=== PATIENT | female | born 1960 | race Caucasian/White ===

== ENCOUNTER 2016-10-15 08:08 | Emergency (ER) | payer MEDICARE, MEDICAID ==
[2016-10-15] MEDS ORDERED: Pantoprazole 80 MG in Sodium Chloride 0.9% 100 ML IV ONE (08:18)
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
[2016-10-15] MEDS ORDERED: Pantoprazole 80 MG in Sodium Chloride 0.9% 100 ML IV SCH (08:30)
[2016-10-15] MEDS ORDERED: Dextrose 5%-0.9% NaCl 1,000 ML IV SCH (08:30)
[2016-10-15] MEDS ORDERED: Pantoprazole 40 MG Vial IVPUSH ONE (08:33)
[2016-10-15] MEDS ORDERED: Aspirin 81 MG Tab.Chew PO ONE (10:19)
--- NOTE | 2016-10-15 10:24 | CR ---
Abdomen: Supine view of the abdomen was obtained. Comparison: No previous abdominal imaging. Mild scoliosis and slight degenerative change is noted within the spine. Calcifications are seen within the pelvis likely representing phleboliths. Mild vascular calcification is noted within the renal vessels. Surgical clips are seen within the upper right abdomen. Paucity of bowel gas is seen which is nonspecific. Impression: 1. Incidental findings as noted above. Diagnostic code #2
[2016-10-15] MEDS ORDERED: Nitroglycerin/D5W 25 MG/250 ML BOTTLE IV SCH (10:30)
[2016-10-15] MEDS ORDERED: fentaNYL 100 MCG/2 ML SDV IVPUSH ONE (10:59)
[2016-10-15] MEDS ORDERED: Iopamidol 755 MG/ML 50 ML Bottle IVPUSH ONE (11:00)
[2016-10-15] MEDS ORDERED: Sodium Chloride 0.9% 10 ML Syringe FLUSH ONE (11:00)
[2016-10-15] MEDS ORDERED: Iopamidol 755 Mg/ML 100 ML Bottle IVPUSH ONE (11:00)
[2016-10-15] MEDS ORDERED: Sodium Chloride 0.9% 100 ML IV SCH (11:00)
[2016-10-15] MEDS ORDERED: fentaNYL 100 MCG/2 ML SDV ONE (11:02)
--- NOTE | 2016-10-15 11:16 | CR ---
Chest: Frontal view of the chest was obtained in AP projection. Comparison: Previous chest x-ray of 05/11/16. Increased density within the left upper chest is seen which appears to be stable from previous exam. Previous left lung surgery is noted. Right-sided infusion port is seen. Right lung is clear. Heart does not appear enlarged. Mild scoliosis is present within the spine. Impression: 1. Parenchymal density within the left upper chest which remains stable from prior exam. Previous left lung surgery. 2. Other incidental findings. Nothing acute is identified. Diagnostic code #3
[2016-10-15] MEDS ORDERED: Sodium Chloride 0.9% 1,000 ML ONE (11:29)
--- NOTE | 2016-10-15 11:55 | CT ---
CT chest Technique: Multiple axial sections were obtained from above the lung apices inferiorly through the lung bases. Intravenous contrast was utilized. Comparison: Aorta shows mild atherosclerotic calcification. Ascending aorta slightly ectatic at 3.6 cm comparing to the descending aorta at 2.7 cm. No dissection is seen within the thoracic aorta. Enlarged lymph node is noted within the upper left mediastinum measuring 1.8 cm. Several other smaller lymph nodes are seen within the mediastinum which are within normal limits. No pericardial thickening is seen. Pleural thickening noted within the left upper chest. Parenchymal density is noted within the left upper chest with air bronchograms. Difficult to exclude pneumonia although finding may also be chronic as there is some chronic increased density within the left upper chest on chest x-ray. Impression: 1. Pleural thickening within the left upper chest. Parenchymal density within the left upper chest with air bronchograms. This parenchymal density could represent an area of pneumonia although finding may also be chronic as chronic increased density within the left upper chest as seen on chest x-ray. Please correlate with the patient's symptoms. 2. Slightly enlarged lymph node within the left upper mediastinum measuring 1.8 cm. Follow-up chest CT could be considered in 6 months to make sure this finding is stable or if older CTs are available, these would be helpful to determine stability. 3. Slightly ectatic ascending aorta with no evidence of dissection. Diagnostic code #9 CT abdomen and pelvis Technique: Multiple axial sections were obtained from above the dome of the diaphragm inferiorly through the pubic symphysis. Intravenous contrast was utilized. No oral contrast has been given. Comparison: No previous abdominal CT. Findings: Liver contour is irregular compatible with cirrhotic change. No focal abnormality is appreciated within the liver. Spleen is enlarged with craniocaudal measurement of 20.6 cm. Adrenal glands show no nodule. Kidneys show symmetric contrast enhancement without hydronephrosis or mass. Pancreas is within normal limits. Atherosclerotic change is noted within the aorta and iliac vessels. No aneurysm or dissection is seen. No retroperitoneal adenopathy or mesenteric abnormalities are seen. No pelvic mass or adenopathy is seen. Bone window settings were reviewed which show mild scattered degenerative change within the spine. Impression: 1. Findings compatible with cirrhosis. Splenomegaly also noted. 2. Aorta shows atherosclerotic change without aneurysm or dissection. 3. Other incidental findings as noted above. Diagnostic code #3
[2016-10-15 13:54] VITALS: BP 113/70
== END 2016-10-15 11:30 ==
LOC: JD.ED 08:08 → SUPCPDRO 08:08 → JD.ED 11:30
DX: I21.4 Non-ST elevation (NSTEMI) myocardial infarction (principal); C34.92 Malignant neoplasm of unspecified part of left bronchus or lung; R11.2 Nausea with vomiting, unspecified; D64.9 Anemia, unspecified; Z87.891 Personal history of nicotine dependence; Z90.49 Acquired absence of other specified parts of digestive tract; Z85.05 Personal history of malignant neoplasm of liver; Z79.899 Other long term (current) drug therapy; Z88.0 Allergy status to penicillin; Z88.2 Allergy status to sulfonamides; R06.02 Shortness of breath
CPT/HCPCS: 36415; 71010; 71260; 74000; 74177; 80053; 82553; 83880; 84484; 85025; 85610; 85730; 86140; 86677; 86900; 86901; 87040; 93005; 96365; 96366; 96368; 96375; 96376; 99285; A9270; C9113; J3010; J7030; J7042

== ENCOUNTER 2016-11-24 11:31 | Emergency (ER) | payer MEDICARE, MEDICAID ==
[2016-11-24] MEDS ORDERED: Sodium Chloride 0.9% 10 ML Syringe FLUSH PRN (12:21)
[2016-11-24] MEDS ORDERED: Ondansetron 4 MG/2 ML SDV IVPUSH ONE (12:21)
[2016-11-24] MEDS ORDERED: Sodium Chloride 0.9% 1,000 ML IV SCH (12:30)
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
[2016-11-24 16:30] VITALS: BP 140/78
== END 2016-11-24 16:30 | disposition home or self-care (01) ==
LOC: JD.ED 11:31
DX: B34.9 Viral infection, unspecified (principal); D69.6 Thrombocytopenia, unspecified; R10.12 Left upper quadrant pain; E03.9 Hypothyroidism, unspecified; Z85.118 Personal history of other malignant neoplasm of bronchus and lung; Z98.49 Cataract extraction status, unspecified eye; Z90.49 Acquired absence of other specified parts of digestive tract; Z98.890 Other specified postprocedural states; Z87.891 Personal history of nicotine dependence; Z79.899 Other long term (current) drug therapy; Z88.0 Allergy status to penicillin; Z88.2 Allergy status to sulfonamides
CPT/HCPCS: 36415; 80053; 85025; 86308; 96361; 96374; 99284; J2405; J7040; J7050

== ENCOUNTER 2017-03-25 11:29 | Inpatient (IN) | payer MEDICARE, MEDICAID ==
[2017-03-25] MEDS ORDERED: Sodium Chloride 0.9% 1,000 ML IV ONE (11:44)
[2017-03-25] MEDS ORDERED: Pantoprazole 40 MG Vial IVPUSH ONE (11:45)
[2017-03-25] MEDS ORDERED: Dextrose 5%-0.9% NaCl 1,000 ML IV SCH (11:45)
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
[2017-03-25] MEDS: Pantoprazole 80 MG in Sodium Chloride 0.9% 100 ML IV SCH ×2 (12:18→22:38)
[2017-03-25] MEDS ORDERED: HYDROmorphone 0.5 MG/0.5 ML Syringe IVPUSH ONE ×2 (12:45→14:00)
[2017-03-25] MEDS ORDERED: Ondansetron 4 MG/2 ML SDV IVPUSH ONE (12:45)
[2017-03-25] MEDS ORDERED: Ondansetron 4 MG/2 ML SDV IV PRN (15:03)
[2017-03-25] MEDS ORDERED: Acetaminophen/HYDROcodone 325-5 MG Tab PO PRN (15:03)
[2017-03-25] MEDS ORDERED: Polyethylene Glycol 3350 Powder 17 GM Packet PO PRN (15:03)
[2017-03-25] MEDS ORDERED: Docusate Sodium 100 MG Cap PO PRN (15:03)
[2017-03-25] MEDS ORDERED: Acetaminophen 325 MG Tab PO PRN (15:03)
[2017-03-25] MEDS ORDERED: Temazepam 15 MG Cap PO PRN (15:03)
[2017-03-25] MEDS ORDERED: Albuterol/Ipratropium 3.0-0.5 MG/3 ML Neb Soln NEB PRN (15:03)
[2017-03-25] MEDS ORDERED: Bisacodyl 5 MG Tab PO PRN (15:03)
[2017-03-25] MEDS ORDERED: Promethazine 12.5 MG in Sodium Chloride 0.9% 50 ML IV PRN (15:03)
[2017-03-25] MEDS ORDERED: diphenhydrAMINE 25 MG Cap PO PRN (15:14)
[2017-03-25] MEDS ORDERED: ClonazePAM 0.5 MG Tab PO PRN (15:14)
[2017-03-25] MEDS ORDERED: hydrALAZINE 20 MG/ML SDV IVPUSH PRN (15:16)
[2017-03-25] MEDS ORDERED: LORazepam 2 MG/ML MDV IVPUSH PRN (15:16)
[2017-03-25] MEDS ORDERED: Diphtheria,Pertussis(Acell),Tetanus Vaccine 0.5 ML SDV IM ONE (15:25)
--- NOTE | 2017-03-25 16:03 | PCM.HP ---
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 Pain (Mild 1-3)/fever Hydrocodone Bitart/Acetaminophen ([place] 325-5 Mg) 1 tab PO Q4H PRN PRN Reason: Pain (moderate 4-6) Albuterol/Ipratropium (Duoneb 3.0-0.5 Mg/3 Ml) 3 ml NEB Q4H PRN PRN Reason: Shortness Of Breath/wheezing Bisacodyl (Dulcolax) 5 mg PO DAILY PRN PRN Reason: Constipation Clonazepam (Klonopin) 0.5 mg PO TID PRN PRN Reason: Anxiety Last Admin: 03/25/17 17:35 Dose: 0.5 mg Clonidine HCl (Catapres) 0.2 mg PO BEDTIME [facility] Diphenhydramine HCl (Benadryl) 25 mg PO ASDIRECTED PRN PRN Reason: Itching Docusate Sodium (Colace) 100 mg PO BID PRN PRN Reason: Constipation Ferrous Sulfate (Ferrous Sulfate) 325 mg PO BID LISA Hydralazine HCl (Apresoline) 20 mg IVPUSH Q4H PRN PRN Reason: Hypertension Hydromorphone HCl (Dilaudid) 0.25 mg IVPUSH Q2H PRN PRN Reason: Pain (severe 7-10) Last Admin: 03/25/17 16:07 Dose: 0.25 mg Hydromorphone HCl (Dilaudid) 4 mg PO 09,21 [facility] Dextrose/Sodium Chloride (Dextrose 5%-Normal Saline) 1,000 mls @ 250 mls/hr IV ASDIRECTED [facility] Last Admin: 03/25/17 12:05 Dose: 250 mls/hr Pantoprazole Sodium 80 mg/ (Sodium Chloride) 100 mls @ 10 mls/hr IV Q10H LISA Last Admin: 03/25/17 12:18 Dose: 10 mls/hr Promethazine HCl 12.5 mg/ (Sodium Chloride) 50.5 mls @ 100 mls/hr IV Q6H PRN PRN Reason: Nausea/Vomiting Sodium Chloride (Normal Saline) 1,000 mls @ 125 mls/hr IV ASDIRECTED [facility] Last Admin: 03/25/17 16:38 Dose: 125 mls/hr Lamotrigine (Lamotrigine) 100 mg PO TID [facility] Levothyroxine Sodium (Levothyroxine) 75 mcg PO DAILY [facility] Lorazepam (Ativan) 1 mg IV Q6H PRN PRN Reason: Anxiety Lorazepam (Ativan) 2 mg IVPUSH Q4H PRN PRN Reason: Seizures Magnesium Sulfate (Pharmacy To Dose - Magnesium Replacement) 1 dose .XX ASDIRECTED [facility] Multivitamins (Thera) 1 each PO DAILY [facility] Ondansetron HCl (Zofran) 4 mg IV Q6H PRN PRN Reason: Nausea/Vomiting Last Admin: 03/25/17 18:00 Dose: 4 mg Polyethylene Glycol (Miralax) 17 gm PO DAILY PRN PRN Reason: Constipation Potassium Chloride (Pharmacy To Dose - Potassium Replacement) 1 dose .XX ASDIRECTED [facility] Pregabalin (Lyrica) 150 mg PO TID [facility] Pregabalin (Lyrica) 50 mg PO TID [facility] Senna/Docusate Sodium (Senna Plus) 1 tab PO BID PRN PRN Reason: Constipation Sucralfate (Carafate) 1 gm PO QIDACANDBED [facility] Last Admin: 03/25/17 17:35 Dose: 1 gm Admin: 03/25/17 16:06 Dose: 1 gm Temazepam (Restoril) 15 mg PO BEDTIME PRN PRN Reason: Sleep Assessment/Plan Comment:: Assessment/Plan: Acute: Upper GI Bleed - Carries a hx/o in the past; underwent cauterization in September for suspected ulcer - Already on PPI, will add carafate - NPO except for ice chips, sips of water and oral meds - GS consult for further eval - Avoid NSAIDs and Anticoags - Monitor H/H Profound Hypotension - Documented 74/56 mmHg - Already received some fluids in ED - Continue volume resuscitation - Type and Cross for 2 units of Hgb continues to drop - Monitor Chronic: Impaired Vision Lung CA S/p Left Lobectomy Hx/o GI Bleed Hx/o Colonic polyp Hypothyroidism Anxiety Chronic Pain Plan: Admit to ICU for hemodynamic monitoring Routine AM Labs and H/H check Resume Home Meds GS consult PT/OT consult DVT PPx: SCDS; GI PPx: Protonix drip SW/CM for d/c planning Additional orders as above Code status:1
[2017-03-25] MEDS: Sucralfate 1 GM Tab PO SCH ×3 (16:06→22:37)
[2017-03-25] MEDS: HYDROmorphone 0.5 MG/0.5 ML Syringe IVPUSH PRN (16:07)
[2017-03-25] MEDS: Sodium Chloride 0.9% 1,000 ML IV SCH ×2 (16:38→23:19)
--- NOTE | 2017-03-25 18:12 | PCM.CONSN ---
- General Info Date of Service: 03/25/17 - Patient Data Vitals - Most Recent: Last Vital Signs Temp 97.1 F 03/25/17 16:00 Pulse 102 H 03/25/17 16:00 Resp 22 H 03/25/17 16:00 BP 117/77 03/25/17 16:00 Pulse Ox 97 03/25/17 16:00 Weight - Most Recent: 107.184 kg I&O - Last 24 Hours: Intake & Output 03/25/17 03/25/17 03/25/17 07:59 15:59 23:59 Intake Total 960 Balance 960 Lab Results Last 24 Hours: Laboratory Results - last 24 hr 03/25/17 03/25/17 Range/Units 16:04 16:58 Hgb 11.2 11.0 L (11.2-15.7) gm/L Hct 32.0 L (34.1-44.9) % Med Orders - Current: Current Medications Acetaminophen (Tylenol) 650 mg PO Q4H PRN PRN Reason: Pain (Mild 1-3)/fever Hydrocodone Bitart/Acetaminophen ([place] 325-5 Mg) 1 tab PO Q4H PRN PRN Reason: Pain (moderate 4-6) Albuterol/Ipratropium (Duoneb 3.0-0.5 Mg/3 Ml) 3 ml NEB Q4H PRN PRN Reason: Shortness Of Breath/wheezing Bisacodyl (Dulcolax) 5 mg PO DAILY PRN PRN Reason: Constipation Clonazepam (Klonopin) 0.5 mg PO TID PRN PRN Reason: Anxiety Last Admin: 03/25/17 17:35 Dose: 0.5 mg Clonidine HCl (Catapres) 0.2 mg PO BEDTIME [facility] Diphenhydramine HCl (Benadryl) 25 mg PO ASDIRECTED PRN PRN Reason: Itching Docusate Sodium (Colace) 100 mg PO BID PRN PRN Reason: Constipation Ferrous Sulfate (Ferrous Sulfate) 325 mg PO BID [facility] Hydralazine HCl (Apresoline) 20 mg IVPUSH Q4H PRN PRN Reason: Hypertension Hydromorphone HCl (Dilaudid) 0.25 mg IVPUSH Q2H PRN PRN Reason: Pain (severe 7-10) Last Admin: 03/25/17 16:07 Dose: 0.25 mg Hydromorphone HCl (Dilaudid) 4 mg PO 09,21 [facility] Dextrose/Sodium Chloride (Dextrose 5%-Normal Saline) 1,000 mls @ 250 mls/hr IV ASDIRECTED [facility] Last Admin: 03/25/17 12:05 Dose: 250 mls/hr Pantoprazole Sodium 80 mg/ (Sodium Chloride) 100 mls @ 10 mls/hr IV Q10H [facility] Last Admin: 03/25/17 12:18 Dose: 10 mls/hr Promethazine HCl 12.5 mg/ (Sodium Chloride) 50.5 mls @ 100 mls/hr IV Q6H PRN PRN Reason: Nausea/Vomiting Sodium Chloride (Normal Saline) 1,000 mls @ 125 mls/hr IV ASDIRECTED [facility] Last Admin: 03/25/17 16:38 Dose: 125 mls/hr Lamotrigine (Lamotrigine) 100 mg PO TID [facility] Levothyroxine Sodium (Levothyroxine) 75 mcg PO DAILY [facility] Lorazepam (Ativan) 1 mg IV Q6H PRN PRN Reason: Anxiety Lorazepam (Ativan) 2 mg IVPUSH Q4H PRN PRN Reason: Seizures Magnesium Sulfate (Pharmacy To Dose - Magnesium Replacement) 1 dose .XX ASDIRECTED [facility] Multivitamins (Thera) 1 each PO DAILY [facility] Ondansetron HCl (Zofran) 4 mg IV Q6H PRN PRN Reason: Nausea/Vomiting Last Admin: 03/25/17 18:00 Dose: 4 mg Polyethylene Glycol (Miralax) 17 gm PO DAILY PRN PRN Reason: Constipation Potassium Chloride (Pharmacy To Dose - Potassium Replacement) 1 dose .XX ASDIRECTED [facility] Pregabalin (Lyrica) 150 mg PO TID [facility] Pregabalin (Lyrica) 50 mg PO TID [facility] Senna/Docusate Sodium (Senna Plus) 1 tab PO BID PRN PRN Reason: Constipation Sucralfate (Carafate) 1 gm PO QIDACANDBED [facility] Last Admin: 03/25/17 17:35 Dose: 1 gm Temazepam (Restoril) 15 mg PO BEDTIME PRN PRN Reason: Sleep Discontinued Medications Diphtheria/Tetanus/Acell Pertussis (Adacel) 0.5 ml IM .ONCE ONE Stop: 03/25/17 15:26 Hydromorphone HCl (Dilaudid) 0.5 mg IVPUSH ONETIME ONE Stop: 03/25/17 12:46 Last Admin: 03/25/17 12:50 Dose: 0.5 mg Hydromorphone HCl (Dilaudid) 0.5 mg IVPUSH ONETIME ONE Stop: 03/25/17 14:01 Last Admin: 03/25/17 14:07 Dose: 0.5 mg Sodium Chloride (Normal Saline) 1,000 mls @ 500 mls/hr IV ONETIME ONE Stop: 03/25/17 13:43 Last Admin: 03/25/17 11:51 Dose: 500 mls/hr Ondansetron HCl (Zofran) 4 mg IVPUSH ONETIME ONE Stop: 03/25/17 12:46 Last Admin: 03/25/17 12:48 Dose: 4 mg Pantoprazole Sodium (Protonix Iv) 80 mg IVPUSH .BOLUS ONE Stop: 03/25/17 11:46 Last Admin: 03/25/17 11:59 Dose: 80 mg Consult PN Assessment/Plan Procedures: Procedures ASSAY OF MAGNESIUM (05/08/16) ASSAY OF NATRIURETIC PEPTIDE (10/15/16) ASSAY OF TROPONIN QUANT (10/15/16) ASSAY THYROID STIM HORMONE (04/23/15) BLOOD CULTURE FOR BACTERIA (10/15/16) BLOOD TYPING SEROLOGIC ABO (10/15/16) BLOOD TYPING SEROLOGIC RH(D) (10/15/16) C-REACTIVE PROTEIN (10/15/16) CHEST X-RAY 1 VIEW FRONTAL (10/15/16) CHEST X-RAY 2VW FRONTAL&LATL (05/08/16) COMPATIBILITY TEST ANTIGLOB (05/08/16) COMPLETE CBC AUTOMATED (05/08/16) COMPLETE CBC W/AUTO DIFF WBC (11/24/16) COMPREHEN METABOLIC PANEL (11/24/16) CREATINE MB FRACTION (10/15/16) CT ABD & PELV W/CONTRAST (10/15/16) CT THORAX W/DYE (10/15/16) CULTURE OTHR SPECIMN AEROBIC (01/21/17) CULTURE SCREEN ONLY (05/08/16) ELECTROCARDIOGRAM TRACING (10/15/16) EMERGENCY DEPT VISIT (11/24/16) EMERGENCY DEPT VISIT (10/15/16) FIBRIN DEGRADATION QUANT (04/23/15) GAIT TRAINING THERAPY (05/08/16) HELICOBACTER PYLORI ANTIBODY (10/15/16) HEMATOCRIT (05/08/16) HEMOGLOBIN (05/08/16) HETEROPHILE ANTIBODY SCREEN (11/24/16) HYDRATE IV INFUSION ADD-ON (11/24/16) MEASURE BLOOD OXYGEN LEVEL (05/08/16) METABOLIC PANEL TOTAL CA (05/08/16) MR-STAPH DNA AMP PROBE (02/24/15) MRI LUMBAR SPINE W/O DYE (09/13/15) MRI NECK SPINE W/O DYE (09/13/15) MYCOPLASMA ANTIBODY (05/08/16) OCCULT BLD FECES 1-3 TESTS (05/08/16) OFFICE/OUTPATIENT VISIT EST (01/27/17) OFFICE/OUTPATIENT VISIT EST (01/24/17) OT EVALUATION (05/08/16) PROTHROMBIN TIME (10/15/16) PT EVALUATION (05/08/16) RBC ANTIBODY SCREEN (05/08/16) ROUTINE VENIPUNCTURE (11/24/16) STREP A AG IA (05/08/16) THER/DIAG CONCURRENT INF (10/15/16) THER/PROPH/DIAG INJ IV PUSH (11/24/16) THER/PROPH/DIAG IV INF ADDON (10/15/16) THER/PROPH/DIAG IV INF INIT (10/15/16) THERAPEUTIC ACTIVITIES (05/08/16) THERAPEUTIC EXERCISES (05/08/16) THROMBOPLASTIN TIME PARTIAL (10/15/16) TX/PRO/DX INJ NEW DRUG ADDON (10/15/16) TX/PRO/DX INJ SAME DRUG CLINICAL APPLICATIONS MANAGER (10/15/16) X-RAY EXAM OF ABDOMEN (10/15/16) X-RAY EXAM OF ANKLE (05/08/16) Problem List Initiated/Reviewed/Updated: Yes Plan: surgical consult dictated WES
[2017-03-25] MEDS: LORazepam 2 MG/ML MDV IV PRN (18:54)
[2017-03-25] MEDS: Pregabalin 75 MG Cap PO SCH (20:34)
[2017-03-25] MEDS: Pregabalin 25 MG Cap PO SCH (20:34)
[2017-03-25] MEDS: Ferrous Sulfate 325 MG Tab PO SCH (20:35)
[2017-03-25] MEDS: cloNIDine 0.1 MG Tab PO SCH (20:35)
[2017-03-25] MEDS: lamoTRIgine 100 MG Tab PO SCH (20:36)
[2017-03-25] MEDS: HYDROmorphone 2 MG Tab PO SCH (20:37)
[2017-03-26] MEDS: Sodium Chloride 0.9% 1,000 ML IV SCH (05:37)
[2017-03-26] MEDS: Sucralfate 1 GM Tab PO SCH ×4 (05:38→17:24)
[2017-03-26] MEDS ORDERED: Magnesium Oxide 400 MG Tab PO ONE ×2 (07:30→14:45)
--- NOTE | 2017-03-26 08:51 | CONS ---
CONSULTING PHYSICIAN: Sim Solis MD DATE OF CONSULTATION: 03/25/2017 HISTORY OF PRESENT ILLNESS: This is a 57-year-old who comes into the ER with vomiting blood and later dark tarry stools. The patient gives a history to me of having multiple episodes of vomiting starting at 7 o'clock this morning and stopping about 11 o'clock coming into the emergency room, where she was evaluated and then admitted to the hospital. Her vital signs show slight tachycardia of 100, blood pressure was in the teens and laboratory data showed initially a hemoglobin of 13 which had dropped down to 11.2 while in the hospital. The patient has had a couple of black tarry stools. The patient states that she has had this problem in September, although it was coffee-ground emesis that she had and was seen by Dr. Randhawa where colonoscopy was done showing some tubular adenomas, but the upper GI endoscopy showed some ulcers, not sure what type of reports are being requested from [facility]. In any case, the patient underwent coagulation of the ulcers in the stomach and placed on Protonix ever since. She had not had any further trouble until now. She does also give a history that prior to all this happening, she had numerous diarrhea stools. It is to note that this history she has given me is somewhat different than the history she gave to the admitting physician. The patient denies any use of drugs or alcohol or smoking, although she did smoke in the past. She has had a left upper lobe lobectomy in the past for lung cancer. REVIEW OF SYSTEMS: She does have some vague abdominal pain, crampy in nature. No chest pain, shortness of breath, cough, hoarseness, wheezing, weakness, numbness, convulsions, or fainting episodes. MEDICATIONS: Per medication reconciliation form. PAST MEDICAL HISTORY: GI bleed in the past as stated above. She has had bladder mass surgery, left upper lobectomy, history of mood swings. She has fibromyalgia for which she takes Lyrica and has hypertension and she is on enalapril and Catapres. FAMILY HISTORY: Noncontributory. PHYSICAL EXAMINATION: GENERAL: Alert, cooperative female. History is somewhat suspect. Temperature 98, pulse 119, respirations 15, blood pressure is 117/85. EYES: Sclerae white. Extraocular muscle motion normal. Oral cavity, healthy mucous membrane with mouth and tongue. NECK: Supple. No nodes. No thyromegaly. Trachea midline. LUNGS: Clear. No rales, rhonchi, fremitus, or dullness. HEART: Heart tones, sinus tachycardia, low grade 100. No murmurs appreciated. No S3, S4, jugular venous distention. ABDOMEN: Soft. No tenderness, guarding, rebound, or organomegaly. EXTREMITIES: Upper and lower extremities, no angulation deformities. NEUROLOGIC: She is alert and oriented x3. No sensorineural deficit. PSYCHIATRIC: Affect is normal. ASSESSMENT: Gastrointestinal bleed, poor historian, probably upper gastrointestinal bleed. We will recommend upper GI endoscopy. It was noted that her Helicobacter pylori is negative and we will schedule that for tomorrow. MMROHIT /[id number]
--- NOTE | 2017-03-26 09:05 | PCM.PN ---
- General Info Date of Service: 03/26/17 Admission Dx/Problem (Free Text): Admission Diagnosis/Problem Admission Diagnosis/Problem Gastrointestinal hemorrhage Subjective Update: Follow Up Functional Status: Reports: Pain Controlled, Ambulating, Urinating. Denies: New Symptoms - Review of Systems General: Denies: Fever, Fatigue, Malaise, Chills HEENT: Reports: No Symptoms Pulmonary: Denies: Shortness of Breath Cardiovascular: Denies: Chest Pain Gastrointestinal: Denies: Abdominal Pain, Nausea, Vomiting Genitourinary: Reports: No Symptoms Musculoskeletal: Reports: No Symptoms Skin: Denies: Cyanosis, Pallor, Diaphoresis, Rash Neurological: Denies: Confusion, Difficulty Walking, Weakness, Gait Disturbance Psychiatric: Denies: Depression, Anxiety, Agitation, Hallucinations, Homicidal Ideation Systems Review Comment:: No significant overnight or acute issues. She feels okay. She has done well after endoscopy. She complaints of abdominal sore but no more than usual. Her Hgb dropped to 9.2 but has not had any episode of hematemesis. - Patient Data Vitals - Most Recent: Last Vital Signs Temp 36.8 C 03/26/17 08:00 Pulse 81 03/26/17 08:00 Resp 16 03/26/17 08:00 BP 148/88 H 03/26/17 08:45 Pulse Ox 94 L 03/26/17 08:00 Weight - Most Recent: 112.945 kg I&O - Last 24 Hours: Intake & Output 03/25/17 03/26/17 03/26/17 22:59 06:59 14:59 Intake Total 960 1748 Output Total 400 600 Balance 560 1148 Lab Results Last 24 Hours: Laboratory Results - last 24 hr 03/25/17 03/25/17 03/25/17 Range/Units 16:04 16:58 23:00 WBC (3.98-10.04) K/mm3 RBC (3.98-5.22) M/mm3 Hgb 11.2 11.0 L 9.8 L (11.2-15.7) gm/L Hct 32.0 L 29.3 L (34.1-44.9) % MCV (79.4-94.8) fl MCH (25.6-32.2) pg MCHC (32.2-35.5) g/dl RDW Std Deviation (36.4-46.3) fL Plt Count (182-369) K/mm3 MPV (9.4-12.3) fl Sodium (136-145) mEq/L Potassium (3.5-5.1) mEq/L Chloride (98-107) mEq/L Carbon Dioxide (21-32) mEq/L Anion Gap (5-15) BUN (7-18) mg/dL Creatinine (0.55-1.02) mg/dL Est Cr Clr Drug Dosing mL/min Estimated GFR (MDRD) (>60) mL/min BUN/Creatinine Ratio (14-18) Glucose (74-106) mg/dL Calcium (8.5-10.1) mg/dL Magnesium (1.8-2.4) mg/dl 03/26/17 03/26/17 Range/Units 06:00 06:00 WBC 8.28 (3.98-10.04) K/mm3 RBC 2.88 L (3.98-5.22) M/mm3 Hgb 9.2 L (11.2-15.7) gm/L Hct 27.3 L (34.1-44.9) % MCV 94.8 (79.4-94.8) fl MCH 31.9 (25.6-32.2) pg MCHC 33.7 (32.2-35.5) g/dl RDW Std Deviation 46.2 (36.4-46.3) fL Plt Count 72 L (182-369) K/mm3 MPV 9.7 (9.4-12.3) fl Sodium 147 H (136-145) mEq/L Potassium 3.5 (3.5-5.1) mEq/L Chloride 115 H (98-107) mEq/L Carbon Dioxide 24 (21-32) mEq/L Anion Gap 11.5 (5-15) BUN 31 H (7-18) mg/dL Creatinine 0.7 (0.55-1.02) mg/dL Est Cr Clr Drug Dosing 94.73 mL/min Estimated GFR (MDRD) > 60 (>60) mL/min BUN/Creatinine Ratio 44.3 H (14-18) Glucose 117 H (74-106) mg/dL Calcium 8.2 L (8.5-10.1) mg/dL Magnesium 1.7 L (1.8-2.4) mg/dl Med Orders - Current: Current Medications Acetaminophen (Tylenol) 650 mg PO Q4H PRN PRN Reason: Pain (Mild 1-3)/fever Hydrocodone Bitart/Acetaminophen ([place] 325-5 Mg) 1 tab PO Q4H PRN PRN Reason: Pain (moderate 4-6) Albuterol/Ipratropium (Duoneb 3.0-0.5 Mg/3 Ml) 3 ml NEB Q4H PRN PRN Reason: Shortness Of Breath/wheezing Bisacodyl (Dulcolax) 5 mg PO DAILY PRN PRN Reason: Constipation Clonazepam (Klonopin) 0.5 mg PO TID PRN PRN Reason: Anxiety Last Admin: 03/25/17 17:35 Dose: 0.5 mg Clonidine HCl (Catapres) 0.2 mg PO BEDTIME [facility] Last Admin: 03/25/17 20:35 Dose: 0.2 mg Docusate Sodium (Colace) 100 mg PO BID PRN PRN Reason: Constipation Ferrous Sulfate (Ferrous Sulfate) 325 mg PO BID [facility] Last Admin: 03/25/17 20:35 Dose: 325 mg Hydralazine HCl (Apresoline) 20 mg IVPUSH Q4H PRN PRN Reason: Hypertension Hydromorphone HCl (Dilaudid) 0.25 mg IVPUSH Q2H PRN PRN Reason: Pain (severe 7-10) Last Admin: 03/25/17 16:07 Dose: 0.25 mg Hydromorphone HCl (Dilaudid) 4 mg PO 09,21 [facility] Last Admin: 03/25/17 20:37 Dose: 4 mg Promethazine HCl 12.5 mg/ (Sodium Chloride) 50.5 mls @ 100 mls/hr IV Q6H PRN PRN Reason: Nausea/Vomiting Sodium Chloride (Normal Saline) 1,000 mls @ 125 mls/hr IV ASDIRECTED [facility] Last Admin: 03/26/17 05:37 Dose: 125 mls/hr Lamotrigine (Lamotrigine) 100 mg PO TID [facility] Last Admin: 03/25/17 20:36 Dose: 100 mg Levothyroxine Sodium (Levothyroxine) 75 mcg PO ACBREAKFAST [facility] Lorazepam (Ativan) 1 mg IV Q6H PRN PRN Reason: Anxiety Last Admin: 03/25/17 18:54 Dose: 1 mg Lorazepam (Ativan) 2 mg IVPUSH Q4H PRN PRN Reason: Seizures Magnesium Sulfate (Pharmacy To Dose - Magnesium Replacement) 1 dose .XX ASDIRECTED [facility] Multivitamins (Thera) 1 each PO DAILY [facility] Ondansetron HCl (Zofran) 4 mg IV Q6H PRN PRN Reason: Nausea/Vomiting Last Admin: 03/25/17 18:00 Dose: 4 mg Pantoprazole Sodium (Protonix Iv) 40 mg IVPUSH Q12H [facility] Polyethylene Glycol (Miralax) 17 gm PO DAILY PRN PRN Reason: Constipation Potassium Chloride (Pharmacy To Dose - Potassium Replacement) 1 dose .XX ASDIRECTED [facility] Pregabalin (Lyrica) 150 mg PO TID [facility] Last Admin: 03/25/17 20:34 Dose: 150 mg Pregabalin (Lyrica) 50 mg PO TID [facility] Last Admin: 03/25/17 20:34 Dose: 50 mg Senna/Docusate Sodium (Senna Plus) 1 tab PO BID PRN PRN Reason: Constipation Sucralfate (Carafate) 1 gm PO QIDACANDBED [facility] Last Admin: 03/26/17 06:43 Dose: Not Given Temazepam (Restoril) 15 mg PO BEDTIME PRN PRN Reason: Sleep Discontinued Medications Diphtheria/Tetanus/Acell Pertussis (Adacel) 0.5 ml IM .ONCE ONE Stop: 03/25/17 15:26 Hydromorphone HCl (Dilaudid) 0.5 mg IVPUSH ONETIME ONE Stop: 03/25/17 12:46 Last Admin: 03/25/17 12:50 Dose: 0.5 mg Hydromorphone HCl (Dilaudid) 0.5 mg IVPUSH ONETIME ONE Stop: 03/25/17 14:01 Last Admin: 03/25/17 14:07 Dose: 0.5 mg Dextrose/Sodium Chloride (Dextrose 5%-Normal Saline) 1,000 mls @ 250 mls/hr IV ASDIRECTED [facility] Last Admin: 03/25/17 12:05 Dose: 250 mls/hr Pantoprazole Sodium 80 mg/ (Sodium Chloride) 100 mls @ 10 mls/hr IV Q10H [facility] Last Admin: 10/03/17 22:38 Dose: 10 mls/hr Sodium Chloride (Normal Saline) 1,000 mls @ 500 mls/hr IV ONETIME ONE Stop: 03/25/17 13:43 Last Admin: 03/25/17 11:51 Dose: 500 mls/hr Magnesium Oxide (Magnesium Oxide) 400 mg PO ONETIME ONE Stop: 03/26/17 07:31 Ondansetron HCl (Zofran) 4 mg IVPUSH ONETIME ONE Stop: 03/25/17 12:46 Last Admin: 03/25/17 12:48 Dose: 4 mg Pantoprazole Sodium (Protonix Iv) 80 mg IVPUSH .BOLUS ONE Stop: 03/25/17 11:46 Last Admin: 03/25/17 11:59 Dose: 80 mg - Exam General: Alert, Oriented, Cooperative, No Acute Distress HEENT: Pupils Equal, Pupils Reactive, EOMI, Mucous Membr. Moist/[place] Neck: Supple, Trachea Midline, No JVD, No Thyromegaly Lungs: Clear to Auscultation, Normal Respiratory Effort Cardiovascular: Regular Rate, Regular Rhythm GI/Abdominal Exam: Normal Bowel Sounds, Soft, Non-Tender, No Organomegaly, No Distention, No Abnormal Bruit, No Mass (Female) Exam: Deferred Back Exam: Normal Inspection, Decreased Range of Motion Extremities: Normal Inspection, Normal Range of Motion, Non-Tender, No Pedal Edema, Normal Capillary Refill Peripheral Pulses: 2+: Dorsalis Pedis (L), Dorsalis Pedis (R) Skin: Warm, Dry, Intact Neurological: No New Focal Deficit Psy/Mental Status: Alert, Normal Affect, Normal Mood - Problem List Review Problem List Initiated/Reviewed/Updated: Yes - My Orders Last 24 Hours: My Active Orders 03/25/17 15:03 Height and Weight [RC] 04 Oxygen Therapy [RC] PRN Up With Assistance [RC] ASDIRECTED Up ad Pamela [RC] ASDIRECTED VTE/DVT Education [RC] BID Vital Signs [RC] Q4HR Acetaminophen [Tylenol] 650 mg PO Q4H PRN Acetaminophen/HYDROcodone [[place] 325-5 MG] 1 tab PO Q4H PRN Albuterol/Ipratropium [DuoNeb 3.0-0.5 MG/3 ML] 3 ml NEB Q4H PRN Bisacodyl [Dulcolax] 5 mg PO DAILY PRN Docusate Sodium [Colace] 100 mg PO BID PRN Docusate Sodium/Sennosides [Senna Plus] 1 tab PO BID PRN HYDROmorphone [Dilaudid] 0.25 mg IVPUSH Q2H PRN LORazepam [Ativan] 1 mg IV Q6H PRN Ondansetron [Zofran] 4 mg IV Q6H PRN Polyethylene Glycol 3350 [MiraLAX] 17 gm PO DAILY PRN Promethazine [Phenergan] 12.5 mg Sodium Chloride 0.9% [Normal Saline] 50 ml IV Q6H Temazepam [Restoril] 15 mg PO BEDTIME PRN Resuscitation Status Routine 03/25/17 15:04 Cardiac Monitoring [RC] CONTINUOUS Intake and Output [RC] ,,03/25/17 15:05 Sequential Compression Device [OM.PC] Per Unit Routine 03/25/17 15:08 Antiembolic Devices [RC] RT Aerosol Therapy [RC] .PRN Consult to Case Management [CONS] Routine Consult to Biometric Fingerprinting Technician [CONS] Routine 03/25/17 15:14 ClonazePAM [KlonoPIN] 0.5 mg PO TID PRN 03/25/17 15:15 Sodium Chloride 0.9% [Normal Saline] 1,000 ml IV ASDIRECTED Sucralfate [Carafate] 1 gm PO QIDACANDBED 03/25/17 15:16 LORazepam [Ativan] 2 mg IVPUSH Q4H PRN hydrALAZINE [Apresoline] 20 mg IVPUSH Q4H PRN 03/25/17 15:25 Vaccines to be Administered [RC] PER UNIT ROUTINE 03/25/17 15:27 Transfuse PRBC [Transfuse Red Blood Cells] [COMM] Routine 03/25/17 15:30 Magnesium Rep Pharmacy to Dose [Pharmacy to Dose - Magnesium Replacement] 1 dose .XX ASDIRECTED Potassium Rep Pharmacy to Dose [Pharmacy to Dose - Potassium Replacement] 1 dose .XX ASDIRECTED 03/25/17 15:59 Notify Provider Consults [RC] ASDIRECTED Consult to Physician [CONS] Routine 03/25/17 21:00 Ferrous Sulfate 325 mg PO BID HYDROmorphone [Dilaudid] 4 mg PO , Pregabalin [Lyrica] 150 mg PO TID Pregabalin [Lyrica] 50 mg PO TID cloNIDine [Catapres] 0.2 mg PO BEDTIME lamoTRIgine 100 mg PO TID 03/25/17 Lunch Nothing per Oral Now Diet [DIET] 03/26/17 07:15 Levothyroxine 75 mcg PO ACBREAKFAST 03/26/17 09:00 Multivitamins,Therapeutic [Thera] 1 each PO DAILY Pantoprazole [ProTONIX IV] 40 mg IVPUSH Q12H 03/27/17 05:11 BASIC METABOLIC PANEL,BMP [CHEM] AM MAGNESIUM [CHEM] AM 03/28/17 05:11 BASIC METABOLIC PANEL,BMP [CHEM] AM MAGNESIUM [CHEM] AM 03/29/17 05:11 BASIC METABOLIC PANEL,BMP [CHEM] AM MAGNESIUM [CHEM] AM - Plan Plan:: Assessment/Plan: Acute: Upper GI Bleed S/p EGD - 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 (2 spot located on endoscopy) - Hgb 13.4 --> 9.2 (may have hemodilution component due to IVFs) - Carries a hx/o in the past; underwent cauterization in September for suspected ulcer - On PPI and carafate; will d/c carafacte - Resume regular diet - Abdominal U/S to assess the liver - GS following - Avoid NSAIDs and Anticoags - Monitor H/H Esophageal Varices - S/p EGD - PPI and Propranolol 40 mg po BID - Abdominal U/S to assess liver Resolved: Profound Hypotension - Documented 74/56 mmHg--> improved, most recent BP:122/61 mmHg - Already received some fluids in ED - Continue volume resuscitation - Type and Cross for 2 units of Hgb continues to drop - Monitor Chronic: Impaired Vision Lung CA S/p Left Lobectomy Hx/o GI Bleed Hx/o Colonic polyp Hypothyroidism Anxiety Chronic Pain Plan: She is clinically much better Transfer to [facility]Surg with Tele Routine AM Labs GS following Continue PT/OT DVT PPx: SCDS; GI PPx: PPI IVP BID SW/CM for d/c planning GI follow in [place] after discharge Additional orders as above Code status:1
[2017-03-26] MEDS: HYDROmorphone 2 MG Tab PO SCH ×2 (09:07→20:14)
[2017-03-26] MEDS: Pantoprazole 40 MG Vial IVPUSH SCH ×2 (09:09→20:18)
[2017-03-26] MEDS ORDERED: fentaNYL 100 MCG/2 ML SDV ONE (10:12)
[2017-03-26] MEDS ORDERED: Propofol 200 MG/20 ML SDV ONE ×2 (10:12→11:27)
[2017-03-26] MEDS ORDERED: Lidocaine 1% 0 ML ONE (10:12)
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
[2017-03-26] MEDS ORDERED: Lidocaine 1% 4 ML ONE (11:27)
--- NOTE | 2017-03-26 12:19 | PCM.OPNOTE ---
- General Post-Op/Procedure Note Date of Surgery/Procedure: 03/26/17 Operative Procedure(s): EGD with bx Findings: esophageal varix Pre Op Diagnosis: gi bleeding Post-Op Diagnosis: Same Anesthesia Technique: MAC Primary Surgeon: Sim Solis EBL in mLs: 0 Complications: None Condition: Good Free Text/Narrative:: Intake & Output 03/25/17 03/26/17 03/26/17 23:59 07:59 15:59 Intake Total 960 1748 Output Total 400 600 300 Balance 560 1148 -300
[2017-03-26] MEDS: Multivitamins,Therapeutic Tab PO SCH (14:15)
[2017-03-26] MEDS: Pregabalin 75 MG Cap PO SCH ×3 (14:20→20:17)
[2017-03-26] MEDS: Pregabalin 25 MG Cap PO SCH ×3 (14:20→20:16)
[2017-03-26] MEDS: lamoTRIgine 100 MG Tab PO SCH ×3 (14:21→20:17)
[2017-03-26] MEDS: Levothyroxine 75 MCG Tab PO SCH (14:23)
[2017-03-26] MEDS: Ferrous Sulfate 325 MG Tab PO SCH ×2 (14:23→20:17)
--- NOTE | 2017-03-26 14:46 | US ---
Addendum: Blood flow within the portal vein is hepatopetal. --- Addendum1 above dictated on [03/27/2017 08:59] by [Rudi Lawson, Good Santana] --- --- Addendum1 above signed on [03/27/2017 09:00] by [Rudi Lawson Hilton J.] --- --- Original report below dictated on [03/26/2017 14:40] by [Rudi Lawson Hilton J.] --- --- Original report below signed on [03/26/2017 14:42] by [Rudi Lawson, Good Santana] --- Limited abdominal ultrasound: Multiple real-time images of the upper right abdomen were obtained. Liver not optimally seen but is grossly unremarkable. Right kidney shows no hydronephrosis or mass and measures 10.8 cm in length. Previous cholecystectomy is noted. Common bile duct measures normal. Pancreas is obscured from bowel gas. Impression: 1. Less than optimal visualization of the liver, liver is grossly unremarkable. 2. Previous cholecystectomy with no biliary duct dilatation. 3. Pancreas is obscured from bowel gas. Diagnostic code #2 --- Addendum1 signed ---
[2017-03-26] MEDS: Pantoprazole 80 MG in Sodium Chloride 0.9% 100 ML IV SCH (15:24)
[2017-03-26] MEDS: Sodium Chloride 0.9% 10 ML Syringe FLUSH PRN ×2 (18:13→18:15)
[2017-03-26] MEDS: Zolpidem 10 MG Tab PO SCH (20:17)
[2017-03-26] MEDS: cloNIDine 0.1 MG Tab PO SCH (20:18)
[2017-03-26] MEDS: Propranolol 40 MG Tab PO SCH ×2 (20:18→20:26)
[2017-03-27] MEDS: Sodium Chloride 0.9% 10 ML Syringe FLUSH PRN (00:40)
[2017-03-27] MEDS: LORazepam 2 MG/ML MDV IV PRN ×2 (00:40→17:11)
[2017-03-27] MEDS: Levothyroxine 75 MCG Tab PO SCH (05:48)
--- NOTE | 2017-03-27 07:04 | OR ---
DATE OF OPERATION: 03/26/2017 SURGEON: Sim Solis MD PREOPERATIVE DIAGNOSIS: Gastrointestinal bleed. POSTOPERATIVE DIAGNOSIS: Gastrointestinal bleed. OPERATION PERFORMED: Esophagogastroduodenoscopy with biopsy. FINDINGS: Some mild inflammation of the antrum. 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 Two esophageal varices were noted within inflammation at the GE junction. The second portion of the duodenum and duodenal bulb did not show any acute disease as did the body, cardia, antrum, and fundus. Procedure done was EGD with biopsy done under IV sedation. DESCRIPTION OF PROCEDURE: The patient was taken to the endoscopy room, placed in a supine position, connected to monitoring equipment, given IV sedation, placed in the left lateral position. Bite block was inserted and video Olympus gastroscope placed in the posterior oropharynx under direct vision, threaded past the cricopharyngeus, down the esophagus into the stomach. The stomach was insufflated and the scope passed through the pylorus to the second portion of the duodenum, slowly withdrawn; showing normal second portion of the duodenum, duodenal bulb, and pyloric channel. Antrum showed little redness and was biopsied. Body and cardia, stomach and fundus, and J-maneuver did not show any acute disease. It was, however, an incompetent hiatus. Scope was withdrawn to the GE junction, which showed inflammation and 2 varices going into that inflammation. They went up for about 5 cm from the GE junction. There were no gastric varices noted. Rest of the esophagus viewed as the scope withdrawn. The patient tolerated the procedure and sent to recovery room in a stable condition. ANESTHESIA: ESTIMATED BLOOD LOSS: MMODAL /[id number]
[2017-03-27] MEDS ORDERED: Magnesium Oxide 400 MG Tab PO ONE (08:00)
[2017-03-27] MEDS ORDERED: Potassium Chloride 20 MEQ Tab.ER PO ONE (08:00)
[2017-03-27] MEDS ORDERED: Sodium Chloride 0.9% 1,000 ML ONE (08:14)
[2017-03-27] MEDS ORDERED: Sodium Chloride 0.9% 1,000 ML IV ONE ×2 (08:16→15:00)
[2017-03-27] MEDS: Pregabalin 25 MG Cap PO SCH ×3 (08:46→21:35)
[2017-03-27] MEDS: Multivitamins,Therapeutic Tab PO SCH (08:46)
[2017-03-27] MEDS: lamoTRIgine 100 MG Tab PO SCH ×3 (08:48→21:34)
[2017-03-27] MEDS: Pregabalin 75 MG Cap PO SCH ×3 (08:49→21:34)
[2017-03-27] MEDS: HYDROmorphone 2 MG Tab PO SCH ×2 (08:49→21:45)
[2017-03-27] MEDS: Ferrous Sulfate 325 MG Tab PO SCH ×2 (08:49→21:33)
[2017-03-27] MEDS: Pantoprazole 40 MG Vial IVPUSH SCH ×2 (08:50→21:35)
[2017-03-27] MEDS ORDERED: Enalapril 5 MG Tab PO SCH (09:00)
[2017-03-27] MEDS: Propranolol 40 MG Tab PO SCH ×2 (09:02→22:07)
--- NOTE | 2017-03-27 09:42 | PCM.PN ---
<Ly Quintanilla - Last Filed: 03/27/17 09:35> - General Info Date of Service: 03/27/17 Functional Status: Reports: Tolerating Diet, Ambulating, Urinating - Review of Systems General: Reports: Fatigue HEENT: Reports: Headaches (along temporal regions and top of her head) Pulmonary: Reports: No Symptoms Cardiovascular: Reports: No Symptoms Gastrointestinal: Reports: Abdominal Pain (epigastric, umbilical, and hypogastric regions) Genitourinary: Reports: No Symptoms Musculoskeletal: Reports: Leg Pain (left leg mildly tender to palpation) Skin: Reports: No Symptoms Neurological: Reports: Dizziness Psychiatric: Reports: No Symptoms Systems Review Comment:: She says she has a headache that started shortly before receiving blood. She says it's a throbbing pain along both temporal regions and at the top of her head. She said she's had similar headaches off and on for the past few weeks. Sometimes they are associated with sweating. She rates the pain as 8/10. She says she has some discomfort and pain in her left leg along the calf. It is mildly tender to palpation. Her abdominal pain is a dull pain along the midline (epigastric, umbilical, and hypogastric regions). The pain has improved since yesterday. She says she feels fatigued, weak, and dizzy this morning. The nurse notes that she has been hypotensive this morning. - Patient Data Vitals - Most Recent: Last Vital Signs Temp 97.4 F 03/27/17 09:30 Pulse 62 03/27/17 04:00 Resp 18 03/27/17 09:30 BP 112/50 L 03/27/17 09:30 Pulse Ox 96 03/27/17 07:43 Weight - Most Recent: 109.769 kg I&O - Last 24 Hours: Intake & Output 03/26/17 03/27/17 03/27/17 22:59 06:59 14:59 Intake Total 1764 800 0 Output Total 600 300 Balance 1164 500 0 Lab Results Last 24 Hours: Laboratory Results - last 24 hr 03/27/17 03/27/17 Range/Units 05:25 05:25 WBC 4.65 (3.98-10.04) K/mm3 RBC 2.42 L (3.98-5.22) M/mm3 Hgb 7.9 L (11.2-15.7) gm/L Hct 23.6 L (34.1-44.9) % MCV 97.5 H (79.4-94.8) fl MCH 32.6 H (25.6-32.2) pg MCHC 33.5 (32.2-35.5) g/dl RDW Std Deviation 46.0 (36.4-46.3) fL Plt Count 55 L (182-369) K/mm3 MPV 10.2 (9.4-12.3) fl Neut % (Auto) 62.8 (34.0-71.1) % Lymph % (Auto) 27.3 (19.3-51.7) % [place] % (Auto) 8.2 (4.7-12.5) % Eos % (Auto) 0.6 L (0.7-5.8) Baso % (Auto) 0.9 (0.1-1.2) % Neut # (Auto) 2.92 (1.56-6.13) K/mm3 Lymph # (Auto) 1.27 (1.18-3.74) K/mm3 [place] # (Auto) 0.38 H (0.24-0.36) K/mm3 Eos # (Auto) 0.03 L (0.04-0.36) K/mm3 Baso # (Auto) 0.04 (0.01-0.08) K/mm3 Manual Slide Review Abnormal smear Sodium 143 (136-145) mEq/L Potassium 3.4 L (3.5-5.1) mEq/L Chloride 109 H (98-107) mEq/L Carbon Dioxide 26 (21-32) mEq/L Anion Gap 11.4 (5-15) BUN 17 (7-18) mg/dL Creatinine 0.7 (0.55-1.02) mg/dL Est Cr Clr Drug Dosing 94.73 mL/min Estimated GFR (MDRD) > 60 (>60) mL/min BUN/Creatinine Ratio 24.3 H (14-18) Glucose 94 (74-106) mg/dL Calcium 8.6 (8.5-10.1) mg/dL Magnesium 1.8 (1.8-2.4) mg/dl Med Orders - Current: Current Medications Acetaminophen (Tylenol) 650 mg PO Q4H PRN PRN Reason: Pain (Mild 1-3)/fever Hydrocodone Bitart/Acetaminophen ([place] 325-5 Mg) 1 tab PO Q4H PRN PRN Reason: Pain (moderate 4-6) Albuterol/Ipratropium (Duoneb 3.0-0.5 Mg/3 Ml) 3 ml NEB Q4H PRN PRN Reason: Shortness Of Breath/wheezing Bisacodyl (Dulcolax) 5 mg PO DAILY PRN PRN Reason: Constipation Clonazepam (Klonopin) 0.5 mg PO TID PRN PRN Reason: Anxiety Last Admin: 03/25/17 17:35 Dose: 0.5 mg Clonidine HCl (Catapres) 0.2 mg PO BEDTIME [facility] Last Admin: 03/26/17 20:18 Dose: 0.2 mg Docusate Sodium (Colace) 100 mg PO BID PRN PRN Reason: Constipation Enalapril Maleate (Vasotec) 5 mg PO DAILY [facility] Last Admin: 03/27/17 09:02 Dose: Not Given Ferrous Sulfate (Ferrous Sulfate) 325 mg PO BID [facility] Last Admin: 03/27/17 08:49 Dose: 325 mg Hydralazine HCl (Apresoline) 20 mg IVPUSH Q4H PRN PRN Reason: Hypertension Hydromorphone HCl (Dilaudid) 0.25 mg IVPUSH Q2H PRN PRN Reason: Pain (severe 7-10) Last Admin: 03/25/17 16:07 Dose: 0.25 mg Hydromorphone HCl (Dilaudid) 4 mg PO 09, [facility] Last Admin: 03/27/17 08:49 Dose: 4 mg Promethazine HCl 12.5 mg/ (Sodium Chloride) 50.5 mls @ 100 mls/hr IV Q6H PRN PRN Reason: Nausea/Vomiting Sodium Chloride (Normal Saline) 1,000 mls @ 30 mls/hr IV ONETIME ONE Stop: 03/28/17 17:35 Last Admin: 03/27/17 08:50 Dose: 30 mls/hr Lamotrigine (Lamotrigine) 100 mg PO TID [facility] Last Admin: 03/27/17 08:48 Dose: 100 mg Levothyroxine Sodium (Levothyroxine) 75 mcg PO ACBREAKFAST [facility] Last Admin: 03/27/17 05:48 Dose: 75 mcg Lorazepam (Ativan) 1 mg IV Q6H PRN PRN Reason: Anxiety Last Admin: 03/27/17 00:40 Dose: 1 mg Lorazepam (Ativan) 2 mg IVPUSH Q4H PRN PRN Reason: Seizures Magnesium Sulfate (Pharmacy To Dose - Magnesium Replacement) 1 dose .XX ASDIRECTED [facility] Multivitamins (Thera) 1 each PO DAILY [facility] Last Admin: 03/27/17 08:46 Dose: 1 each Ondansetron HCl (Zofran) 4 mg IV Q6H PRN PRN Reason: Nausea/Vomiting Last Admin: 03/25/17 18:00 Dose: 4 mg Pantoprazole Sodium (Protonix Iv) 40 mg IVPUSH Q12H [facility] Last Admin: 03/27/17 08:50 Dose: 40 mg Polyethylene Glycol (Miralax) 17 gm PO DAILY PRN PRN Reason: Constipation Potassium Chloride (Pharmacy To Dose - Potassium Replacement) 1 dose .XX ASDIRECTED [facility] Pregabalin (Lyrica) 150 mg PO TID [facility] Last Admin: 03/27/17 08:49 Dose: 150 mg Pregabalin (Lyrica) 50 mg PO TID [facility] Last Admin: 03/27/17 08:46 Dose: 50 mg Propranolol HCl (Inderal) 40 mg PO BID [facility] Last Admin: 03/27/17 09:02 Dose: Not Given Senna/Docusate Sodium (Senna Plus) 1 tab PO BID PRN PRN Reason: Constipation Sodium Chloride (Saline Flush) 10 ml FLUSH ASDIRECTED PRN PRN Reason: Keep Vein Open Last Admin: 03/27/17 00:40 Dose: 10 ml Temazepam (Restoril) 15 mg PO BEDTIME PRN PRN Reason: Sleep Zolpidem Tartrate (Ambien) 10 mg PO BEDTIME [facility] Last Admin: 03/26/17 20:17 Dose: 10 mg Discontinued Medications Diphtheria/Tetanus/Acell Pertussis (Adacel) 0.5 ml IM .ONCE ONE Stop: 03/25/17 15:26 Fentanyl (Sublimaze) Confirm Administered Dose 100 mcg .ROUTE .STK-MED ONE Stop: 03/26/17 10:13 Hydromorphone HCl (Dilaudid) 0.5 mg IVPUSH ONETIME ONE Stop: 03/25/17 12:46 Last Admin: 03/25/17 12:50 Dose: 0.5 mg Hydromorphone HCl (Dilaudid) 0.5 mg IVPUSH ONETIME ONE Stop: 03/25/17 14:01 Last Admin: 03/25/17 14:07 Dose: 0.5 mg Dextrose/Sodium Chloride (Dextrose 5%-Normal Saline) 1,000 mls @ 250 mls/hr IV ASDIRECTED [facility] Last Admin: 03/25/17 12:05 Dose: 250 mls/hr Pantoprazole Sodium 80 mg/ (Sodium Chloride) 100 mls @ 10 mls/hr IV Q10H [facility] Last Admin: 03/26/17 15:24 Dose: Not Given Sodium Chloride (Normal Saline) 1,000 mls @ 500 mls/hr IV ONETIME ONE Stop: 03/25/17 13:43 Last Admin: 03/25/17 11:51 Dose: 500 mls/hr Sodium Chloride (Normal Saline) 1,000 mls @ 125 mls/hr IV ASDIRECTED [facility] Last Admin: 03/26/17 05:37 Dose: 125 mls/hr Lidocaine HCl (Xylocaine-Mpf 1%) Confirm Administered Dose 4 mls @ as directed .ROUTE .STK-MED ONE Stop: 03/26/17 10:13 Lidocaine HCl (Xylocaine-Mpf 1%) Confirm Administered Dose 4 mls @ as directed .ROUTE .STK-MED ONE Stop: 03/26/17 11:28 Sodium Chloride (Normal Saline) Confirm Administered Dose 1,000 mls @ as directed .ROUTE .STK-MED ONE Stop: 03/27/17 08:15 Last Admin: 03/27/17 08:46 Dose: Not Given Magnesium Oxide (Magnesium Oxide) 400 mg PO ONETIME ONE Stop: 03/26/17 07:31 Last Admin: 03/26/17 15:11 Dose: 400 mg Magnesium Oxide (Magnesium Oxide) 400 mg PO ONETIME ONE Stop: 03/26/17 14:46 Last Admin: 03/26/17 15:12 Dose: Not Given Magnesium Oxide (Magnesium Oxide) 400 mg PO ONETIME ONE Stop: 03/27/17 08:01 Last Admin: 03/27/17 08:49 Dose: 400 mg Ondansetron HCl (Zofran) 4 mg IVPUSH ONETIME ONE Stop: 03/25/17 12:46 Last Admin: 03/25/17 12:48 Dose: 4 mg Pantoprazole Sodium (Protonix Iv) 80 mg IVPUSH .BOLUS ONE Stop: 03/25/17 11:46 Last Admin: 03/25/17 11:59 Dose: 80 mg Potassium Chloride (Klor-Con M20) 40 meq PO ONETIME ONE Stop: 03/27/17 08:01 Last Admin: 03/27/17 08:50 Dose: 40 meq Propofol (Diprivan 20 Ml) Confirm Administered Dose 200 mg .ROUTE .STK-MED ONE Stop: 03/26/17 10:13 Propofol (Diprivan 20 Ml) Confirm Administered Dose 200 mg .ROUTE .STK-MED ONE Stop: 03/26/17 11:28 Sucralfate (Carafate) 1 gm PO QIDACANDBED LISA Last Admin: 03/26/17 17:24 Dose: Not Given - Exam General: Alert, Oriented, Cooperative HEENT: Pupils Equal, Pupils Reactive, EOMI Neck: Supple Lungs: Clear to Auscultation, Normal Respiratory Effort Cardiovascular: Regular Rate, Regular Rhythm GI/Abdominal Exam: Normal Bowel Sounds, Soft, No Organomegaly, No Distention, No Mass, Tender (epigastric, umbilicial, and hypogastric regions) (Female) Exam: Deferred Extremities: Normal Inspection, No Pedal Edema, Normal Capillary Refill, Leg Pain (left leg) Peripheral Pulses: 1+: Radial (L), Radial (R) Skin: Warm, Dry, Intact Neurological: No New Focal Deficit Psy/Mental Status: Alert, Normal Affect, Normal Mood Physical Findings Comments:: She appears pale, but she is alert and answers questions appropriately. She has some tenderness to palpation in the epigastric, umbilical, and hypogastric regions of her abdomen. There are no palpable masses or distension. She has some tenderness to palpation in her posterior left leg. There is no swelling or skin changes. - Problem List Review Problem List Initiated/Reviewed/Updated: Yes - Assessment Assessment:: Assessment: Anemia secondary to GI bleeding from esophageal varices Hgb dropped from 9.2 to 7.9 Hypotensive secondary to GI bleeding Headache Left posterior leg pain - Plan Plan:: Plan: She is receiving 2 units of blood Continue to monitor hgb Consider iron supplementation Continue propranolol and monitor blood pressure Monitor headache for worsening pain or nonresponsiveness to analgesics Continue to encourage the use of compression stockings Referral to GI specialist Routine care <Maddison Weems T - Last Filed: 03/27/17 17:52> - General Info Admission Dx/Problem (Free Text): Hematemesis Subjective Update: Follow Up Functional Status: Reports: Pain Controlled, Tolerating Diet, Ambulating, Urinating. Denies: New Symptoms - Review of Systems General: Reports: Fatigue. Denies: Fever, Weakness, Malaise, Chills HEENT: Denies: Headaches Pulmonary: Denies: Shortness of Breath, Pleuritic Chest Pain Cardiovascular: Denies: Chest Pain, Dyspnea on Exertion, Lightheadedness Gastrointestinal: Reports: Other (abdominal discomfort). Denies: Decreased Appetite, Diarrhea, Difficulty Swallowing, Hematochezia, Melena, Nausea, Vomiting Genitourinary: Reports: No Symptoms Musculoskeletal: Reports: No Symptoms Skin: Reports: No Symptoms Neurological: Reports: Gait Disturbance. Denies: Confusion, Dizziness, Headache , Seizure, Syncope, Difficulty Walking, Weakness Psychiatric: Denies: Depression, Anxiety, Hallucinations Systems Review Comment:: No significant overnight or acute issues. She was hypotensive this am and Hgb dropped to 7.9. She report no GI bleed: Hematemesis and Rectal Bleed or Melenic Stool. She feels tired. She slept on and off. She has not been getting her klonopin as scheduled. She has no other complaints. - Patient Data Vitals - Most Recent: Last Vital Signs Temp 36.5 C 03/27/17 16:00 Pulse 62 03/27/17 04:00 Resp 14 03/27/17 16:00 BP 90/52 L 03/27/17 16:00 Pulse Ox 96 03/27/17 16:00 I&O - Last 24 Hours: Intake & Output 03/27/17 03/27/17 03/27/17 06:59 14:59 22:59 Intake Total 800 1420 1600 Output Total 300 500 Balance 935 786 [id number] Lab Results Last 24 Hours: Laboratory Results - last 24 hr 03/27/17 03/27/17 Range/Units 05:25 05:25 WBC 4.65 (3.98-10.04) K/mm3 RBC 2.42 L (3.98-5.22) M/mm3 Hgb 7.9 L (11.2-15.7) gm/L Hct 23.6 L (34.1-44.9) % MCV 97.5 H (79.4-94.8) fl MCH 32.6 H (25.6-32.2) pg MCHC 33.5 (32.2-35.5) g/dl RDW Std Deviation 46.0 (36.4-46.3) fL Plt Count 55 L (182-369) K/mm3 MPV 10.2 (9.4-12.3) fl Neut % (Auto) 62.8 (34.0-71.1) % Lymph % (Auto) 27.3 (19.3-51.7) % [place] % (Auto) 8.2 (4.7-12.5) % Eos % (Auto) 0.6 L (0.7-5.8) Baso % (Auto) 0.9 (0.1-1.2) % Neut # (Auto) 2.92 (1.56-6.13) K/mm3 Lymph # (Auto) 1.27 (1.18-3.74) K/mm3 [place] # (Auto) 0.38 H (0.24-0.36) K/mm3 Eos # (Auto) 0.03 L (0.04-0.36) K/mm3 Baso # (Auto) 0.04 (0.01-0.08) K/mm3 Manual Slide Review Abnormal smear Sodium 143 (136-145) mEq/L Potassium 3.4 L (3.5-5.1) mEq/L Chloride 109 H (98-107) mEq/L Carbon Dioxide 26 (21-32) mEq/L Anion Gap 11.4 (5-15) BUN 17 (7-18) mg/dL Creatinine 0.7 (0.55-1.02) mg/dL Est Cr Clr Drug Dosing 94.73 mL/min Estimated GFR (MDRD) > 60 (>60) mL/min BUN/Creatinine Ratio 24.3 H (14-18) Glucose 94 (74-106) mg/dL Calcium 8.6 (8.5-10.1) mg/dL Magnesium 1.8 (1.8-2.4) mg/dl Med Orders - Current: Current Medications Acetaminophen (Tylenol) 650 mg PO Q4H PRN PRN Reason: Pain (Mild 1-3)/fever Hydrocodone Bitart/Acetaminophen ([place] 325-5 Mg) 1 tab PO Q4H PRN PRN Reason: Pain (moderate 4-6) Albuterol/Ipratropium (Duoneb 3.0-0.5 Mg/3 Ml) 3 ml NEB Q4H PRN PRN Reason: Shortness Of Breath/wheezing Bisacodyl (Dulcolax) 5 mg PO DAILY PRN PRN Reason: Constipation Clonazepam (Klonopin) 0.5 mg PO TID [facility] Clonidine HCl (Catapres) 0.2 mg PO BEDTIME [facility] Last Admin: 03/26/17 20:18 Dose: 0.2 mg Diphenhydramine HCl (Benadryl) 25 mg PO DAILY [facility] Last Admin: 03/27/17 12:17 Dose: 25 mg Docusate Sodium (Colace) 100 mg PO BID PRN PRN Reason: Constipation Ferrous Sulfate (Ferrous Sulfate) 325 mg PO BID [facility] Last Admin: 03/27/17 08:49 Dose: 325 mg Hydralazine HCl (Apresoline) 20 mg IVPUSH Q4H PRN PRN Reason: Hypertension Hydromorphone HCl (Dilaudid) 0.25 mg IVPUSH Q2H PRN PRN Reason: Pain (severe 7-10) Last Admin: 03/25/17 16:07 Dose: 0.25 mg Hydromorphone HCl (Dilaudid) 4 mg PO 09,21 [facility] Last Admin: 03/27/17 08:49 Dose: 4 mg Promethazine HCl 12.5 mg/ (Sodium Chloride) 50.5 mls @ 100 mls/hr IV Q6H PRN PRN Reason: Nausea/Vomiting Sodium Chloride (Normal Saline) 1,000 mls @ 30 mls/hr IV ONETIME ONE Stop: 03/28/17 17:35 Last Admin: 03/27/17 08:50 Dose: 30 mls/hr Lamotrigine (Lamotrigine) 100 mg PO TID [facility] Last Admin: 03/27/17 14:11 Dose: 100 mg Levothyroxine Sodium (Levothyroxine) 75 mcg PO ACBREAKFAST [facility] Last Admin: 03/27/17 05:48 Dose: 75 mcg Lorazepam (Ativan) 1 mg IV Q6H PRN PRN Reason: Anxiety Last Admin: 03/27/17 17:11 Dose: 1 mg Lorazepam (Ativan) 2 mg IVPUSH Q4H PRN PRN Reason: Seizures Magnesium Sulfate (Pharmacy To Dose - Magnesium Replacement) 1 dose .XX ASDIRECTED [facility] Multivitamins (Thera) 1 each PO DAILY [facility] Last Admin: 03/27/17 08:46 Dose: 1 each Ondansetron HCl (Zofran) 4 mg IV Q6H PRN PRN Reason: Nausea/Vomiting Last Admin: 03/25/17 18:00 Dose: 4 mg Pantoprazole Sodium (Protonix Iv) 40 mg IVPUSH Q12H [facility] Last Admin: 03/27/17 08:50 Dose: 40 mg Polyethylene Glycol (Miralax) 17 gm PO DAILY PRN PRN Reason: Constipation Potassium Chloride (Pharmacy To Dose - Potassium Replacement) 1 dose .XX ASDIRECTED [facility] Pregabalin (Lyrica) 150 mg PO TID [facility] Last Admin: 03/27/17 14:12 Dose: 150 mg Pregabalin (Lyrica) 50 mg PO TID [facility] Last Admin: 03/27/17 14:12 Dose: 50 mg Propranolol HCl (Inderal) 40 mg PO BID [facility] Last Admin: 03/27/17 09:02 Dose: Not Given Senna/Docusate Sodium (Senna Plus) 1 tab PO BID PRN PRN Reason: Constipation Sodium Chloride (Saline Flush) 10 ml FLUSH ASDIRECTED PRN PRN Reason: Keep Vein Open Last Admin: 03/27/17 00:40 Dose: 10 ml Temazepam (Restoril) 15 mg PO BEDTIME PRN PRN Reason: Sleep Zolpidem Tartrate (Ambien) 10 mg PO BEDTIME [facility] Last Admin: 03/26/17 20:17 Dose: 10 mg Discontinued Medications Clonazepam (Klonopin) 0.5 mg PO TID PRN PRN Reason: Anxiety Last Admin: 03/25/17 17:35 Dose: 0.5 mg Diphtheria/Tetanus/Acell Pertussis (Adacel) 0.5 ml IM .ONCE ONE Stop: 03/25/17 15:26 Enalapril Maleate (Vasotec) 5 mg PO DAILY [facility] Last Admin: 03/27/17 09:02 Dose: Not Given Fentanyl (Sublimaze) Confirm Administered Dose 100 mcg .ROUTE .ST-MED ONE Stop: 03/26/17 10:13 Hydromorphone HCl (Dilaudid) 0.5 mg IVPUSH ONETIME ONE Stop: 03/25/17 12:46 Last Admin: 03/25/17 12:50 Dose: 0.5 mg Hydromorphone HCl (Dilaudid) 0.5 mg IVPUSH ONETIME ONE Stop: 03/25/17 14:01 Last Admin: 03/25/17 14:07 Dose: 0.5 mg Dextrose/Sodium Chloride (Dextrose 5%-Normal Saline) 1,000 mls @ 250 mls/hr IV ASDIRECTED [facility] Last Admin: 03/25/17 12:05 Dose: 250 mls/hr Pantoprazole Sodium 80 mg/ (Sodium Chloride) 100 mls @ 10 mls/hr IV Q10H [facility] Last Admin: 03/26/17 15:24 Dose: Not Given Sodium Chloride (Normal Saline) 1,000 mls @ 500 mls/hr IV ONETIME ONE Stop: 03/25/17 13:43 Last Admin: 03/25/17 11:51 Dose: 500 mls/hr Sodium Chloride (Normal Saline) 1,000 mls @ 125 mls/hr IV ASDIRECTED [facility] Last Admin: 03/26/17 05:37 Dose: 125 mls/hr Lidocaine HCl (Xylocaine-Mpf 1%) Confirm Administered Dose 4 mls @ as directed .ROUTE .ST-MED ONE Stop: 03/26/17 10:13 Lidocaine HCl (Xylocaine-Mpf 1%) Confirm Administered Dose 4 mls @ as directed .ROUTE .ST-MED ONE Stop: 03/26/17 11:28 Sodium Chloride (Normal Saline) Confirm Administered Dose 1,000 mls @ as directed .ROUTE .ST-MED ONE Stop: 03/27/17 08:15 Last Admin: 03/27/17 08:46 Dose: Not Given Sodium Chloride (Normal Saline) 1,000 mls @ 999 mls/hr IV ONETIME ONE Stop: 03/27/17 16:00 Last Admin: 03/27/17 14:59 Dose: 999 mls/hr Magnesium Oxide (Magnesium Oxide) 400 mg PO ONETIME ONE Stop: 03/26/17 07:31 Last Admin: 03/26/17 15:11 Dose: 400 mg Magnesium Oxide (Magnesium Oxide) 400 mg PO ONETIME ONE Stop: 03/26/17 14:46 Last Admin: 03/26/17 15:12 Dose: Not Given Magnesium Oxide (Magnesium Oxide) 400 mg PO ONETIME ONE Stop: 03/27/17 08:01 Last Admin: 03/27/17 08:49 Dose: 400 mg Ondansetron HCl (Zofran) 4 mg IVPUSH ONETIME ONE Stop: 03/25/17 12:46 Last Admin: 03/25/17 12:48 Dose: 4 mg Pantoprazole Sodium (Protonix Iv) 80 mg IVPUSH .BOLUS ONE Stop: 03/25/17 11:46 Last Admin: 03/25/17 11:59 Dose: 80 mg Potassium Chloride (Klor-Con M20) 40 meq PO ONETIME ONE Stop: 03/27/17 08:01 Last Admin: 03/27/17 08:50 Dose: 40 meq Propofol (Diprivan 20 Ml) Confirm Administered Dose 200 mg .ROUTE .STK-MED ONE Stop: 03/26/17 10:13 Propofol (Diprivan 20 Ml) Confirm Administered Dose 200 mg .ROUTE .STK-MED ONE Stop: 03/26/17 11:28 Sucralfate (Carafate) 1 gm PO QIDACANDBED LISA Last Admin: 03/26/17 17:24 Dose: Not Given - Exam General: Alert, Oriented, Cooperative HEENT: Pupils Equal, Pupils Reactive, EOMI, Mucous Membr. Moist/May Neck: Supple Lungs: Clear to Auscultation, Normal Respiratory Effort Cardiovascular: Regular Rate, Regular Rhythm GI/Abdominal Exam: Normal Bowel Sounds, Soft, No Organomegaly, No Distention, No Mass, Tender (Female) Exam: Deferred Back Exam: Normal Inspection, Decreased Range of Motion Extremities: Normal Inspection, Normal Range of Motion, Non-Tender, No Pedal Edema, Normal Capillary Refill, Leg Pain Skin: Warm, Dry, Intact Neurological: No New Focal Deficit Psy/Mental Status: Alert, Normal Affect, Normal Mood. No: Anxious - Problem List Review Problem List Initiated/Reviewed/Updated: Yes - My Orders Last 24 Hours: My Active Orders 03/26/17 21:00 Zolpidem [Ambien] 10 mg PO BEDTIME 03/26/17 Dinner Regular Diet [DIET] 03/27/17 08:16 Sodium Chloride 0.9% [Normal Saline] 1,000 ml IV ONETIME 03/27/17 12:15 diphenhydrAMINE [Benadryl] 25 mg PO DAILY 03/27/17 18:00 HEMOGLOBIN/HEMATOCRIT,HH [HEME] Routine 03/27/17 21:00 ClonazePAM [KlonoPIN] 0.5 mg PO TID 03/28/17 05:11 BASIC METABOLIC PANEL,BMP [CHEM] AM MAGNESIUM [CHEM] AM 03/29/17 05:11 BASIC METABOLIC PANEL,BMP [CHEM] AM MAGNESIUM [CHEM] AM - Assessment Assessment:: Assessment/Plan: Acute: Anemia - Hgb this am is 7.9 - 2/2 GI Bleed - Type and Crossed 2 units of PRBC - Repeat H/H at 1800 - Consider IV Infusion in AM Upper GI Bleed S/p EGD - 2/2 Esophageal Varices (2 spot located on endoscopy) - Hgb 13.4 --> 9.2 --> 7.9 - Carries a hx/o in the past; underwent cauterization in September for suspected ulcer - On PPI and Propranolol - Abdominal U/S: benign findings - GS following - Avoid NSAIDs and Anticoags - Monitor H/H Esophageal Varices - S/p EGD - PPI and Propranolol 40 mg po BID - Abdominal U/S: benign findings Recurrent Hypotension - BPs 98/52, 98/53 and 92/42 mmHg - No active GI Bleeding; likely cathcing up to her from her initial bleed - Hold BP meds - Transfusing 2 units of PRBCS and Volume Resuscitation - Will monitor Resolved: Profound Hypotension - Documented 74/56 mmHg--> improved, most recent BP:122/61 mmHg - Already received some fluids in ED - Continue volume resuscitation - Type and Cross for 2 units of Hgb continues to drop - Monitor Chronic: Impaired Vision Lung CA S/p Left Lobectomy Hx/o GI Bleed Hx/o Colonic polyp Hypothyroidism Anxiety, Resume Home Klonopin Dose Chronic Pain - Plan Plan:: Plan: She looks fairly stable but hypotensive Routine AM Labs Consider IV Iron infusion in AM GS following Continue PT/OT DVT PPx: SCDS; GI PPx: PPI IVP BID SW/CM for d/c planning GI follow in [place] after discharge Additional orders as above Code status:1
[2017-03-27] MEDS: diphenhydrAMINE 25 MG Cap PO SCH (12:17)
[2017-03-27] MEDS: ClonazePAM 0.5 MG Tab PO SCH (21:33)
[2017-03-27] MEDS: Zolpidem 10 MG Tab PO SCH (21:33)
[2017-03-27] MEDS ORDERED: Sodium Chloride 0.9% 250 ML IV SCH (23:45)
[2017-03-28] MEDS: Levothyroxine 75 MCG Tab PO SCH (05:47)
[2017-03-28] MEDS ORDERED: Magnesium Oxide 400 MG Tab PO ONE (08:00)
[2017-03-28] MEDS: HYDROmorphone 0.5 MG/0.5 ML Syringe IVPUSH PRN ×2 (09:53→23:53)
[2017-03-28] MEDS: HYDROmorphone 2 MG Tab PO SCH ×2 (10:01→20:52)
[2017-03-28] MEDS: Pregabalin 25 MG Cap PO SCH ×3 (10:01→20:44)
[2017-03-28] MEDS: Potassium Chloride 20 MEQ Tab.ER PO SCH ×2 (10:01→12:49)
[2017-03-28] MEDS: Pantoprazole 40 MG Vial IVPUSH SCH ×2 (10:01→20:45)
[2017-03-28] MEDS: Propranolol 40 MG Tab PO SCH ×2 (10:02→20:43)
[2017-03-28] MEDS: diphenhydrAMINE 25 MG Cap PO SCH (10:02)
[2017-03-28] MEDS: ClonazePAM 0.5 MG Tab PO SCH ×3 (10:02→20:53)
[2017-03-28] MEDS: Multivitamins,Therapeutic Tab PO SCH (10:02)
[2017-03-28] MEDS: lamoTRIgine 100 MG Tab PO SCH ×3 (10:02→20:43)
[2017-03-28] MEDS: Pregabalin 75 MG Cap PO SCH ×3 (10:02→20:43)
[2017-03-28] MEDS: Ferrous Sulfate 325 MG Tab PO SCH ×2 (10:02→20:53)
--- NOTE | 2017-03-28 15:54 | PCM.PN ---
- General Info Date of Service: 03/28/17 Admission Dx/Problem (Free Text): Hematemesis Subjective Update: Follow Up Patient seen and examined bedside with the nurse. Doing much better and denies any new problems. Patient underwent EGD yesterday which was done by Dr. Solis with results in chart. She is tolerating diet and denies any bleeding at this time. She received a total of 3 units of packed red blood cells with current hemoglobin 9.3. Functional Status: Reports: Pain Controlled, Tolerating Diet, Ambulating, Urinating. Denies: New Symptoms - Review of Systems General: Reports: No Symptoms HEENT: Reports: No Symptoms Pulmonary: Reports: No Symptoms Cardiovascular: Reports: No Symptoms Gastrointestinal: Reports: No Symptoms Genitourinary: Reports: No Symptoms Musculoskeletal: Reports: No Symptoms Skin: Reports: No Symptoms Neurological: Reports: No Symptoms Psychiatric: Reports: No Symptoms - Patient Data Vitals - Most Recent: Last Vital Signs Temp 98.4 F 03/28/17 15:17 Pulse 60 03/28/17 15:17 Resp 14 03/28/17 15:17 BP 111/58 L 03/28/17 15:17 Pulse Ox 94 L 03/28/17 15:17 Weight - Most Recent: 113.035 kg I&O - Last 24 Hours: Intake & Output 03/28/17 03/28/17 03/28/17 06:59 14:59 22:59 Intake Total 6012 004 5986 Output Total 1600 Balance 1050 200 0 Lab Results Last 24 Hours: Laboratory Results - last 24 hr 03/27/17 03/27/17 03/28/17 Range/Units 05:25 18:00 06:12 WBC (3.98-10.04) K/mm3 RBC (3.98-5.22) M/mm3 Hgb 8.8 L (11.2-15.7) gm/L Hct 26.9 L (34.1-44.9) % MCV (79.4-94.8) fl MCH (25.6-32.2) pg MCHC (32.2-35.5) g/dl RDW Std Deviation (36.4-46.3) fL Plt Count (182-369) K/mm3 MPV (9.4-12.3) fl Neut % (Auto) (34.0-71.1) % Lymph % (Auto) (19.3-51.7) % [place] % (Auto) (4.7-12.5) % Eos % (Auto) (0.7-5.8) Baso % (Auto) (0.1-1.2) % Neut # (Auto) (1.56-6.13) K/mm3 Lymph # (Auto) (1.18-3.74) K/mm3 [place] # (Auto) (0.24-0.36) K/mm3 Eos # (Auto) (0.04-0.36) K/mm3 Baso # (Auto) (0.01-0.08) K/mm3 Manual Slide Review Sodium 142 (136-145) mEq/L Potassium 3.2 L (3.5-5.1) mEq/L Chloride 107 (98-107) mEq/L Carbon Dioxide 25 (21-32) mEq/L Anion Gap 13.2 (5-15) BUN 12 (7-18) mg/dL Creatinine 0.6 (0.55-1.02) mg/dL Est Cr Clr Drug Dosing 110.52 mL/min Estimated GFR (MDRD) > 60 (>60) mL/min BUN/Creatinine Ratio 20.0 H (14-18) Glucose 92 (74-106) mg/dL Calcium 8.4 L (8.5-10.1) mg/dL Phosphorus (2.6-4.7) mg/dL Magnesium 1.8 (1.8-2.4) mg/dl Blood Type A NEGATIVE Gel Antibody Screen Negative Crossmatch See Detail 03/28/17 03/28/17 Range/Units 06:12 06:12 WBC 2.99 L (3.98-10.04) K/mm3 RBC 3.06 L (3.98-5.22) M/mm3 Hgb 9.7 L (11.2-15.7) gm/L Hct 28.9 L (34.1-44.9) % MCV 94.4 (79.4-94.8) fl MCH 31.7 (25.6-32.2) pg MCHC 33.6 (32.2-35.5) g/dl RDW Std Deviation 47.5 H (36.4-46.3) fL Plt Count 46 L (182-369) K/mm3 MPV 10.1 (9.4-12.3) fl Neut % (Auto) 63.7 (34.0-71.1) % Lymph % (Auto) 29.4 (19.3-51.7) % [place] % (Auto) 6.0 (4.7-12.5) % Eos % (Auto) 0.3 L (0.7-5.8) Baso % (Auto) 0.3 (0.1-1.2) % Neut # (Auto) 1.90 (1.56-6.13) K/mm3 Lymph # (Auto) 0.88 L (1.18-3.74) K/mm3 [place] # (Auto) 0.18 L (0.24-0.36) K/mm3 Eos # (Auto) 0.01 L (0.04-0.36) K/mm3 Baso # (Auto) 0.01 (0.01-0.08) K/mm3 Manual Slide Review Abnormal smear Sodium (136-145) mEq/L Potassium (3.5-5.1) mEq/L Chloride (98-107) mEq/L Carbon Dioxide (21-32) mEq/L Anion Gap (5-15) BUN (7-18) mg/dL Creatinine (0.55-1.02) mg/dL Est Cr Clr Drug Dosing mL/min Estimated GFR (MDRD) (>60) mL/min BUN/Creatinine Ratio (14-18) Glucose (74-106) mg/dL Calcium (8.5-10.1) mg/dL Phosphorus 3.4 (2.6-4.7) mg/dL Magnesium (1.8-2.4) mg/dl Blood Type Gel Antibody Screen Crossmatch Med Orders - Current: Current Medications Acetaminophen (Tylenol) 650 mg PO Q4H PRN PRN Reason: Pain (Mild 1-3)/fever Hydrocodone Bitart/Acetaminophen ([place] 325-5 Mg) 1 tab PO Q4H PRN PRN Reason: Pain (moderate 4-6) Albuterol/Ipratropium (Duoneb 3.0-0.5 Mg/3 Ml) 3 ml NEB Q4H PRN PRN Reason: Shortness Of Breath/wheezing Bisacodyl (Dulcolax) 5 mg PO DAILY PRN PRN Reason: Constipation Clonazepam (Klonopin) 0.5 mg PO TID [facility] Last Admin: 03/28/17 15:18 Dose: 0.5 mg Diphenhydramine HCl (Benadryl) 25 mg PO DAILY [facility] Last Admin: 03/28/17 10:02 Dose: 25 mg Docusate Sodium (Colace) 100 mg PO BID PRN PRN Reason: Constipation Ferrous Sulfate (Ferrous Sulfate) 325 mg PO BID [facility] Last Admin: 03/28/17 10:02 Dose: 325 mg Hydromorphone HCl (Dilaudid) 0.25 mg IVPUSH Q2H PRN PRN Reason: Pain (severe 7-10) Last Admin: 03/28/17 09:53 Dose: 0.25 mg Hydromorphone HCl (Dilaudid) 4 mg PO [facility] Last Admin: 03/28/17 10:01 Dose: 4 mg Promethazine HCl 12.5 mg/ (Sodium Chloride) 50.5 mls @ 100 mls/hr IV Q6H PRN PRN Reason: Nausea/Vomiting Sodium Chloride (Normal Saline) 1,000 mls @ 30 mls/hr IV ONETIME ONE Stop: 03/28/17 17:35 Last Admin: 03/27/17 08:50 Dose: 30 mls/hr Lamotrigine (Lamotrigine) 100 mg PO TID [facility] Last Admin: 03/28/17 15:18 Dose: 100 mg Levothyroxine Sodium (Levothyroxine) 75 mcg PO ACBREAKFAST [facility] Last Admin: 03/28/17 05:47 Dose: 75 mcg Lorazepam (Ativan) 1 mg IV Q6H PRN PRN Reason: Anxiety Last Admin: 03/27/17 17:11 Dose: 1 mg Lorazepam (Ativan) 2 mg IVPUSH Q4H PRN PRN Reason: Seizures Magnesium Sulfate (Pharmacy To Dose - Magnesium Replacement) 1 dose .XX ASDIRECTED [facility] Multivitamins (Thera) 1 each PO DAILY [facility] Last Admin: 03/28/17 10:02 Dose: 1 each Ondansetron HCl (Zofran) 4 mg IV Q6H PRN PRN Reason: Nausea/Vomiting Last Admin: 03/25/17 18:00 Dose: 4 mg Pantoprazole Sodium (Protonix Iv) 40 mg IVPUSH Q12H [facility] Last Admin: 03/28/17 10:01 Dose: 40 mg Polyethylene Glycol (Miralax) 17 gm PO DAILY PRN PRN Reason: Constipation Potassium Chloride (Pharmacy To Dose - Potassium Replacement) 1 dose .XX ASDIRECTED [facility] Pregabalin (Lyrica) 150 mg PO TID [facility] Last Admin: 03/28/17 15:18 Dose: 150 mg Pregabalin (Lyrica) 50 mg PO TID [facility] Last Admin: 03/28/17 15:18 Dose: 50 mg Propranolol HCl (Inderal) 40 mg PO BID [facility] Last Admin: 03/28/17 10:02 Dose: 40 mg Senna/Docusate Sodium (Senna Plus) 1 tab PO BID PRN PRN Reason: Constipation Sodium Chloride (Saline Flush) 10 ml FLUSH ASDIRECTED PRN PRN Reason: Keep Vein Open Last Admin: 03/27/17 00:40 Dose: 10 ml Temazepam (Restoril) 15 mg PO BEDTIME PRN PRN Reason: Sleep Zolpidem Tartrate (Ambien) 10 mg PO BEDTIME [facility] Last Admin: 03/27/17 21:33 Dose: 10 mg Discontinued Medications Clonazepam (Klonopin) 0.5 mg PO TID PRN PRN Reason: Anxiety Last Admin: 03/25/17 17:35 Dose: 0.5 mg Clonidine HCl (Catapres) 0.2 mg PO BEDTIME [facility] Last Admin: 03/26/17 20:18 Dose: 0.2 mg Diphtheria/Tetanus/Acell Pertussis (Adacel) 0.5 ml IM .ONCE ONE Stop: 03/25/17 15:26 Enalapril Maleate (Vasotec) 5 mg PO DAILY [facility] Last Admin: 03/27/17 09:02 Dose: Not Given Fentanyl (Sublimaze) Confirm Administered Dose 100 mcg .ROUTE .STK-MED ONE Stop: 03/26/17 10:13 Hydralazine HCl (Apresoline) 20 mg IVPUSH Q4H PRN PRN Reason: Hypertension Hydromorphone HCl (Dilaudid) 0.5 mg IVPUSH ONETIME ONE Stop: 03/25/17 12:46 Last Admin: 03/25/17 12:50 Dose: 0.5 mg Hydromorphone HCl (Dilaudid) 0.5 mg IVPUSH ONETIME ONE Stop: 03/25/17 14:01 Last Admin: 03/25/17 14:07 Dose: 0.5 mg Dextrose/Sodium Chloride (Dextrose 5%-Normal Saline) 1,000 mls @ 250 mls/hr IV ASDIRECTED [facility] Last Admin: 03/25/17 12:05 Dose: 250 mls/hr Pantoprazole Sodium 80 mg/ (Sodium Chloride) 100 mls @ 10 mls/hr IV Q10H [facility] Last Admin: 03/26/17 15:24 Dose: Not Given Sodium Chloride (Normal Saline) 1,000 mls @ 500 mls/hr IV ONETIME ONE Stop: 03/25/17 13:43 Last Admin: 03/25/17 11:51 Dose: 500 mls/hr Sodium Chloride (Normal Saline) 1,000 mls @ 125 mls/hr IV ASDIRECTED [facility] Last Admin: 03/26/17 05:37 Dose: 125 mls/hr Lidocaine HCl (Xylocaine-Mpf 1%) Confirm Administered Dose 4 mls @ as directed .ROUTE .STK-MED ONE Stop: 03/26/17 10:13 Lidocaine HCl (Xylocaine-Mpf 1%) Confirm Administered Dose 4 mls @ as directed .ROUTE .STK-MED ONE Stop: 03/26/17 11:28 Sodium Chloride (Normal Saline) Confirm Administered Dose 1,000 mls @ as directed .ROUTE .STK-MED ONE Stop: 03/27/17 08:15 Last Admin: 03/27/17 08:46 Dose: Not Given Sodium Chloride (Normal Saline) 1,000 mls @ 999 mls/hr IV ONETIME ONE Stop: 03/27/17 16:00 Last Admin: 03/27/17 14:59 Dose: 999 mls/hr Sodium Ferric Gluconat/Sucrose (125 mg/ Sodium Chloride) 110 mls @ 110 mls/hr IV ONETIME ONE Stop: 03/27/17 19:14 Last Admin: 03/28/17 01:28 Dose: Not Given Sodium Ferric Gluconat/Sucrose (125 mg/ Sodium Chloride) 110 mls @ 110 mls/hr IV ONETIME ONE Stop: 03/28/17 09:29 Last Admin: 03/28/17 11:53 Dose: Not Given Sodium Chloride (Normal Saline) 250 mls @ 30 mls/hr IV ASDIRECTED [facility] Stop: 03/28/17 04:00 Magnesium Oxide (Magnesium Oxide) 400 mg PO ONETIME ONE Stop: 03/26/17 07:31 Last Admin: 03/26/17 15:11 Dose: 400 mg Magnesium Oxide (Magnesium Oxide) 400 mg PO ONETIME ONE Stop: 03/26/17 14:46 Last Admin: 03/26/17 15:12 Dose: Not Given Magnesium Oxide (Magnesium Oxide) 400 mg PO ONETIME ONE Stop: 03/27/17 08:01 Last Admin: 03/27/17 08:49 Dose: 400 mg Magnesium Oxide (Magnesium Oxide) 400 mg PO ONETIME ONE Stop: 03/28/17 08:01 Last Admin: 03/28/17 10:02 Dose: 400 mg Ondansetron HCl (Zofran) 4 mg IVPUSH ONETIME ONE Stop: 03/25/17 12:46 Last Admin: 03/25/17 12:48 Dose: 4 mg Pantoprazole Sodium (Protonix Iv) 80 mg IVPUSH .BOLUS ONE Stop: 03/25/17 11:46 Last Admin: 03/25/17 11:59 Dose: 80 mg Potassium Chloride (Klor-Con M20) 40 meq PO ONETIME ONE Stop: 03/27/17 08:01 Last Admin: 03/27/17 08:50 Dose: 40 meq Potassium Chloride (Klor-Con M20) 40 meq PO Q4H [facility] Stop: 03/28/17 12:01 Last Admin: 03/28/17 12:49 Dose: 40 meq Propofol (Diprivan 20 Ml) Confirm Administered Dose 200 mg .ROUTE .STK-MED ONE Stop: 03/26/17 10:13 Propofol (Diprivan 20 Ml) Confirm Administered Dose 200 mg .ROUTE .STK-MED ONE Stop: 03/26/17 11:28 Sucralfate (Carafate) 1 gm PO QIDACANDBED [facility] Last Admin: 03/26/17 17:24 Dose: Not Given - Exam General: Alert, Oriented, Cooperative, No Acute Distress HEENT: Pupils Equal, Pupils Reactive, EOMI, Mucous Membr. Moist/[place] Neck: Supple Lungs: Clear to Auscultation, Normal Respiratory Effort Cardiovascular: Regular Rate, Regular Rhythm GI/Abdominal Exam: Normal Bowel Sounds, Soft, Non-Tender, No Organomegaly, No Distention, No Abnormal Bruit, No Mass, Pelvis Stable (Female) Exam: Deferred Back Exam: Normal Inspection, Full Range of Motion Extremities: Normal Inspection, Normal Range of Motion, Non-Tender, No Pedal Edema, Normal Capillary Refill Peripheral Pulses: 2+: Carotid (L), Carotid (R), Brachial (L), Brachial (R), Radial (L), Radial (R), Femoral (L), Femoral (R), Popliteal (L), Popliteal (R), Posterior Tibial (L), Posterior Tibial (R), Dorsalis Pedis (L), Dorsalis Pedis ( R) Skin: Warm, Dry, Intact Neurological: No New Focal Deficit Psy/Mental Status: Alert, Normal Affect, Normal Mood - Problem List & Annotations (1) Gastrointestinal hemorrhage SNOMED Code(s): 56210970 Code(s): K92.2 - GASTROINTESTINAL HEMORRHAGE, UNSPECIFIED Status: Acute Current Visit: Yes Qualifiers: GI bleed type/associated pathology: unspecified gastrointestinal hemorrhage type Qualified Code(s): K92.2 - Gastrointestinal hemorrhage, unspecified (2) Anemia SNOMED Code(s): 553340991 Code(s): D64.9 - ANEMIA, UNSPECIFIED Status: Acute Current Visit: No Qualifiers: Anemia type: unspecified type Qualified Code(s): D64.9 - Anemia, unspecified - Problem List Review Problem List Initiated/Reviewed/Updated: Yes - Assessment Assessment:: Assessment/Plan: Acute: Anemia -Current hemoglobin at 9.3 status post 3 units of packed red blood cell transfusion. Upper GI Bleed S/p EGD - 2/2 Esophageal Varices (2 spot located on endoscopy) - Carries a hx/o in the past; underwent cauterization in September for suspected ulcer - On PPI and Propranolol - Abdominal U/S: benign findings - GS following - Avoid NSAIDs and Anticoags - Monitor H/H Esophageal Varices - S/p EGD - PPI and Propranolol 40 mg po BID - Abdominal U/S: benign findings Recurrent Hypotension - BPs 98/52, 98/53 and 92/42 mmHg - No active GI Bleeding; likely cathcing up to her from her initial bleed - Hold BP meds - Will monitor Resolved: Profound Hypotension - Documented 74/56 mmHg--> improved, most recent BP:122/61 mmHg - Already received some fluids in ED - Continue volume resuscitation - Type and Cross for 2 units of Hgb continues to drop - Monitor Chronic: Impaired Vision Lung CA S/p Left Lobectomy Hx/o GI Bleed Hx/o Colonic polyp Hypothyroidism Anxiety, Resume Home Klonopin Dose Chronic Pain - Plan Plan:: Plan: Continue PT/OT DVT PPx: SCDS; GI PPx: PPI IVP BID SW/CM for d/c planning GI follow in [place] after discharge
[2017-03-28] MEDS ORDERED: diphenhydrAMINE 25 MG Cap PO ONE (16:01)
[2017-03-28] MEDS: Zolpidem 10 MG Tab PO SCH (20:53)
[2017-03-29] MEDS: LORazepam 2 MG/ML MDV IV PRN (00:28)
[2017-03-29] MEDS: Levothyroxine 75 MCG Tab PO SCH (06:19)
[2017-03-29] MEDS: lamoTRIgine 100 MG Tab PO SCH (08:45)
[2017-03-29] MEDS: diphenhydrAMINE 25 MG Cap PO SCH (08:45)
[2017-03-29] MEDS: ClonazePAM 0.5 MG Tab PO SCH (08:45)
[2017-03-29] MEDS: Ferrous Sulfate 325 MG Tab PO SCH (08:45)
[2017-03-29] MEDS: Pregabalin 25 MG Cap PO SCH (08:45)
[2017-03-29] MEDS: Pregabalin 75 MG Cap PO SCH (08:45)
[2017-03-29] MEDS: Propranolol 40 MG Tab PO SCH (08:45)
[2017-03-29] MEDS: HYDROmorphone 2 MG Tab PO SCH (08:45)
[2017-03-29] MEDS: Multivitamins,Therapeutic Tab PO SCH (08:45)
[2017-03-29] MEDS: Pantoprazole 40 MG Vial IVPUSH SCH (08:46)
--- NOTE | 2017-03-29 08:50 | PCM.DCSUM1 ---
Discharge Summary - Hospital Course Free Text/Narrative:: Patient is a 57-year-old woman who was admitted with hematemesis. She has a history of previous GI bleed for which she underwent EGD which was done by Dr. Randhawa. She was admitted to the ICU for volume resuscitation and Gen. surgery consult was requested. Patient was seen by Dr. Sim ngo who subsequently performed EGD with results showing inflammation as well as to esophageal varices with inflammation. There was no obvious bleeding sites noted. She subsequently received a total of 3 units of packed red blood cells with improvement in her hemoglobin and hematocrits. Current hemoglobin today is 10.2. She was started on propranolol 40 mg twice a day on admission because of the esophageal varices seen on EGD. She will be discharged on 10 mg 3 times daily PROPANOLOL AND HAS BEEN ADVISED TO MONITOR BLOOD PRESSURE REGULARLY SHE IS ON CLONIDINE AT BEDTIME WELL ENALAPRIL DAILY. SHE HAS BEEN ADVISED TO DISCONTINUE ENALAPRIL IF SYSTOLIC BLOOD PRESSURE GOES BELOW 90 MMHG. SHE WILL FOLLOW UP WITH HER PRIMARY CARE PHYSICIAN WITHIN ONE WEEK OF DISCHARGE AND HAS MADE AN APPOINTMENT WITH A CORE SHAPER POST DISCHARGE. SHE IS BEING DISCHARGED IN STABLE CONDITION. HPI Initial Comments: Today we have a 57yo female who presented to the ED with hematemesis x 3 that started at 7am this morning. These episodes produced more that 2 handfuls of bright red blood with no clots, and 1 melenic stool. She reports having had trouble sleeping last night due to what she thought was a stomach ache. She stated it felt like a "ball" in her stomach. She has pain/tenderness/ discomfort in her epigastric area, that she likens to a dull ache or gnawing. Right now this sensation is a 4/10 on pain scale, with no radiation. The pain is described as being pretty constant since onset this AM. She has a past history of upper GI bleed in September that resulted in a hospitalization at that time under Dr. Wood, where he performed an Upper and lower endoscopy with 3 areas that were cauterized at that time. She states that she does not take any NSAIDs or aspirin, but is on protonix ever since the hospitalization in September. She states that she has had a cholecystectomy. Pt is amenable to blood transfusion if the need arises; and is aware of the possible side effects from this. - Discharge Data Discharge Date: 03/29/17 Discharge Disposition: Home, Self-Care 01 Condition: Good - Discharge Diagnosis/Problem(s) (1) Gastrointestinal hemorrhage SNOMED Code(s): 14294522 ICD Code: K92.2 - GASTROINTESTINAL HEMORRHAGE, UNSPECIFIED Status: Acute Current Visit: Yes Qualifiers: GI bleed type/associated pathology: unspecified gastrointestinal hemorrhage type Qualified Code(s): K92.2 - Gastrointestinal hemorrhage, unspecified (2) Anemia SNOMED Code(s): 259120953 ICD Code: D64.9 - ANEMIA, UNSPECIFIED Status: Acute Current Visit: No Qualifiers: Anemia type: unspecified type Qualified Code(s): D64.9 - Anemia, unspecified - Patient Summary/Data Operative Procedure(s) Performed: EGD with bx Consults: Consultations 03/25/17 15:08 Consult to Case Management [CONS] Routine Consult to Gang Worker [CONS] Routine 03/25/17 15:59 Consult to Physician [CONS] Routine - Patient Instructions Diet: Heart Healthy Diet, Drink 8-10+ Glasses/Day, No Alcoholic Beverages Activity: As Tolerated - Discharge Plan Prescriptions/Med Rec: Propranolol [Inderal] 10 mg PO Q8H #90 tablet Home Medications: Home Meds ClonazePAM [KlonoPIN] 0.5 mg PO TID 04/18/14 [History] Pregabalin [Lyrica] 200 mg PO TID 04/18/14 [History] Levothyroxine 75 mcg PO DAILY 04/23/15 [History] HYDROmorphone [Dilaudid] 4 mg PO 09,21 05/08/16 [History] lamoTRIgine [Lamotrigine] 100 mg PO TID 05/09/16 [History] Ferrous Sulfate [Iron] 325 mg PO BID 11/24/16 [History] Multivitamin [Multivitamins] 1 cap PO DAILY 11/24/16 [History] Omeprazole Magnesium [Prilosec Otc] 40 mg PO BID 11/24/16 [History] Ondansetron [Zofran ODT] 4 mg PO Q8H PRN #10 tab.dis 11/24/16 [Rx] cloNIDine [Catapres] 0.2 mg PO BEDTIME 11/24/16 [History] Enalapril [Vasotec] 5 mg PO DAILY 03/25/17 [History] Sucralfate 1 gram PO QID 03/25/17 [History] Zolpidem [Ambien] 10 mg PO BEDTIME 03/25/17 [History] Propranolol [Inderal] 10 mg PO Q8H #90 tablet 03/29/17 [Rx] Patient Handouts: Hematemesis, Gastrointestinal Bleeding Referrals: Shakeel Randhawa MD [Consulting Physician] - (Dr. Randhawa's office will call you with appointment time. ) PCP,Unknown [Primary Care Provider] - (Make an appointment to see your primary care physician within one week of discharge.) - Discharge Summary/Plan Comment DC Time >30 min.: Yes - General Info Date of Service: 03/29/17 Admission Dx/Problem (Free Text: Hematemesis Subjective Update: Follow Up Patient seen and examined bedside with the nurse. Doing much better and denies any new problems. Functional Status: Reports: Pain Controlled, Tolerating Diet, Ambulating, Urinating. Denies: New Symptoms - Review of Systems General: Reports: No Symptoms HEENT: Reports: No Symptoms Pulmonary: Reports: No Symptoms Cardiovascular: Reports: No Symptoms Gastrointestinal: Reports: No Symptoms Genitourinary: Reports: No Symptoms Musculoskeletal: Reports: No Symptoms Skin: Reports: No Symptoms Neurological: Reports: No Symptoms Psychiatric: Reports: No Symptoms - Patient Data Vitals - Most Recent: Last Vital Signs Temp 98.8 F 03/29/17 08:26 Pulse 53 L 03/29/17 08:26 Resp 16 03/29/17 08:26 BP 118/61 03/29/17 08:26 Pulse Ox 91 L 03/29/17 08:26 Weight - Most Recent: 112.491 kg I&O - Last 24 hours: Intake & Output 03/28/17 03/29/17 03/29/17 22:59 06:59 14:59 Intake Total 1840 1300 Output Total 1600 1700 Balance 240 -400 Lab Results - Last 24 hrs: Laboratory Results - last 24 hr 03/28/17 03/29/17 03/29/17 Range/Units 06:12 07:00 07:00 Hgb 10.2 L (11.2-15.7) gm/L Sodium 144 (136-145) mEq/L Potassium 3.5 (3.5-5.1) mEq/L Chloride 109 H (98-107) mEq/L Carbon Dioxide 25 (21-32) mEq/L Anion Gap 13.5 (5-15) BUN 10 (7-18) mg/dL Creatinine 0.6 (0.55-1.02) mg/dL Est Cr Clr Drug Dosing 110.52 mL/min Estimated GFR (MDRD) > 60 (>60) mL/min BUN/Creatinine Ratio 16.7 (14-18) Glucose 103 (74-106) mg/dL Calcium 8.4 L (8.5-10.1) mg/dL Phosphorus 3.4 (2.6-4.7) mg/dL Magnesium 1.9 (1.8-2.4) mg/dl Med Orders - Current: Current Medications Acetaminophen (Tylenol) 650 mg PO Q4H PRN PRN Reason: Pain (Mild 1-3)/fever Hydrocodone Bitart/Acetaminophen ([place] 325-5 Mg) 1 tab PO Q4H PRN PRN Reason: Pain (moderate 4-6) Albuterol/Ipratropium (Duoneb 3.0-0.5 Mg/3 Ml) 3 ml NEB Q4H PRN PRN Reason: Shortness Of Breath/wheezing Bisacodyl (Dulcolax) 5 mg PO DAILY PRN PRN Reason: Constipation Clonazepam (Klonopin) 0.5 mg PO TID [facility] Last Admin: 03/28/17 20:53 Dose: 0.5 mg Diphenhydramine HCl (Benadryl) 25 mg PO DAILY [facility] Last Admin: 03/28/17 10:02 Dose: 25 mg Docusate Sodium (Colace) 100 mg PO BID PRN PRN Reason: Constipation Ferrous Sulfate (Ferrous Sulfate) 325 mg PO BID [facility] Last Admin: 03/28/17 20:53 Dose: 325 mg Hydromorphone HCl (Dilaudid) 0.25 mg IVPUSH Q2H PRN PRN Reason: Pain (severe 7-10) Last Admin: 03/28/17 23:53 Dose: 0.25 mg Hydromorphone HCl (Dilaudid) 4 mg PO 09,21 [facility] Last Admin: 03/28/17 20:52 Dose: 4 mg Promethazine HCl 12.5 mg/ (Sodium Chloride) 50.5 mls @ 100 mls/hr IV Q6H PRN PRN Reason: Nausea/Vomiting Lamotrigine (Lamotrigine) 100 mg PO TID [facility] Last Admin: 03/28/17 20:43 Dose: 100 mg Levothyroxine Sodium (Levothyroxine) 75 mcg PO ACBREAKFAST [facility] Last Admin: 03/29/17 06:19 Dose: 75 mcg Lorazepam (Ativan) 1 mg IV Q6H PRN PRN Reason: Anxiety Last Admin: 03/29/17 00:28 Dose: 1 mg Lorazepam (Ativan) 2 mg IVPUSH Q4H PRN PRN Reason: Seizures Magnesium Sulfate (Pharmacy To Dose - Magnesium Replacement) 1 dose .XX ASDIRECTED [facility] Multivitamins (Thera) 1 each PO DAILY [facility] Last Admin: 03/28/17 10:02 Dose: 1 each Ondansetron HCl (Zofran) 4 mg IV Q6H PRN PRN Reason: Nausea/Vomiting Last Admin: 03/25/17 18:00 Dose: 4 mg Pantoprazole Sodium (Protonix Iv) 40 mg IVPUSH Q12H [facility] Last Admin: 03/28/17 20:45 Dose: 40 mg Polyethylene Glycol (Miralax) 17 gm PO DAILY PRN PRN Reason: Constipation Potassium Chloride (Pharmacy To Dose - Potassium Replacement) 1 dose .XX ASDIRECTED [facility] Pregabalin (Lyrica) 150 mg PO TID [facility] Last Admin: 03/28/17 20:43 Dose: 150 mg Pregabalin (Lyrica) 50 mg PO TID [facility] Last Admin: 03/28/17 20:44 Dose: 50 mg Propranolol HCl (Inderal) 40 mg PO BID [facility] Last Admin: 03/28/17 20:43 Dose: 40 mg Senna/Docusate Sodium (Senna Plus) 1 tab PO BID PRN PRN Reason: Constipation Sodium Chloride (Saline Flush) 10 ml FLUSH ASDIRECTED PRN PRN Reason: Keep Vein Open Last Admin: 03/27/17 00:40 Dose: 10 ml Temazepam (Restoril) 15 mg PO BEDTIME PRN PRN Reason: Sleep Zolpidem Tartrate (Ambien) 10 mg PO BEDTIME [facility] Last Admin: 03/28/17 20:53 Dose: 10 mg Discontinued Medications Clonazepam (Klonopin) 0.5 mg PO TID PRN PRN Reason: Anxiety Last Admin: 03/25/17 17:35 Dose: 0.5 mg Clonidine HCl (Catapres) 0.2 mg PO BEDTIME [facility] Last Admin: 03/26/17 20:18 Dose: 0.2 mg Diphenhydramine HCl (Benadryl) 25 mg PO ONETIME ONE Stop: 03/28/17 16:02 Last Admin: 03/28/17 16:19 Dose: 25 mg Diphtheria/Tetanus/Acell Pertussis (Adacel) 0.5 ml IM .ONCE ONE Stop: 03/25/17 15:26 Enalapril Maleate (Vasotec) 5 mg PO DAILY [facility] Last Admin: 03/27/17 09:02 Dose: Not Given Fentanyl (Sublimaze) Confirm Administered Dose 100 mcg .ROUTE .STK-MED ONE Stop: 03/26/17 10:13 Hydralazine HCl (Apresoline) 20 mg IVPUSH Q4H PRN PRN Reason: Hypertension Hydromorphone HCl (Dilaudid) 0.5 mg IVPUSH ONETIME ONE Stop: 03/25/17 12:46 Last Admin: 03/25/17 12:50 Dose: 0.5 mg Hydromorphone HCl (Dilaudid) 0.5 mg IVPUSH ONETIME ONE Stop: 03/25/17 14:01 Last Admin: 03/25/17 14:07 Dose: 0.5 mg Dextrose/Sodium Chloride (Dextrose 5%-Normal Saline) 1,000 mls @ 250 mls/hr IV ASDIRECTED [facility] Last Admin: 03/25/17 12:05 Dose: 250 mls/hr Pantoprazole Sodium 80 mg/ (Sodium Chloride) 100 mls @ 10 mls/hr IV Q10H [facility] Last Admin: 03/26/17 15:24 Dose: Not Given Sodium Chloride (Normal Saline) 1,000 mls @ 500 mls/hr IV ONETIME ONE Stop: 03/25/17 13:43 Last Admin: 03/25/17 11:51 Dose: 500 mls/hr Sodium Chloride (Normal Saline) 1,000 mls @ 125 mls/hr IV ASDIRECTED [facility] Last Admin: 03/26/17 05:37 Dose: 125 mls/hr Lidocaine HCl (Xylocaine-Mpf 1%) Confirm Administered Dose 4 mls @ as directed .ROUTE .STK-[facility] ONE Stop: 03/26/17 10:13 Lidocaine HCl (Xylocaine-Mpf 1%) Confirm Administered Dose 4 mls @ as directed .ROUTE .ST-MED ONE Stop: 03/26/17 11:28 Sodium Chloride (Normal Saline) 1,000 mls @ 30 mls/hr IV ONETIME ONE Stop: 03/28/17 17:35 Last Admin: 03/27/17 08:50 Dose: 30 mls/hr Sodium Chloride (Normal Saline) Confirm Administered Dose 1,000 mls @ as directed .ROUTE .ST-MED ONE Stop: 03/27/17 08:15 Last Admin: 03/27/17 08:46 Dose: Not Given Sodium Chloride (Normal Saline) 1,000 mls @ 999 mls/hr IV ONETIME ONE Stop: 03/27/17 16:00 Last Admin: 03/27/17 14:59 Dose: 999 mls/hr Sodium Ferric Gluconat/Sucrose (125 mg/ Sodium Chloride) 110 mls @ 110 mls/hr IV ONETIME ONE Stop: 03/27/17 19:14 Last Admin: 03/28/17 01:28 Dose: Not Given Sodium Ferric Gluconat/Sucrose (125 mg/ Sodium Chloride) 110 mls @ 110 mls/hr IV ONETIME ONE Stop: 03/28/17 09:29 Last Admin: 03/28/17 11:53 Dose: Not Given Sodium Chloride (Normal Saline) 250 mls @ 30 mls/hr IV ASDIRECTED [facility]ISA Stop: 03/28/17 04:00 Magnesium Oxide (Magnesium Oxide) 400 mg PO ONETIME ONE Stop: 03/26/17 07:31 Last Admin: 03/26/17 15:11 Dose: 400 mg Magnesium Oxide (Magnesium Oxide) 400 mg PO ONETIME ONE Stop: 03/26/17 14:46 Last Admin: 03/26/17 15:12 Dose: Not Given Magnesium Oxide (Magnesium Oxide) 400 mg PO ONETIME ONE Stop: 03/27/17 08:01 Last Admin: 03/27/17 08:49 Dose: 400 mg Magnesium Oxide (Magnesium Oxide) 400 mg PO ONETIME ONE Stop: 03/28/17 08:01 Last Admin: 03/28/17 10:02 Dose: 400 mg Ondansetron HCl (Zofran) 4 mg IVPUSH ONETIME ONE Stop: 03/25/17 12:46 Last Admin: 03/25/17 12:48 Dose: 4 mg Pantoprazole Sodium (Protonix Iv) 80 mg IVPUSH .BOLUS ONE Stop: 03/25/17 11:46 Last Admin: 03/25/17 11:59 Dose: 80 mg Potassium Chloride (Klor-Con M20) 40 meq PO ONETIME ONE Stop: 03/27/17 08:01 Last Admin: 03/27/17 08:50 Dose: 40 meq Potassium Chloride (Klor-Con M20) 40 meq PO Q4H [facility]ISA Stop: 03/28/17 12:01 Last Admin: 03/28/17 12:49 Dose: 40 meq Propofol (Diprivan 20 Ml) Confirm Administered Dose 200 mg .ROUTE .STK-MED ONE Stop: 03/26/17 10:13 Propofol (Diprivan 20 Ml) Confirm Administered Dose 200 mg .ROUTE .STK-MED ONE Stop: 03/26/17 11:28 Sucralfate (Carafate) 1 gm PO QIDACANDBED [facility] Last Admin: 03/26/17 17:24 Dose: Not Given - Exam General: Reports: Alert, Oriented HEENT: Reports: Pupils Equal, Pupils Reactive, EOMI, Mucous Membr. Moist/[place] Neck: Reports: Supple Lungs: Reports: Clear to Auscultation, Normal Respiratory Effort Cardiovascular: Reports: Regular Rate, Regular Rhythm GI/Abdominal Exam: Normal Bowel Sounds, Soft, Non-Tender, No Organomegaly, No Distention, No Abnormal Bruit, No Mass, Pelvis Stable (Female) Exam: Deferred Rectal (Female) Exam: Deferred Back Exam: Reports: Normal Inspection, Full Range of Motion Extremities: Normal Inspection, Normal Range of Motion, Non-Tender, No Pedal Edema, Normal Capillary Refill Skin: Reports: Warm, Dry, Intact Neurological: Reports: No New Focal Deficit Psy/Mental Status: Reports: Alert, Normal Affect, Normal Mood Discharge Operative/Procedures - Procedures Performed Operations: EGD *Q Meaningful Use (DIS) - VTE *Q VTE Criteria *Q: VTE Mechanical Contraindications *Q: Further Opinion Sought VTE Pharmacological Contraindications *Q: Active Hemorrhage VTE Anticoagulation Contraindications: Alternative [place] Request PT - Stroke *Q Stroke Criteria *Q: Aspirin Contraindications Stroke *Q: Other (Use Special Inst) Anticoagulation Contraindications Stroke *Q: Alternative [place] Request PT Antithrombotic Contraindications Stroke *Q: Alternative [place] Request PT Statin Contraindications Stroke *Q: Alternative [place] request PT Rehabilitation Assessment Contraindication *Q: Alternative tx request pt - AMI *Q AMI Criteria *Q: Aspirin Contraindications AMI *Q: Alternative [place] Request PT Statin Contraindications AMI *Q: Alternative [place] Request PT
[2017-03-29] MEDS ORDERED: Magnesium Oxide 400 MG Tab PO ONE (09:30)
[2017-03-29] MEDS ORDERED: Potassium Chloride 20 MEQ Tab.ER PO SCH (09:30)
[2017-03-29] MEDS ORDERED: Diphtheria,Pertussis(Acell),Tetanus Vaccine 0.5 ML SDV IM ONE (11:33)
[2017-03-29] MEDS ORDERED: FLU Vacc QS 2017-18 (6mos UP)/PF 60 MCG/0.5 ML Syringe IM ONE (11:33)
[2017-03-29 11:57] VITALS: BP 114/60
== END 2017-03-29 12:43 | disposition home or self-care (01) | DRG 370 ==
LOC: JD.ED 11:29 → JD.ICU 14:23 → UNDOADMIN 14:24 → JD.MS 03-27 18:58
PROVIDERS: ADMIT Internal Medicine; ATTEND Internal Medicine
PROC: 0DB68ZX Excision of Stomach, Via Natural or Artificial Opening Endoscopic, Diagnostic (ICD-10-PCS; principal; 2017-03-26)
PROC: 30233N1 Transfusion of Nonautologous Red Blood Cells into Peripheral Vein, Percutaneous Approach (ICD-10-PCS; 2017-03-27)
DX: K92.2 Gastrointestinal hemorrhage, unspecified (principal); I85.00 Esophageal varices without bleeding; I95.9 Hypotension, unspecified; E03.9 Hypothyroidism, unspecified; I10 Essential (primary) hypertension; M79.7 Fibromyalgia; G89.29 Other chronic pain; F41.9 Anxiety disorder, unspecified; Z85.118 Personal history of other malignant neoplasm of bronchus and lung; Z87.891 Personal history of nicotine dependence; H54.7 Unspecified visual loss; F39 Unspecified mood [affective] disorder; Z88.0 Allergy status to penicillin; Z88.2 Allergy status to sulfonamides; Z79.899 Other long term (current) drug therapy; Z86.010 Personal history of colon polyps; D50.0 Iron deficiency anemia secondary to blood loss (chronic); Z23 Encounter for immunization
CPT/HCPCS: 00740; 36415; 36430; 76705; 76705-26; 80048; 80053; 83690; 83735; 84100; 85014; 85018; 85025; 85027; 85610; 85730; 86677; 86850; 86900; 86901; 86922; 88305; 90686; 90715; 93005; 96361; 96365; 96366; 96374; 96375; 96376; 99285; 99285-25; A9270-GY; C9113; G0008; G0010; J1170; J2060; J2405; J2704; J3010; J7030; J7040; J7042; J7050; P9016

== ENCOUNTER 2017-05-02 09:51 | Emergency (ER) | payer MEDICARE, MEDICAID ==
[2017-05-02 10:03] VITALS: BP 155/81
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
[2017-05-02] MEDS ORDERED: Dextrose 5%-0.9% NaCl 1,000 ML IV SCH (11:30)
--- NOTE | 2017-05-02 12:26 | CR ---
Chest: Frontal view of the chest was obtained. Comparison: Prior chest x-ray of 10/15/16. Parenchymal density is noted within the left upper chest. This appears similar to previous exam. Right sided infusion port is seen. Slight scarring above the left hemidiaphragm is seen. Right lung is clear. Previous surgery is noted within the left chest. Impression: 1. Previous left-sided surgery. Infusion port. 2. Stable findings within the left chest from prior chest x-ray. 3. Right lung is clear. Diagnostic code #3
[2017-05-02] MEDS ORDERED: Azithromycin 250 MG Tab PO ONE (12:55)
== END 2017-05-02 13:30 | disposition home or self-care (01) ==
LOC: JD.ED 09:51
DX: J40 Bronchitis, not specified as acute or chronic (principal); J06.9 Acute upper respiratory infection, unspecified; J32.9 Chronic sinusitis, unspecified; F41.9 Anxiety disorder, unspecified; E03.9 Hypothyroidism, unspecified; Z86.2 Personal history of diseases of the blood and blood-forming organs and certain disorders involving the immune mechanism; Z87.891 Personal history of nicotine dependence; Z79.2 Long term (current) use of antibiotics; Z79.899 Other long term (current) drug therapy; Z88.0 Allergy status to penicillin; Z88.2 Allergy status to sulfonamides; Z91.040 Latex allergy status
CPT/HCPCS: 36415; 71010; 80053; 81001; 83735; 83880; 84484; 85025; 86140; 87040; 87804; 93005; 96360; 96361; 99284; A9270; J7042; 93010

== ENCOUNTER 2017-06-12 05:18 | Inpatient (IN) | payer MEDICARE, MEDICAID ==
[2017-06-12] MEDS ORDERED: Albuterol/Ipratropium 3.0-0.5 MG/3 ML Neb Soln NEB ONE (05:24)
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
[2017-06-12] MEDS ORDERED: Dextrose 5%-0.9% NaCl 1,000 ML IV SCH (05:30)
[2017-06-12] MEDS ORDERED: Albuterol/Ipratropium 3.0-0.5 MG/3 ML Neb Soln ONE (05:32)
[2017-06-12] MEDS ORDERED: HYDROmorphone 1 MG/ML Syringe IVPUSH ONE (06:22)
[2017-06-12] MEDS ORDERED: Levofloxacin/Dextrose 5%-Water 750 MG in Premix Bag 1 BAG IV ONE (06:23)
[2017-06-12] MEDS ORDERED: Temazepam 7.5 MG Cap PO PRN (09:17)
[2017-06-12] MEDS ORDERED: Ondansetron 4 MG Tab.DIS PO PRN (09:17)
[2017-06-12] MEDS ORDERED: Magnesium Hydroxide 400 MG/5 ML Susp 30 ML Cup PO PRN (09:17)
[2017-06-12] MEDS ORDERED: Ondansetron 4 MG/2 ML SDV IV PRN (09:17)
[2017-06-12] MEDS ORDERED: Albuterol 0.083% 2.5 MG/3 ML Neb Soln NEB PRN (09:17)
[2017-06-12] MEDS ORDERED: Acetaminophen/HYDROcodone 325-5 MG Tab PO PRN (09:17)
[2017-06-12] MEDS ORDERED: Docusate Sodium 100 MG Cap PO PRN (09:17)
[2017-06-12] MEDS ORDERED: HYDROmorphone 1 MG/ML Syringe IVPUSH PRN ×2 (09:17→15:20)
[2017-06-12] MEDS ORDERED: Acetaminophen 325 MG Tab PO PRN (09:17)
[2017-06-12] MEDS: guaiFENesin 600 MG Tab.ER PO SCH ×2 (09:45→21:09)
[2017-06-12] MEDS: Sodium Chloride 0.9% 1,000 ML IV SCH ×2 (09:46→21:20)
[2017-06-12] MEDS ORDERED: Pantoprazole 40 MG Vial IV ONE (10:00)
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
[2017-06-12] MEDS: Albuterol/Ipratropium 3.0-0.5 MG/3 ML Neb Soln NEB SCH ×3 (11:15→21:42)
[2017-06-12] MEDS: HYDROmorphone 0.5 MG/0.5 ML Syringe IVPUSH PRN ×2 (11:39→14:51)
[2017-06-12] MEDS: Benzonatate 100 MG Cap PO SCH ×2 (14:15→21:09)
[2017-06-12] MEDS: HYDROmorphone 2 MG Tab PO SCH (15:30)
[2017-06-12] MEDS: ClonazePAM 0.5 MG Tab PO SCH ×2 (15:31→21:09)
[2017-06-12] MEDS: Pregabalin 75 MG Cap PO SCH ×2 (15:31→21:09)
[2017-06-12] MEDS: Pregabalin 25 MG Cap PO SCH ×2 (15:52→21:09)
[2017-06-12] MEDS: Benzocaine/Cetylpyridinium/Menthol Lozenge MUCMEM PRN ×2 (17:26→21:17)
[2017-06-12] MEDS: Zolpidem 10 MG Tab PO SCH (21:09)
[2017-06-12] MEDS: cloNIDine 0.1 MG Tab PO SCH (21:09)
[2017-06-12] MEDS: Ferrous Sulfate 325 MG Tab PO SCH (21:09)
[2017-06-12] MEDS: Codeine/guaiFENesin 100-10 MG/5 ML Syrup 5 ML Cup PO PRN (21:10)
[2017-06-13] MEDS: Levofloxacin/Dextrose 5%-Water 750 MG in Premix Bag 1 BAG IV SCH (06:12)
[2017-06-13] MEDS: Albuterol/Ipratropium 3.0-0.5 MG/3 ML Neb Soln NEB SCH (06:34)
--- NOTE | 2017-06-13 07:57 | PCM.PN ---
- General Info Date of Service: 06/13/17 Admission Dx/Problem (Free Text): Admission Diagnosis/Problem Admission Diagnosis/Problem Pneumonitis Subjective Update: In to see Zoila. She is lying in bed. He reports shortness of breath is improving. She does report some itching, which she has had on and off since childhood. Benadryl ordered. She also would like some Motrin for headache. This seems reasonable. Hemoglobin did drop slightly however she has been getting fluids and has a history of YESENIA. She was getting albuterol 4 times a day however she was jittery and had a headache. We'll switch to zolpidem. She appears responding to current treatment. No overnight issues. Sputum cultures ordered. Functional Status: Reports: Pain Controlled, Tolerating Diet, Ambulating, Urinating. Denies: New Symptoms - Review of Systems General: Reports: Weakness, Fatigue, Malaise, Chills. Denies: Fever, Night Sweats HEENT: Reports: No Symptoms. Denies: Ear Pain, Eye Pain, Sinus Congestion, Sore Throat, Visual Changes Pulmonary: Reports: Shortness of Breath, Cough, Sputum, Wheezing. Denies: Pleuritic Chest Pain Cardiovascular: Reports: Dyspnea on Exertion. Denies: Chest Pain, Palpitations , Lightheadedness Gastrointestinal: Reports: Constipation. Denies: Abdominal Pain, Diarrhea, Nausea, Vomiting Genitourinary: Reports: No Symptoms. Denies: Dysuria, Frequency, Burning, Pain , Urgency Musculoskeletal: Reports: Other (generalized muscle pain ) Skin: Reports: Pruritis (generalized - benadryl ordered ). Denies: Cyanosis, Jaundice, Mottled, Pallor, Diaphoresis Neurological: Reports: Headache, Weakness. Denies: Confusion, Dizziness, Numbness, Tingling, Trouble Speaking, Difficulty Walking, Change in Speech Psychiatric: Reports: No Symptoms - Patient Data Vitals - Most Recent: Last Vital Signs Temp 98.6 F 06/13/17 00:17 Pulse 94 06/13/17 00:17 Resp 16 06/13/17 00:17 BP 121/62 06/13/17 00:17 Pulse Ox 93 L 06/13/17 06:34 Weight - Most Recent: 233 lb 4.8 oz I&O - Last 24 Hours: Intake & Output 06/12/17 06/13/17 06/13/17 22:59 06:59 14:59 Intake Total 7724 850 Output Total 750 500 Balance 999 350 Lab Results Last 24 Hours: Laboratory Results - last 24 hr 06/12/17 06/13/17 06/13/17 Range/Units 12:53 05:45 05:45 WBC 6.73 (3.98-10.04) K/mm3 RBC 3.11 L (3.98-5.22) M/mm3 Hgb 9.2 L (11.2-15.7) gm/L Hct 27.9 L (34.1-44.9) % MCV 89.7 (79.4-94.8) fl MCH 29.6 (25.6-32.2) pg MCHC 33.0 (32.2-35.5) g/dl RDW Std Deviation 44.4 (36.4-46.3) fL Plt Count 68 L (182-369) K/mm3 MPV 10.2 (9.4-12.3) fl Neut % (Auto) 69.0 (34.0-71.1) % Lymph % (Auto) 22.9 (19.3-51.7) % [place] % (Auto) 7.4 (4.7-12.5) % Eos % (Auto) 0 L (0.7-5.8) Baso % (Auto) 0.4 (0.1-1.2) % Neut # (Auto) 4.64 (1.56-6.13) K/mm3 Lymph # (Auto) 1.54 (1.18-3.74) K/mm3 [place] # (Auto) 0.50 H (0.24-0.36) K/mm3 Eos # (Auto) 0.00 L (0.04-0.36) K/mm3 Baso # (Auto) 0.03 (0.01-0.08) K/mm3 Sodium 143 (136-145) mEq/L Potassium 3.6 (3.5-5.1) mEq/L Chloride 110 H (98-107) mEq/L Carbon Dioxide 23 (21-32) mEq/L Anion Gap 13.6 (5-15) BUN 23 H (7-18) mg/dL Creatinine 0.7 (0.55-1.02) mg/dL Est Cr Clr Drug Dosing 91.55 mL/min Estimated GFR (MDRD) > 60 (>60) mL/min BUN/Creatinine Ratio 32.9 H (14-18) Glucose 126 H (74-106) mg/dL Calcium 8.3 L (8.5-10.1) mg/dL Magnesium 1.6 L (1.8-2.4) mg/dl C-Reactive Protein < 0.2 (<1.0) mg/dL Urine Color Yellow (Yellow) Urine Appearance Clear (Clear) Urine pH 6.0 (5.0-8.0) Ur Specific [place] 1.020 (1.005-1.030) Urine Protein Negative (Negative) Urine Glucose (UA) Negative (Negative) Urine Ketones Negative (Negative) Urine Occult Blood Negative (Negative) Urine Nitrite Negative (Negative) Urine Bilirubin Negative (Negative) Urine Urobilinogen 0.2 (0.2-1.0) Ur Leukocyte Esterase Negative (Negative) Med Orders - Current: Current Medications Acetaminophen (Tylenol) 650 mg PO Q4H PRN PRN Reason: Pain (Mild 1-3)/fever Hydrocodone Bitart/Acetaminophen ([place] 325-5 Mg) 1 tab PO Q4H PRN PRN Reason: Pain (moderate 4-6) Albuterol (Proventil Neb Soln) 2.5 mg NEB Q2H PRN PRN Reason: Shortness Of Breath/wheezing Albuterol/Ipratropium (Duoneb 3.0-0.5 Mg/3 Ml) 3 ml NEB QIDRT [facility] Last Admin: 06/13/17 06:34 Dose: 3 ml Benzocaine/Menthol (Cepacol Sore Throat) 1 lozenge MUCMEM Q2HR PRN PRN Reason: Sore Throat Last Admin: 06/12/17 21:17 Dose: 1 lozenge Benzonatate (Tessalon Perles) 100 mg PO TID [facility] Last Admin: 06/12/17 21:09 Dose: 100 mg Clonazepam (Klonopin) 0.5 mg PO TID [facility] Last Admin: 06/12/17 21:09 Dose: 0.5 mg Clonidine HCl (Catapres) 0.2 mg PO BEDTIME [facility] Last Admin: 06/12/17 21:09 Dose: 0.2 mg Docusate Sodium (Colace) 100 mg PO BID PRN PRN Reason: Constipation Enalapril Maleate (Vasotec) 2.5 mg PO DAILY [facility] Ferrous Sulfate (Ferrous Sulfate) 325 mg PO BID [facility] Last Admin: 06/12/17 21:09 Dose: 325 mg Guaifenesin (Mucinex) 1,200 mg PO BID [facility] Last Admin: 06/12/17 21:09 Dose: 1,200 mg Guaifenesin/Codeine Phosphate (Robitussin Ac) 5 ml PO Q6H PRN PRN Reason: Cough Last Admin: 06/12/17 21:10 Dose: 5 ml Hydromorphone HCl (Dilaudid) 4 mg PO ,16 [facility] Last Admin: 06/12/17 15:30 Dose: 4 mg Hydromorphone HCl (Dilaudid) 1 mg IVPUSH Q3H PRN PRN Reason: Pain Sodium Chloride (Normal Saline) 1,000 mls @ 100 mls/hr IV ASDIRECTED [facility] Last Admin: 06/12/17 21:20 Dose: 100 mls/hr Levofloxacin/Dextrose 750 mg/ (Premix) 150 mls @ 100 mls/hr IV Q24H [facility] Last Admin: 06/13/17 06:12 Dose: 100 mls/hr Levothyroxine Sodium (Levothyroxine) 75 mcg PO DAILY [facility] Magnesium Hydroxide (Milk Of Magnesia) 30 ml PO Q12H PRN PRN Reason: Constipation Multivitamins (Thera) 1 each PO DAILY [facility] Ondansetron HCl (Zofran Odt) 4 mg PO Q4H PRN PRN Reason: nausea, able to take PO Ondansetron HCl (Zofran) 4 mg IV Q4H PRN PRN Reason: Nausea/Vomiting Last Admin: 06/12/17 10:50 Dose: 4 mg Pregabalin (Lyrica) 150 mg PO TID [facility] Last Admin: 06/12/17 21:09 Dose: 150 mg Pregabalin (Lyrica) 50 mg PO TID [facility] Last Admin: 06/12/17 21:09 Dose: 50 mg Temazepam (Restoril) 7.5 mg PO BEDTIME PRN PRN Reason: Sleep Zolpidem Tartrate (Ambien) 10 mg PO BEDTIME [facility] Last Admin: 06/12/17 21:09 Dose: 10 mg Discontinued Medications Albuterol/Ipratropium (Duoneb 3.0-0.5 Mg/3 Ml) 3 ml NEB ONETIME ONE Stop: 06/12/17 05:25 Last Admin: 06/12/17 05:30 Dose: 3 ml Albuterol/Ipratropium (Duoneb 3.0-0.5 Mg/3 Ml) Confirm Administered Dose 3 ml .ROUTE .STK-MED ONE Stop: 06/12/17 05:33 Last Admin: 06/12/17 05:37 Dose: Not Given Hydromorphone HCl (Dilaudid) 2 mg IVPUSH ONETIME ONE Stop: 06/12/17 06:23 Last Admin: 06/12/17 06:39 Dose: 2 mg Hydromorphone HCl (Dilaudid) 0.25 mg IVPUSH Q2H PRN PRN Reason: Pain (severe 7-10) Hydromorphone HCl (Dilaudid) 0.25 mg IVPUSH Q2H PRN PRN Reason: Pain (severe 7-10) Last Admin: 06/12/17 14:51 Dose: 0.25 mg Dextrose/Sodium Chloride (Dextrose 5%-Normal Saline) 1,000 mls @ 999 mls/hr IV ASDIRECTED [facility] Last Admin: 06/12/17 05:35 Dose: 150 mls/hr Levofloxacin/Dextrose 750 mg/ (Premix) 150 mls @ 100 mls/hr IV ONETIME ONE Stop: 06/12/17 07:52 Last Admin: 06/12/17 06:39 Dose: 100 mls/hr Pantoprazole Sodium (Protonix Iv) 40 mg IV ONETIME ONE Stop: 06/12/17 10:01 Last Admin: 06/12/17 09:46 Dose: 40 mg - Exam Quality Assessment: Supplemental Oxygen, DVT Prophylaxis General: Alert, Oriented, Cooperative, No Acute Distress HEENT: Pupils Equal, Pupils Reactive, EOMI, Mucous Membr. Moist/[place] Neck: Supple, Trachea Midline, No JVD, No Thyromegaly Lungs: Normal Respiratory Effort, Decreased Breath Sounds, Rhonchi, Wheezing Cardiovascular: Regular Rate, Regular Rhythm, No Murmurs GI/Abdominal Exam: Normal Bowel Sounds, Soft, Non-Tender, No Organomegaly, No Distention, No Abnormal Bruit, No Mass, Pelvis Stable (Female) Exam: Deferred Back Exam: Normal Inspection, Full Range of Motion Extremities: Normal Inspection, Normal Range of Motion, Non-Tender, No Pedal Edema, Normal Capillary Refill Peripheral Pulses: 2+: Radial (L), Radial (R), Posterior Tibial (L), Posterior Tibial (R), Dorsalis Pedis (L), Dorsalis Pedis (R) Skin: Warm, Dry, Intact Neurological: No New Focal Deficit Psy/Mental Status: Alert, Normal Affect, Normal Mood - Problem List & Annotations (1) Hypoxemia SNOMED Code(s): 528890880 Code(s): R09.02 - HYPOXEMIA Status: Acute Priority: High Current Visit : Yes (2) Intravascular volume depletion SNOMED Code(s): 88638442 Code(s): E86.1 - HYPOVOLEMIA Status: Acute Priority: High Current Visit : Yes (3) Leukocytosis SNOMED Code(s): 356198612 Code(s): D72.829 - ELEVATED WHITE BLOOD CELL COUNT, UNSPECIFIED Status: Resolved Priority: High Current Visit: Yes Qualifiers: Leukocytosis type: bandemia Qualified Code(s): D72.825 - Bandemia (4) Pneumonitis SNOMED Code(s): 686517112 Code(s): J18.9 - PNEUMONIA, UNSPECIFIED ORGANISM Status: Acute Priority: High Current Visit: Yes (5) Tachycardia SNOMED Code(s): 2695139 Code(s): R00.0 - TACHYCARDIA, UNSPECIFIED Status: Resolved Priority: High Current Visit: Yes (6) Headache SNOMED Code(s): 27743097 Code(s): R51 - HEADACHE Status: Acute Priority: Medium Current Visit: Yes Qualifiers: Headache type: unspecified Headache chronicity pattern: acute headache Intractability: not intractable Qualified Code(s): R51 - Headache - Problem List Review Problem List Initiated/Reviewed/Updated: Yes - Plan Plan:: I/P: Pneumonitis with mild hypoxia: Likely early evolving Lt sided pneumonia -cough with prod yellow sputum x 12 days, was seen at clinic yesterday rx'd doxycycline- took one tab -S/P lung resection to lt side s/p CA with chemotherapy tx- 3 years ago -IV levaquin given in ED, cont on admission -Mucinex, tessalon perles, cough syrup -RT/IS/FV, nebs- duoneb QID with albuterol PRN - switched to zolpidem as patient has been jittery and had a headache. -Repeat CXR - Chronic changes, nothing acute -d.dimer negative -Negative cardiac workup -Negative mycoplasma and flu, obtain s.pneumo Dehydration- mild, improving -NS TRA 100cc/hr; bolus rec'd in ED -AG 17.8, tachycardic, mild hypotensive; no LA obtained in ED, afebrile- doubt sepsis. Headache -Motrin -Monitor -Switched neb to zolpidem as patient feels this may be cause of headache. Resolved: Leukocytosis with bandemia -Etiology likely pneumonitis/pneumonia; tx plan as above -Cont with daily am labs Chronic: Hx lung cancer, s/p lung resection with chemo tx 3 years ago Anemia- cont ferrous sulfate Acute on chronic back pain--continue home meds for chronic pain Other: GI prohylax DVT prophylax-SCD's PT/OT for generalized weakness RT tx as above Follow daily am labs Continue home meds O2 if needed to keep sats >90% Benadryl as needed for pruritus PCP is TETO Campbell Patient is Full Code status
--- NOTE | 2017-06-13 08:34 | CR ---
Chest: 2 views of the chest were obtained. Comparison: Prior chest x-ray of 06/12/17 Parenchymal density noted within the left upper chest. This appears more prominent than on most recent study which is likely projectional. This finding is fairly stable to prior chest x-ray of 10/15/16. Other chronic change is otherwise seen within the left chest from prior surgery which is stable. Right sided infusion catheter is seen. Intramedullary terry within the right upper arm. Bony structures show nothing acute. Impression: 1. Chronic changes within the left chest as described above. Nothing acute is appreciated. Diagnostic code #2
[2017-06-13] MEDS: Multivitamins,Therapeutic Tab PO SCH (09:03)
[2017-06-13] MEDS: guaiFENesin 600 MG Tab.ER PO SCH ×2 (09:03→20:05)
[2017-06-13] MEDS: Pregabalin 75 MG Cap PO SCH ×3 (09:03→20:06)
[2017-06-13] MEDS: HYDROmorphone 2 MG Tab PO SCH ×2 (09:03→17:03)
[2017-06-13] MEDS: Pregabalin 25 MG Cap PO SCH ×3 (09:03→20:04)
[2017-06-13] MEDS: Levothyroxine 75 MCG Tab PO SCH (09:04)
[2017-06-13] MEDS: Ferrous Sulfate 325 MG Tab PO SCH ×2 (09:04→20:05)
[2017-06-13] MEDS: Benzonatate 100 MG Cap PO SCH ×3 (09:04→20:05)
[2017-06-13] MEDS: ClonazePAM 0.5 MG Tab PO SCH ×3 (09:04→20:09)
--- NOTE | 2017-06-13 09:42 | CR ---
Chest: Portable view of the chest was obtained. Comparison: Prior chest x-ray of 05/02/17. Chronic change is seen within the left chest with evidence of prior surgery. Right-sided infusion port is seen. Nothing acute is seen within either lung. Heart size is not enlarged. Bony structures are grossly intact. Intramedullary terry is partially seen within the right humerus. Impression: 1. Chronic change as noted above. Nothing acute is appreciated. Diagnostic code #2 MTDD
[2017-06-13] MEDS: Levalbuterol HCl 1.25 MG/3 ML Neb NEB SCH ×4 (10:12→21:27)
[2017-06-13] MEDS: diphenhydrAMINE 50 MG/ML SDV IVPUSH PRN ×2 (12:39→20:02)
[2017-06-13] MEDS: Ibuprofen 800 MG Tab PO PRN (12:40)
[2017-06-13] MEDS: Potassium Chloride 20 MEQ Tab.ER PO SCH ×2 (12:41→17:02)
[2017-06-13] MEDS ORDERED: Magnesium Sulfate/Water 2 GM in Premix Bag 1 BAG IV ONE (14:30)
[2017-06-13] MEDS: Benzocaine/Cetylpyridinium/Menthol Lozenge MUCMEM PRN (17:02)
[2017-06-13] MEDS: Codeine/guaiFENesin 100-10 MG/5 ML Syrup 5 ML Cup PO PRN (17:02)
[2017-06-13] MEDS: Zolpidem 10 MG Tab PO SCH (20:05)
[2017-06-13] MEDS: cloNIDine 0.1 MG Tab PO SCH (20:14)
[2017-06-13] MEDS ORDERED: Hydrocortisone 1% Crm 30 GM Tube TOP PRN (21:31)
[2017-06-13] MEDS ORDERED: diphenhydrAMINE 50 MG/ML SDV IVPUSH ONE (21:32)
[2017-06-14] MEDS: Levofloxacin/Dextrose 5%-Water 750 MG in Premix Bag 1 BAG IV SCH (06:14)
[2017-06-14] MEDS ORDERED: methylPREDNISolone Sodium Succinate 40 MG/1 ML SDV IVPUSH ONE (06:36)
--- NOTE | 2017-06-14 06:37 | PCM.PN ---
- General Info Date of Service: 06/14/17 Admission Dx/Problem (Free Text): Admission Diagnosis/Problem Admission Diagnosis/Problem Pneumonitis Subjective Update: Follow Up Functional Status: Reports: Pain Controlled, Tolerating Diet, Ambulating, Urinating, New Symptoms - Review of Systems General: Denies: Fever, Chills HEENT: Reports: No Symptoms Pulmonary: Denies: Shortness of Breath Cardiovascular: Denies: Chest Pain Gastrointestinal: Denies: Abdominal Pain, Nausea, Vomiting Genitourinary: Reports: No Symptoms Musculoskeletal: Reports: No Symptoms Skin: Reports: Pruritis. Denies: Cyanosis, Mottled, Pallor, Diaphoresis Neurological: Denies: Confusion, Difficulty Walking, Weakness, Gait Disturbance Psychiatric: Reports: Agitation. Denies: Depression, Anxiety, Hallucinations Systems Review Comment:: Overnight she developed itching. She was given benadryl and cortisone cream. Those seemed to have helped but when her levaquin was started her itching recurred. Her pruritis was associated with redness and excoriations. Her IV access line was intact. Otherwise she reports no new complaints. Her Hgb level was considerably low this am at 7.3. No reports of active GI bleed or melenic stools. - Patient Data Vitals - Most Recent: Last Vital Signs Temp 36.7 C 06/14/17 03:57 Pulse 78 06/14/17 03:57 Resp 16 06/14/17 03:57 BP 90/58 L 06/14/17 03:57 Pulse Ox 96 06/14/17 03:57 Weight - Most Recent: 105.823 kg I&O - Last 24 Hours: Intake & Output 06/13/17 06/13/17 06/14/17 14:59 22:59 06:59 Intake Total 1650 1100 Output Total 700 375 Balance 950 725 Lab Results Last 24 Hours: Laboratory Results - last 24 hr 06/13/17 06/13/17 Range/Units 05:45 05:45 WBC 6.73 (3.98-10.04) K/mm3 RBC 3.11 L (3.98-5.22) M/mm3 Hgb 9.2 L (11.2-15.7) gm/L Hct 27.9 L (34.1-44.9) % MCV 89.7 (79.4-94.8) fl MCH 29.6 (25.6-32.2) pg MCHC 33.0 (32.2-35.5) g/dl RDW Std Deviation 44.4 (36.4-46.3) fL Plt Count 68 L (182-369) K/mm3 MPV 10.2 (9.4-12.3) fl Neut % (Auto) 69.0 (34.0-71.1) % Lymph % (Auto) 22.9 (19.3-51.7) % [place] % (Auto) 7.4 (4.7-12.5) % Eos % (Auto) 0 L (0.7-5.8) Baso % (Auto) 0.4 (0.1-1.2) % Neut # (Auto) 4.64 (1.56-6.13) K/mm3 Lymph # (Auto) 1.54 (1.18-3.74) K/mm3 [place] # (Auto) 0.50 H (0.24-0.36) K/mm3 Eos # (Auto) 0.00 L (0.04-0.36) K/mm3 Baso # (Auto) 0.03 (0.01-0.08) K/mm3 Manual Slide Review Abnormal smear Sodium 143 (136-145) mEq/L Potassium 3.6 (3.5-5.1) mEq/L Chloride 110 H (98-107) mEq/L Carbon Dioxide 23 (21-32) mEq/L Anion Gap 13.6 (5-15) BUN 23 H (7-18) mg/dL Creatinine 0.7 (0.55-1.02) mg/dL Est Cr Clr Drug Dosing 91.55 mL/min Estimated GFR (MDRD) > 60 (>60) mL/min BUN/Creatinine Ratio 32.9 H (14-18) Glucose 126 H (74-106) mg/dL Calcium 8.3 L (8.5-10.1) mg/dL Magnesium 1.6 L (1.8-2.4) mg/dl C-Reactive Protein < 0.2 (<1.0) mg/dL Med Orders - Current: Current Medications Acetaminophen (Tylenol) 650 mg PO Q4H PRN PRN Reason: Pain (Mild 1-3)/fever Albuterol (Proventil Neb Soln) 2.5 mg NEB Q2H PRN PRN Reason: Shortness Of Breath/wheezing Benzocaine/Menthol (Cepacol Sore Throat) 1 lozenge MUCMEM Q2HR PRN PRN Reason: Sore Throat Last Admin: 06/13/17 17:02 Dose: 1 lozenge Benzonatate (Tessalon Perles) 100 mg PO TID [facility] Last Admin: 06/13/17 20:05 Dose: 100 mg Clonazepam (Klonopin) 0.5 mg PO TID [facility] Last Admin: 06/13/17 20:09 Dose: 0.5 mg Clonidine HCl (Catapres) 0.2 mg PO BEDTIME [facility] Last Admin: 06/13/17 20:14 Dose: 0.2 mg Diphenhydramine HCl (Benadryl) 25 mg IVPUSH Q6H PRN PRN Reason: Itching Last Admin: 06/13/17 20:02 Dose: 25 mg Docusate Sodium (Colace) 100 mg PO BID PRN PRN Reason: Constipation Enalapril Maleate (Vasotec) 2.5 mg PO DAILY [facility] Last Admin: 06/13/17 09:10 Dose: Not Given Ferrous Sulfate (Ferrous Sulfate) 325 mg PO BID [facility] Last Admin: 06/13/17 20:05 Dose: 325 mg Guaifenesin (Mucinex) 1,200 mg PO BID [facility] Last Admin: 06/13/17 20:05 Dose: 1,200 mg Guaifenesin/Codeine Phosphate (Robitussin Ac) 5 ml PO Q6H PRN PRN Reason: Cough Last Admin: 06/13/17 17:02 Dose: 5 ml Hydrocortisone (Hydrocortisone 1% Crm) 1 gm TOP Q6HR PRN PRN Reason: Itching Last Admin: 06/13/17 21:58 Dose: 1 dose Hydromorphone HCl (Dilaudid) 4 mg PO ,16 [facility] Last Admin: 06/13/17 17:03 Dose: 4 mg Hydromorphone HCl (Dilaudid) 1 mg IVPUSH Q3H PRN PRN Reason: Pain Levofloxacin/Dextrose 750 mg/ (Premix) 150 mls @ 100 mls/hr IV Q24H [facility] Last Admin: 06/14/17 06:14 Dose: 100 mls/hr Ibuprofen (Motrin) 800 mg PO Q6H PRN PRN Reason: headache Last Admin: 06/13/17 12:40 Dose: 800 mg Levalbuterol HCl (Xopenex) 1.25 mg NEB QIDRT [facility] Last Admin: 06/13/17 21:27 Dose: 1.25 mg Levothyroxine Sodium (Levothyroxine) 75 mcg PO DAILY [facility] Last Admin: 06/13/17 09:04 Dose: 75 mcg Magnesium Hydroxide (Milk Of Magnesia) 30 ml PO Q12H PRN PRN Reason: Constipation Last Admin: 06/13/17 09:05 Dose: 30 ml Magnesium Sulfate (Pharmacy To Dose - Magnesium Replacement) 0 dose .XX ASDIRECTED PRN PRN Reason: RX TO WATCH MAG LEVELS Multivitamins (Thera) 1 each PO DAILY [facility] Last Admin: 06/13/17 09:03 Dose: 1 each Ondansetron HCl (Zofran Odt) 4 mg PO Q4H PRN PRN Reason: nausea, able to take PO Ondansetron HCl (Zofran) 4 mg IV Q4H PRN PRN Reason: Nausea/Vomiting Last Admin: 06/12/17 10:50 Dose: 4 mg Potassium Chloride (Pharmacy To Dose - Potassium Replacement) 0 dose .XX ASDIRECTED PRN PRN Reason: RX TO WATCH K LEVELS Pregabalin (Lyrica) 150 mg PO TID [facility] Last Admin: 06/13/17 20:06 Dose: 150 mg Pregabalin (Lyrica) 50 mg PO TID [facility] Last Admin: 06/13/17 20:04 Dose: 50 mg Temazepam (Restoril) 7.5 mg PO BEDTIME PRN PRN Reason: Sleep Zolpidem Tartrate (Ambien) 10 mg PO BEDTIME [facility] Last Admin: 06/13/17 20:05 Dose: 10 mg Discontinued Medications Hydrocodone Bitart/Acetaminophen ([place] 325-5 Mg) 1 tab PO Q4H PRN PRN Reason: Pain (moderate 4-6) Albuterol/Ipratropium (Duoneb 3.0-0.5 Mg/3 Ml) 3 ml NEB ONETIME ONE Stop: 06/12/17 05:25 Last Admin: 06/12/17 05:30 Dose: 3 ml Albuterol/Ipratropium (Duoneb 3.0-0.5 Mg/3 Ml) Confirm Administered Dose 3 ml .ROUTE .STK-MED ONE Stop: 06/12/17 05:33 Last Admin: 06/12/17 05:37 Dose: Not Given Albuterol/Ipratropium (Duoneb 3.0-0.5 Mg/3 Ml) 3 ml NEB QIDRT [facility] Last Admin: 06/13/17 06:34 Dose: 3 ml Diphenhydramine HCl (Benadryl) 25 mg IVPUSH ONETIME ONE Stop: 06/13/17 21:33 Last Admin: 06/13/17 21:56 Dose: 25 mg Hydromorphone HCl (Dilaudid) 2 mg IVPUSH ONETIME ONE Stop: 06/12/17 06:23 Last Admin: 06/12/17 06:39 Dose: 2 mg Hydromorphone HCl (Dilaudid) 0.25 mg IVPUSH Q2H PRN PRN Reason: Pain (severe 7-10) Hydromorphone HCl (Dilaudid) 0.25 mg IVPUSH Q2H PRN PRN Reason: Pain (severe 7-10) Last Admin: 06/12/17 14:51 Dose: 0.25 mg Dextrose/Sodium Chloride (Dextrose 5%-Normal Saline) 1,000 mls @ 999 mls/hr IV ASDIRECTED [facility] Last Admin: 06/12/17 05:35 Dose: 150 mls/hr Levofloxacin/Dextrose 750 mg/ (Premix) 150 mls @ 100 mls/hr IV ONETIME ONE Stop: 06/12/17 07:52 Last Admin: 06/12/17 06:39 Dose: 100 mls/hr Sodium Chloride (Normal Saline) 1,000 mls @ 100 mls/hr IV ASDIRECTED [facility] Last Admin: 06/12/17 21:20 Dose: 100 mls/hr Magnesium Sulfate 2 gm/ Premix 50 mls @ 25 mls/hr IV ONETIME ONE Stop: 06/13/17 16:29 Last Admin: 06/13/17 14:51 Dose: 25 mls/hr Levalbuterol HCl (Xopenex) 1.25 mg NEB Q4HRRT [facility] Last Admin: 06/13/17 19:34 Dose: Not Given Pantoprazole Sodium (Protonix Iv) 40 mg IV ONETIME ONE Stop: 06/12/17 10:01 Last Admin: 06/12/17 09:46 Dose: 40 mg Potassium Chloride (Klor-Con M20) 40 meq PO Q4H [facility] Stop: 06/13/17 16:01 Last Admin: 06/13/17 17:02 Dose: 40 meq - Exam General: Alert, Oriented, Cooperative, No Acute Distress HEENT: Pupils Equal, Pupils Reactive, Mucous Membr. Moist/[place] Neck: Supple, Trachea Midline, No JVD Lungs: Normal Respiratory Effort, Decreased Breath Sounds (at the left base), Other Cardiovascular: Regular Rate, Regular Rhythm GI/Abdominal Exam: Normal Bowel Sounds, Soft, Non-Tender, No Organomegaly, No Distention, No Abnormal Bruit, No Mass (Female) Exam: Deferred Back Exam: Normal Inspection, Decreased Range of Motion Extremities: Normal Inspection, Normal Range of Motion, Non-Tender, No Pedal Edema, Normal Capillary Refill Peripheral Pulses: 2+: Dorsalis Pedis (L), Dorsalis Pedis (R) Skin: Warm, Dry, Intact Neurological: No New Focal Deficit Psy/Mental Status: Alert, Normal Mood. No: Normal Affect - Problem List Review Problem List Initiated/Reviewed/Updated: Yes - My Orders Last 24 Hours: My Active Orders 06/13/17 21:31 Hydrocortisone [Hydrocortisone 1% Crm] 1 gm TOP Q6HR PRN - Plan Plan:: I/P: Acute: Pneumonitis with mild hypoxia: Likely early evolving Lt sided pneumonia - Cough with prod yellow sputum x 12 days, was seen at clinic yesterday rx'd doxycycline- took one tab - S/P lung resection to lt side s/p CA with chemotherapy tx- 3 years ago - Hypersensitiveity to Levaquin; switched to Rocephin/Azithromycin - Continue Mucinex, Tessalon Perles, Cough Syrup, RT/IS/FV, nebs- duoneb QID with xopenex due to side effects albuterol - Repeat CXR - Chronic changes, nothing acute - D-dimer negative - Negative cardiac workup, mycoplasma, flu, sputum and blood cultures - CT scan report reads persistent opacity in the left upper lobe may represent recurrent/residual tumor or pneumonia Anemia - Hgb 7.3 - Suspect dilutional - She carries a hx/o YESENIA - She is not on blood thinner - Hemoccult test and repeat Hgb level - Consider Iron infusion Hypersensitivity/Allergic Reaction to Levaquin - Continue PRN Benadryl and Cortisone Cream - IV Solumedrol 80 mg IVP x1 - Levaquin added to allergy list Resolved: Leukocytosis with bandemia - Etiology likely pneumonitis/pneumonia; tx plan as above - Cont with daily am labs S/p Dehydration- mild, improving - NS TRA 100cc/hr; bolus rec'd in ED - AG 17.8, tachycardic, mild hypotensive; no LA obtained in ED, afebrile- doubt sepsis. S/p Headache - Motrin - Monitor - Switched neb to zolpidem as patient feels this may be cause of headache. Chronic: Hx lung cancer, s/p lung resection with chemo tx 3 years ago Anemia- cont ferrous sulfate Acute on chronic back pain--continue home meds for chronic pain Pruritis Other: She is fairly stable Continue current treatment Continue PT/OT for generalized weakness O2 if needed to keep sats >90% Benadryl as needed for pruritus GI prohylaxis: H2B DVT prophylax-SCD's PCP is Marah Gray, [employer] Patient is Full Code status LOS anticipate > 96 hrs due to slow response to treatment and new onset of anemia
[2017-06-14] MEDS: Levalbuterol HCl 1.25 MG/3 ML Neb NEB SCH ×4 (06:52→20:52)
[2017-06-14] MEDS: Multivitamins,Therapeutic Tab PO SCH (09:19)
[2017-06-14] MEDS: Ferrous Sulfate 325 MG Tab PO SCH ×2 (09:19→20:18)
[2017-06-14] MEDS: guaiFENesin 600 MG Tab.ER PO SCH ×2 (09:20→20:18)
[2017-06-14] MEDS: Pregabalin 25 MG Cap PO SCH ×3 (09:21→20:17)
[2017-06-14] MEDS: Pregabalin 75 MG Cap PO SCH ×3 (09:23→20:17)
[2017-06-14] MEDS: ClonazePAM 0.5 MG Tab PO SCH ×3 (09:23→20:17)
[2017-06-14] MEDS: Benzonatate 100 MG Cap PO SCH ×3 (09:23→20:18)
[2017-06-14] MEDS: Levothyroxine 75 MCG Tab PO SCH (09:28)
[2017-06-14] MEDS: HYDROmorphone 2 MG Tab PO SCH ×2 (09:32→15:58)
[2017-06-14] MEDS: Ibuprofen 800 MG Tab PO PRN ×2 (11:06→15:51)
[2017-06-14] MEDS: cefTRIAXone 1 GM in Dextrose 5% in Water 100 ML IV SCH ×2 (13:56)
[2017-06-14] MEDS: Azithromycin 500 MG in Sodium Chloride 0.9% 250 ML IV SCH (15:32)
[2017-06-14] MEDS: Zolpidem 10 MG Tab PO SCH (20:17)
[2017-06-14] MEDS: Famotidine 20 MG Tab PO SCH (20:18)
[2017-06-14] MEDS: cloNIDine 0.1 MG Tab PO SCH (20:22)
[2017-06-15] MEDS: Levalbuterol HCl 1.25 MG/3 ML Neb NEB SCH ×2 (06:27→10:24)
--- NOTE | 2017-06-15 06:37 | PCM.DCSUM1 ---
Discharge Summary - Hospital Course Brief History: Zoila Odom is a 57-year-old female seen in the emergency department this morning for worsening symptoms of cough shortness of breath. In the emergency department she was found to be cold clammy and diaphoretic she was afebrile. - Discharge Data Discharge Date: 06/15/17 Discharge Disposition: Home, Self-Care 01 Condition: Fair - Discharge Diagnosis/Problem(s) (1) Pneumonitis SNOMED Code(s): 824759917 ICD Code: J18.9 - PNEUMONIA, UNSPECIFIED ORGANISM Status: Acute Priority : High (2) Dehydration SNOMED Code(s): 52499595 ICD Code: E86.0 - DEHYDRATION Status: Resolved (3) Headache SNOMED Code(s): 96836113 ICD Code: R51 - HEADACHE Status: Resolved Priority: Medium Qualifiers: Headache type: unspecified Headache chronicity pattern: acute headache Intractability: not intractable Qualified Code(s): R51 - Headache (4) Leukocytosis SNOMED Code(s): 084191275 ICD Code: D72.829 - ELEVATED WHITE BLOOD CELL COUNT, UNSPECIFIED Status: Resolved Priority: High Qualifiers: Leukocytosis type: bandemia Qualified Code(s): D72.825 - Bandemia (5) Anemia SNOMED Code(s): 571429147 ICD Code: D64.9 - ANEMIA, UNSPECIFIED Status: Acute Qualifiers: Anemia type: iron deficiency Iron deficiency anemia type: unspecified iron deficiency Qualified Code(s): D50.9 - Iron deficiency anemia, unspecified - Patient Summary/Data Operative Procedure(s) Performed: None Complications: None Consults: Consultations 06/12/17 09:17 OT Evaluation and Treatment [CONS] Routine PT Evaluation and Treatment [CONS] Routine Labs Pending at D/C: None Recommended Follow-up Testing/Procedures: None Planned Operative Procedure(s) after DC: None Hospital Course: Patient was primarily admitted for medical management of pneumonitis. 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 Unfortunately, she had a sudden dropped on her Hgb level with no clear source of etiology. But all basic GI work up so far was benign. However, patient felt pretty good and w/o any complaints. We discouraged her to leave due to her low Hgb level. But she was adamant to leave so she can go home to prepare and spend [place] with her family. She understood the consequences of leaving AMA and after discussing her options with her, she still made the decision to leave. - Patient Instructions Diet: Usual Diet as Tolerated Activity: As Tolerated Driving: Do Not Drive Showering/Bathing: May Shower Notify Provider of: Fever, Increased Pain, Nausea and/or Vomiting Other/Special Instructions: - Please take all medications as directed. - Resume all home medications. - Continue with routine home daily activities. - Follow up with your doctor in 1 week. - Call your doctor for any questions or concerns after discharge - Discharge Plan Prescriptions/Med Rec: Levofloxacin [Levaquin] 750 mg PO DAILY #3 tablet Home Medications: Home Meds ClonazePAM [KlonoPIN] 0.5 mg PO TID 04/18/14 [History] Pregabalin [Lyrica] 200 mg PO TID 04/18/14 [History] Levothyroxine 75 mcg PO DAILY 04/23/15 [History] HYDROmorphone [Dilaudid] 4 mg PO ,16 05/08/16 [History] Ferrous Sulfate [Iron] 325 mg PO BID 11/24/16 [History] Multivitamin [Multivitamins] 1 cap PO DAILY 11/24/16 [History] cloNIDine [Catapres] 0.2 mg PO BEDTIME 11/24/16 [History] Zolpidem [Ambien] 10 mg PO BEDTIME 03/25/17 [History] Enalapril [Vasotec] 2.5 mg PO DAILY 06/12/17 [History] Levofloxacin [Levaquin] 750 mg PO DAILY #3 tablet 06/15/17 [Rx] Referrals: Denise Gray NP [Ordering Only Provider] - 06/18/17 11:30 am (Follow-up with any needs about getting outpatient therapy or home health care.) PCP,None [Primary Care Provider] - - Discharge Summary/Plan Comment DC Time >30 min.: No Discharge Summary/Plan Comment: Patient left AMA - General Info Date of Service: 06/15/17 Admission Dx/Problem (Free Text: Admission Diagnosis/Problem Admission Diagnosis/Problem Pneumonitis Subjective Update: Follow Up - Review of Systems Systems Review Comment: Patient left AMA - Patient Data Vitals - Most Recent: Last Vital Signs Temp 36.5 C 06/15/17 02:55 Pulse 70 06/15/17 02:55 Resp 20 06/15/17 02:55 BP 102/56 L 06/15/17 02:55 Pulse Ox 97 06/15/17 06:27 Weight - Most Recent: 109.27 kg I&O - Last 24 hours: Intake & Output 06/14/17 06/14/17 06/15/17 14:59 22:59 06:59 Intake Total 240 1000 1400 Output Total 1550 1050 Balance 240 -550 350 Lab Results - Last 24 hrs: Laboratory Results - last 24 hr 06/14/17 06/14/17 06/14/17 Range/Units 05:46 05:46 08:30 WBC 2.88 L (3.98-10.04) K/mm3 RBC 2.44 L (3.98-5.22) M/mm3 Hgb 7.3 L* 7.9 L (11.2-15.7) gm/L Hct 22.7 L 24.6 L (34.1-44.9) % MCV 93.0 (79.4-94.8) fl MCH 29.9 (25.6-32.2) pg MCHC 32.2 (32.2-35.5) g/dl RDW Std Deviation 45.3 (36.4-46.3) fL Plt Count 49 L (182-369) K/mm3 MPV 10.2 (9.4-12.3) fl Neut % (Auto) 58.1 (34.0-71.1) % Lymph % (Auto) 34.0 (19.3-51.7) % [place] % (Auto) 7.3 (4.7-12.5) % Eos % (Auto) 0 L (0.7-5.8) Baso % (Auto) 0.3 (0.1-1.2) % Neut # (Auto) 1.67 (1.56-6.13) K/mm3 Lymph # (Auto) 0.98 L (1.18-3.74) K/mm3 [place] # (Auto) 0.21 L (0.24-0.36) K/mm3 Eos # (Auto) 0.00 L (0.04-0.36) K/mm3 Baso # (Auto) 0.01 (0.01-0.08) K/mm3 Manual Slide Review Abnormal smear Sodium 141 (136-145) mEq/L Potassium 4.3 (3.5-5.1) mEq/L Chloride 110 H (98-107) mEq/L Carbon Dioxide 25 (21-32) mEq/L Anion Gap 10.3 (5-15) BUN 17 (7-18) mg/dL Creatinine 0.6 (0.55-1.02) mg/dL Est Cr Clr Drug Dosing 106.81 mL/min Estimated GFR (MDRD) > 60 (>60) mL/min BUN/Creatinine Ratio 28.3 H (14-18) Glucose 113 H (74-106) mg/dL Calcium 8.2 L (8.5-10.1) mg/dL Magnesium 1.9 (1.8-2.4) mg/dl C-Reactive Protein < 0.2 (<1.0) mg/dL [facility] Results - Last 24 hrs: Microbiology 06/14/17 08:50 Gram Stain - Final Sputum - Expectorated Med Orders - Current: Current Medications Acetaminophen (Tylenol) 650 mg PO Q4H PRN PRN Reason: Pain (Mild 1-3)/fever Benzocaine/Menthol (Cepacol Sore Throat) 1 lozenge MUCMEM Q2HR PRN PRN Reason: Sore Throat Last Admin: 06/13/17 17:02 Dose: 1 lozenge Benzonatate (Tessalon Perles) 100 mg PO TID [facility] Last Admin: 06/14/17 20:18 Dose: 100 mg Clonazepam (Klonopin) 0.5 mg PO TID [facility] Last Admin: 06/14/17 20:17 Dose: 0.5 mg Clonidine HCl (Catapres) 0.2 mg PO BEDTIME [facility] Last Admin: 06/14/17 20:22 Dose: 0.2 mg Diphenhydramine HCl (Benadryl) 25 mg IVPUSH Q6H PRN PRN Reason: Itching Last Admin: 06/13/17 20:02 Dose: 25 mg Docusate Sodium (Colace) 100 mg PO BID PRN PRN Reason: Constipation Enalapril Maleate (Vasotec) 2.5 mg PO DAILY [facility] Last Admin: 06/14/17 09:28 Dose: Not Given Famotidine (Pepcid) 20 mg PO BID [facility] Last Admin: 06/14/17 20:18 Dose: 20 mg Ferrous Sulfate (Ferrous Sulfate) 325 mg PO BID [facility] Last Admin: 06/14/17 20:18 Dose: 325 mg Guaifenesin (Mucinex) 1,200 mg PO BID [facility] Last Admin: 06/14/17 20:18 Dose: 1,200 mg Guaifenesin/Codeine Phosphate (Robitussin Ac) 5 ml PO Q6H PRN PRN Reason: Cough Last Admin: 06/13/17 17:02 Dose: 5 ml Hydrocortisone (Hydrocortisone 1% Crm) 1 gm TOP Q6HR PRN PRN Reason: Itching Last Admin: 06/13/17 21:58 Dose: 1 dose Hydromorphone HCl (Dilaudid) 4 mg PO ,16 [facility] Last Admin: 06/14/17 15:58 Dose: 4 mg Hydromorphone HCl (Dilaudid) 1 mg IVPUSH Q3H PRN PRN Reason: Pain Azithromycin 500 mg/ Sodium (Chloride) 250 mls @ 250 mls/hr IV Q24H [facility] Last Admin: 06/14/17 15:32 Dose: 250 mls/hr Ceftriaxone Sodium 1 gm/ (Dextrose/Water) 100 mls @ 200 mls/hr IV Q24H [facility] Last Admin: 06/14/17 13:56 Dose: 200 mls/hr Ibuprofen (Motrin) 800 mg PO Q6H PRN PRN Reason: headache Last Admin: 06/14/17 15:51 Dose: 800 mg Levalbuterol HCl (Xopenex) 1.25 mg NEB QIDRT [facility] Last Admin: 06/15/17 06:27 Dose: 1.25 mg Levothyroxine Sodium (Levothyroxine) 75 mcg PO DAILY [facility] Last Admin: 06/14/17 09:28 Dose: 75 mcg Magnesium Hydroxide (Milk Of Magnesia) 30 ml PO Q12H PRN PRN Reason: Constipation Last Admin: 06/13/17 09:05 Dose: 30 ml Magnesium Sulfate (Pharmacy To Dose - Magnesium Replacement) 0 dose .XX ASDIRECTED PRN PRN Reason: RX TO WATCH MAG LEVELS Multivitamins (Thera) 1 each PO DAILY [facility] Last Admin: 06/14/17 09:19 Dose: 1 each Ondansetron HCl (Zofran Odt) 4 mg PO Q4H PRN PRN Reason: nausea, able to take PO Last Admin: 06/14/17 16:42 Dose: 4 mg Ondansetron HCl (Zofran) 4 mg IV Q4H PRN PRN Reason: Nausea/Vomiting Last Admin: 06/12/17 10:50 Dose: 4 mg Potassium Chloride (Pharmacy To Dose - Potassium Replacement) 0 dose .XX ASDIRECTED PRN PRN Reason: RX TO WATCH K LEVELS Pregabalin (Lyrica) 150 mg PO TID [facility] Last Admin: 06/14/17 20:17 Dose: 150 mg Pregabalin (Lyrica) 50 mg PO TID [facility] Last Admin: 06/14/17 20:17 Dose: 50 mg Temazepam (Restoril) 7.5 mg PO BEDTIME PRN PRN Reason: Sleep Zolpidem Tartrate (Ambien) 10 mg PO BEDTIME [facility] Last Admin: 06/14/17 20:17 Dose: 10 mg Discontinued Medications Hydrocodone Bitart/Acetaminophen ([place] 325-5 Mg) 1 tab PO Q4H PRN PRN Reason: Pain (moderate 4-6) Albuterol (Proventil Neb Soln) 2.5 mg NEB Q2H PRN PRN Reason: Shortness Of Breath/wheezing Albuterol/Ipratropium (Duoneb 3.0-0.5 Mg/3 Ml) 3 ml NEB ONETIME ONE Stop: 06/12/17 05:25 Last Admin: 06/12/17 05:30 Dose: 3 ml Albuterol/Ipratropium (Duoneb 3.0-0.5 Mg/3 Ml) Confirm Administered Dose 3 ml .ROUTE .STK-MED ONE Stop: 06/12/17 05:33 Last Admin: 06/12/17 05:37 Dose: Not Given Albuterol/Ipratropium (Duoneb 3.0-0.5 Mg/3 Ml) 3 ml NEB QIDRT [facility] Last Admin: 06/13/17 06:34 Dose: 3 ml Diphenhydramine HCl (Benadryl) 25 mg IVPUSH ONETIME ONE Stop: 06/13/17 21:33 Last Admin: 06/13/17 21:56 Dose: 25 mg Hydromorphone HCl (Dilaudid) 2 mg IVPUSH ONETIME ONE Stop: 06/12/17 06:23 Last Admin: 06/12/17 06:39 Dose: 2 mg Hydromorphone HCl (Dilaudid) 0.25 mg IVPUSH Q2H PRN PRN Reason: Pain (severe 7-10) Hydromorphone HCl (Dilaudid) 0.25 mg IVPUSH Q2H PRN PRN Reason: Pain (severe 7-10) Last Admin: 06/12/17 14:51 Dose: 0.25 mg Dextrose/Sodium Chloride (Dextrose 5%-Normal Saline) 1,000 mls @ 999 mls/hr IV ASDIRECTED [facility] Last Admin: 06/12/17 05:35 Dose: 150 mls/hr Levofloxacin/Dextrose 750 mg/ (Premix) 150 mls @ 100 mls/hr IV ONETIME ONE Stop: 06/12/17 07:52 Last Admin: 06/12/17 06:39 Dose: 100 mls/hr Sodium Chloride (Normal Saline) 1,000 mls @ 100 mls/hr IV ASDIRECTED [facility] Last Admin: 06/12/17 21:20 Dose: 100 mls/hr Levofloxacin/Dextrose 750 mg/ (Premix) 150 mls @ 100 mls/hr IV Q24H [facility] Last Admin: 06/14/17 06:14 Dose: 100 mls/hr Magnesium Sulfate 2 gm/ Premix 50 mls @ 25 mls/hr IV ONETIME ONE Stop: 06/13/17 16:29 Last Admin: 06/13/17 14:51 Dose: 25 mls/hr Sodium Ferric Gluconat/Sucrose (250 mg/ Sodium Chloride) 120 mls @ 60 mls/hr IV ONETIME ONE Stop: 06/14/17 12:29 Last Admin: 06/14/17 11:08 Dose: 60 mls/hr Levalbuterol HCl (Xopenex) 1.25 mg NEB Q4HRRT [facility] Last Admin: 06/13/17 19:34 Dose: Not Given Methylprednisolone Sodium Succinate (Solu-Medrol) 80 mg IVPUSH ONETIME ONE Stop: 06/14/17 06:37 Last Admin: 06/14/17 06:57 Dose: 80 mg Pantoprazole Sodium (Protonix Iv) 40 mg IV ONETIME ONE Stop: 06/12/17 10:01 Last Admin: 06/12/17 09:46 Dose: 40 mg Potassium Chloride (Klor-Con M20) 40 meq PO Q4H [facility] Stop: 06/13/17 16:01 Last Admin: 06/13/17 17:02 Dose: 40 meq - Exam Physical Findings Comments:: Patient left AMA *Q Meaningful Use (DIS) - VTE *Q VTE Criteria *Q: - Stroke *Q Stroke Criteria *Q: - AMI *Q AMI Criteria *Q:
[2017-06-15] MEDS ORDERED: Sodium Chloride 0.9% 500 ML IV ONE (06:58)
[2017-06-15] MEDS: Ferrous Sulfate 325 MG Tab PO SCH (08:08)
[2017-06-15] MEDS: ClonazePAM 0.5 MG Tab PO SCH (08:08)
[2017-06-15] MEDS: Pregabalin 25 MG Cap PO SCH (08:08)
[2017-06-15] MEDS: Multivitamins,Therapeutic Tab PO SCH (08:08)
[2017-06-15] MEDS: Levothyroxine 75 MCG Tab PO SCH (08:08)
[2017-06-15] MEDS: Pregabalin 75 MG Cap PO SCH (08:09)
[2017-06-15] MEDS: Benzonatate 100 MG Cap PO SCH (08:09)
[2017-06-15] MEDS: guaiFENesin 600 MG Tab.ER PO SCH (08:09)
[2017-06-15] MEDS: Famotidine 20 MG Tab PO SCH (08:09)
[2017-06-15] MEDS: HYDROmorphone 2 MG Tab PO SCH (08:22)
[2017-06-15] MEDS: cefTRIAXone 1 GM in Dextrose 5% in Water 100 ML IV SCH ×2 (09:39)
[2017-06-15 09:44] VITALS: BP 106/51
--- NOTE | 2017-06-15 09:47 | PCM.PN ---
- General Info Date of Service: 06/15/17 Admission Dx/Problem (Free Text): Admission Diagnosis/Problem Admission Diagnosis/Problem Pneumonitis Subjective Update: Follow Up Functional Status: Reports: Pain Controlled, Tolerating Diet, Ambulating, Urinating. Denies: New Symptoms - Patient Data Vitals - Most Recent: Last Vital Signs Temp 36.6 C 06/15/17 07:59 Pulse 68 06/15/17 07:59 Resp 16 06/15/17 07:59 BP 106/51 L 06/15/17 09:38 Pulse Ox 97 06/15/17 07:59 Weight - Most Recent: 109.27 kg I&O - Last 24 Hours: Intake & Output 06/14/17 06/15/17 06/15/17 22:59 06:59 14:59 Intake Total 1240 1400 Output Total 1550 1050 Balance -310 350 Lab Results Last 24 Hours: Laboratory Results - last 24 hr 06/15/17 06/15/17 Range/Units 05:19 05:19 WBC 4.35 (3.98-10.04) K/mm3 RBC 2.42 L (3.98-5.22) M/mm3 Hgb 7.1 L* (11.2-15.7) gm/L Hct 22.9 L (34.1-44.9) % MCV 94.6 (79.4-94.8) fl MCH 29.3 (25.6-32.2) pg MCHC 31.0 L (32.2-35.5) g/dl RDW Std Deviation 46.1 (36.4-46.3) fL Plt Count 44 L (182-369) K/mm3 MPV 10.6 (9.4-12.3) fl Neut % (Auto) 79.9 H (34.0-71.1) % Lymph % (Auto) 14.3 L (19.3-51.7) % [place] % (Auto) 5.3 (4.7-12.5) % Eos % (Auto) 0 L (0.7-5.8) Baso % (Auto) 0.0 L (0.1-1.2) % Neut # (Auto) 3.48 (1.56-6.13) K/mm3 Lymph # (Auto) 0.62 L (1.18-3.74) K/mm3 [place] # (Auto) 0.23 L (0.24-0.36) K/mm3 Eos # (Auto) 0.00 L (0.04-0.36) K/mm3 Baso # (Auto) 0.00 L (0.01-0.08) K/mm3 Manual Slide Review Abnormal smear Sodium 143 (136-145) mEq/L Potassium 4.3 (3.5-5.1) mEq/L Chloride 111 H (98-107) mEq/L Carbon Dioxide 27 (21-32) mEq/L Anion Gap 9.3 (5-15) BUN 14 (7-18) mg/dL Creatinine 0.6 (0.55-1.02) mg/dL Est Cr Clr Drug Dosing 106.81 mL/min Estimated GFR (MDRD) > 60 (>60) mL/min BUN/Creatinine Ratio 23.3 H (14-18) Glucose 117 H (74-106) mg/dL Calcium 8.7 (8.5-10.1) mg/dL Magnesium 2.0 (1.8-2.4) mg/dl C-Reactive Protein < 0.2 (<1.0) mg/dL Tim Results Last 24 Hours: Microbiology 06/14/17 08:50 Gram Stain - Final Sputum - Expectorated Sputum Culture - Preliminary 06/15/17 06:13 Stool Occult Blood (TIM) - Final Stool / Feces POSITIVE OCCULT BLOOD Med Orders - Current: Current Medications Acetaminophen (Tylenol) 650 mg PO Q4H PRN PRN Reason: Pain (Mild 1-3)/fever Benzocaine/Menthol (Cepacol Sore Throat) 1 lozenge MUCMEM Q2HR PRN PRN Reason: Sore Throat Last Admin: 06/13/17 17:02 Dose: 1 lozenge Benzonatate (Tessalon Perles) 100 mg PO TID [facility] Last Admin: 06/15/17 08:09 Dose: 100 mg Clonazepam (Klonopin) 0.5 mg PO TID [facility] Last Admin: 06/15/17 08:08 Dose: 0.5 mg Clonidine HCl (Catapres) 0.2 mg PO BEDTIME [facility] Last Admin: 06/14/17 20:22 Dose: 0.2 mg Diphenhydramine HCl (Benadryl) 25 mg IVPUSH Q6H PRN PRN Reason: Itching Last Admin: 06/13/17 20:02 Dose: 25 mg Docusate Sodium (Colace) 100 mg PO BID PRN PRN Reason: Constipation Enalapril Maleate (Vasotec) 2.5 mg PO DAILY [facility] Last Admin: 06/14/17 09:28 Dose: Not Given Famotidine (Pepcid) 20 mg PO BID [facility] Last Admin: 06/15/17 08:09 Dose: 20 mg Ferrous Sulfate (Ferrous Sulfate) 325 mg PO BID [facility] Last Admin: 06/15/17 08:08 Dose: 325 mg Guaifenesin (Mucinex) 1,200 mg PO BID [facility] Last Admin: 06/15/17 08:09 Dose: 1,200 mg Guaifenesin/Codeine Phosphate (Robitussin Ac) 5 ml PO Q6H PRN PRN Reason: Cough Last Admin: 06/13/17 17:02 Dose: 5 ml Hydrocortisone (Hydrocortisone 1% Crm) 1 gm TOP Q6HR PRN PRN Reason: Itching Last Admin: 06/13/17 21:58 Dose: 1 dose Hydromorphone HCl (Dilaudid) 4 mg PO ,16 [facility] Last Admin: 06/15/17 08:22 Dose: 4 mg Hydromorphone HCl (Dilaudid) 1 mg IVPUSH Q3H PRN PRN Reason: Pain Azithromycin 500 mg/ Sodium (Chloride) 250 mls @ 250 mls/hr IV Q24H [facility] Last Admin: 06/14/17 15:32 Dose: 250 mls/hr Ceftriaxone Sodium 1 gm/ (Dextrose/Water) 100 mls @ 200 mls/hr IV Q24H [facility] Last Admin: 06/15/17 09:39 Dose: 200 mls/hr Ibuprofen (Motrin) 800 mg PO Q6H PRN PRN Reason: headache Last Admin: 06/14/17 15:51 Dose: 800 mg Levalbuterol HCl (Xopenex) 1.25 mg NEB QIDRT [facility] Last Admin: 06/15/17 06:27 Dose: 1.25 mg Levothyroxine Sodium (Levothyroxine) 75 mcg PO DAILY [facility] Last Admin: 06/15/17 08:08 Dose: 75 mcg Magnesium Hydroxide (Milk Of Magnesia) 30 ml PO Q12H PRN PRN Reason: Constipation Last Admin: 06/13/17 09:05 Dose: 30 ml Magnesium Sulfate (Pharmacy To Dose - Magnesium Replacement) 0 dose .XX ASDIRECTED PRN PRN Reason: RX TO WATCH MAG LEVELS Multivitamins (Thera) 1 each PO DAILY [facility] Last Admin: 06/15/17 08:08 Dose: 1 each Ondansetron HCl (Zofran Odt) 4 mg PO Q4H PRN PRN Reason: nausea, able to take PO Last Admin: 06/14/17 16:42 Dose: 4 mg Ondansetron HCl (Zofran) 4 mg IV Q4H PRN PRN Reason: Nausea/Vomiting Last Admin: 06/12/17 10:50 Dose: 4 mg Potassium Chloride (Pharmacy To Dose - Potassium Replacement) 0 dose .XX ASDIRECTED PRN PRN Reason: RX TO WATCH K LEVELS Pregabalin (Lyrica) 150 mg PO TID [facility] Last Admin: 06/15/17 08:09 Dose: 150 mg Pregabalin (Lyrica) 50 mg PO TID [facility] Last Admin: 06/15/17 08:08 Dose: 50 mg Temazepam (Restoril) 7.5 mg PO BEDTIME PRN PRN Reason: Sleep Zolpidem Tartrate (Ambien) 10 mg PO BEDTIME [facility] Last Admin: 06/14/17 20:17 Dose: 10 mg Discontinued Medications Hydrocodone Bitart/Acetaminophen ([place] 325-5 Mg) 1 tab PO Q4H PRN PRN Reason: Pain (moderate 4-6) Albuterol (Proventil Neb Soln) 2.5 mg NEB Q2H PRN PRN Reason: Shortness Of Breath/wheezing Albuterol/Ipratropium (Duoneb 3.0-0.5 Mg/3 Ml) 3 ml NEB ONETIME ONE Stop: 06/12/17 05:25 Last Admin: 06/12/17 05:30 Dose: 3 ml Albuterol/Ipratropium (Duoneb 3.0-0.5 Mg/3 Ml) Confirm Administered Dose 3 ml .ROUTE .STK-MED ONE Stop: 06/12/17 05:33 Last Admin: 06/12/17 05:37 Dose: Not Given Albuterol/Ipratropium (Duoneb 3.0-0.5 Mg/3 Ml) 3 ml NEB QIDRT [facility] Last Admin: 06/13/17 06:34 Dose: 3 ml Diphenhydramine HCl (Benadryl) 25 mg IVPUSH ONETIME ONE Stop: 06/13/17 21:33 Last Admin: 06/13/17 21:56 Dose: 25 mg Hydromorphone HCl (Dilaudid) 2 mg IVPUSH ONETIME ONE Stop: 06/12/17 06:23 Last Admin: 06/12/17 06:39 Dose: 2 mg Hydromorphone HCl (Dilaudid) 0.25 mg IVPUSH Q2H PRN PRN Reason: Pain (severe 7-10) Hydromorphone HCl (Dilaudid) 0.25 mg IVPUSH Q2H PRN PRN Reason: Pain (severe 7-10) Last Admin: 06/12/17 14:51 Dose: 0.25 mg Dextrose/Sodium Chloride (Dextrose 5%-Normal Saline) 1,000 mls @ 999 mls/hr IV ASDIRECTED [facility] Last Admin: 06/12/17 05:35 Dose: 150 mls/hr Levofloxacin/Dextrose 750 mg/ (Premix) 150 mls @ 100 mls/hr IV ONETIME ONE Stop: 06/12/17 07:52 Last Admin: 06/12/17 06:39 Dose: 100 mls/hr Sodium Chloride (Normal Saline) 1,000 mls @ 100 mls/hr IV ASDIRECTED [facility] Last Admin: 06/12/17 21:20 Dose: 100 mls/hr Levofloxacin/Dextrose 750 mg/ (Premix) 150 mls @ 100 mls/hr IV Q24H [facility] Last Admin: 06/14/17 06:14 Dose: 100 mls/hr Magnesium Sulfate 2 gm/ Premix 50 mls @ 25 mls/hr IV ONETIME ONE Stop: 06/13/17 16:29 Last Admin: 06/13/17 14:51 Dose: 25 mls/hr Sodium Ferric Gluconat/Sucrose (250 mg/ Sodium Chloride) 120 mls @ 60 mls/hr IV ONETIME ONE Stop: 06/14/17 12:29 Last Admin: 06/14/17 11:08 Dose: 60 mls/hr Sodium Chloride (Normal Saline) 500 mls @ 350 mls/hr IV .BOLUS ONE Stop: 06/15/17 08:23 Last Admin: 06/15/17 08:03 Dose: 350 mls/hr Levalbuterol HCl (Xopenex) 1.25 mg NEB Q4HRRT [facility] Last Admin: 06/13/17 19:34 Dose: Not Given Methylprednisolone Sodium Succinate (Solu-Medrol) 80 mg IVPUSH ONETIME ONE Stop: 06/14/17 06:37 Last Admin: 06/14/17 06:57 Dose: 80 mg Pantoprazole Sodium (Protonix Iv) 40 mg IV ONETIME ONE Stop: 06/12/17 10:01 Last Admin: 06/12/17 09:46 Dose: 40 mg Potassium Chloride (Klor-Con M20) 40 meq PO Q4H [facility] Stop: 06/13/17 16:01 Last Admin: 06/13/17 17:02 Dose: 40 meq - Problem List & Annotations (1) Pneumonitis SNOMED Code(s): 027917159 Code(s): J18.9 - PNEUMONIA, UNSPECIFIED ORGANISM Status: Acute Priority: High Current Visit: Yes (2) Dehydration SNOMED Code(s): 81771960 Code(s): E86.0 - DEHYDRATION Status: Resolved Current Visit: Yes (3) Headache SNOMED Code(s): 91334311 Code(s): R51 - HEADACHE Status: Resolved Priority: Medium Current Visit : Yes Qualifiers: Headache type: unspecified Headache chronicity pattern: acute headache Intractability: not intractable Qualified Code(s): R51 - Headache (4) Leukocytosis SNOMED Code(s): 974686832 Code(s): D72.829 - ELEVATED WHITE BLOOD CELL COUNT, UNSPECIFIED Status: Resolved Priority: High Current Visit: Yes Qualifiers: Leukocytosis type: bandemia Qualified Code(s): D72.825 - Bandemia (5) Anemia SNOMED Code(s): 590223490 Code(s): D64.9 - ANEMIA, UNSPECIFIED Status: Acute Current Visit: Yes Qualifiers: Anemia type: iron deficiency Iron deficiency anemia type: unspecified iron deficiency Qualified Code(s): D50.9 - Iron deficiency anemia, unspecified - My Orders Last 24 Hours: My Active Orders 06/14/17 09:46 Chest wo Cont [CT] Routine 06/14/17 09:50 Hemoccult [OCCULT BLOOD DIAGNOSTIC] [OP] Routine 06/14/17 10:00 cefTRIAXone [Rocephin] 1 gm Dextrose 5% in Water 100 ml IV Q24H 06/14/17 11:00 Azithromycin [Zithromax] 500 mg Sodium Chloride 0.9% [Normal Saline] 250 ml IV Q24H 06/14/17 21:00 Famotidine [Pepcid] 20 mg PO BID - Plan Plan:: I/P: Acute: Pneumonitis with mild hypoxia: Likely early evolving Lt sided pneumonia - Cough with prod yellow sputum x 12 days, was seen at clinic yesterday rx'd doxycycline- took one tab - S/P lung resection to lt side s/p CA with chemotherapy tx- 3 years ago - Hypersensitiveity to Levaquin; switched to Rocephin/Azithromycin - Continue Mucinex, Tessalon Perles, Cough Syrup, RT/IS/FV, nebs- duoneb QID with xopenex due to side effects albuterol - Repeat CXR - Chronic changes, nothing acute - D-dimer negative - Negative cardiac workup, mycoplasma, flu, sputum and blood cultures - CT scan report reads persistent opacity in the left upper lobe may represent recurrent/residual tumor or pneumonia Anemia - Hgb 7.3 - Suspect dilutional - She carries a hx/o YESENIA - She is not on blood thinner - Hemoccult test and repeat Hgb level - Consider Iron infusion Hypersensitivity/Allergic Reaction to Levaquin - Continue PRN Benadryl and Cortisone Cream - IV Solumedrol 80 mg IVP x1 - Levaquin added to allergy list Resolved: Leukocytosis with bandemia - Etiology likely pneumonitis/pneumonia; tx plan as above - Cont with daily am labs S/p Dehydration- mild, improving - NS TRA 100cc/hr; bolus rec'd in ED - AG 17.8, tachycardic, mild hypotensive; no LA obtained in ED, afebrile- doubt sepsis. S/p Headache - Motrin - Monitor - Switched neb to zolpidem as patient feels this may be cause of headache. Chronic: Hx lung cancer, s/p lung resection with chemo tx 3 years ago Anemia- cont ferrous sulfate Acute on chronic back pain--continue home meds for chronic pain Pruritis Other: She is fairly stable Continue current treatment Continue PT/OT for generalized weakness O2 if needed to keep sats >90% Benadryl as needed for pruritus GI prohylaxis: H2B DVT prophylax-SCD's PCP is YASMINE CampbellP Patient is Full Code status LOS anticipate > 96 hrs due to slow response to treatment and new onset of anemia
--- NOTE | 2017-06-15 10:37 | PCM.SN ---
- Free Text/Narrative Note: Patient is wanting to leave AMA. We discouraged her because of her low Hg level of 7.1. We are still in process of figuring out why the sudden dropped in level level for the second time. Hemoccult test has not come back and no obvious source bleed reported. She feels better overall and reports no new complaints. We are considering repeating her level this afternoon. Unfortunately, she feels strongly to be with her family for the holiday. She tells me this could be her last "Mary" with family. She however denies being suicidal or homocidal. No thoughts of harming herself at all.
--- NOTE | 2017-06-15 10:56 | CT ---
CT chest Technique: Previous left lung surgery is noted. Parenchymal density is noted within the left upper chest abutting the chest wall. This appears fairly similar to prior exam. There is a lymph node being seen in this area measuring about 1.5 cm in size which is felt to be stable. Right-sided infusion port is seen. Atherosclerotic calcification is noted within the aorta. Nodular density in surface contour is seen within the liver suspicious for cirrhosis. Surgical clips are noted from prior cholecystectomy. Spleen is likely enlarged. Lungs otherwise are clear. Bone window settings were reviewed show mild degenerative endplate spurring within the spine. Degenerative spurring and vacuum phenomena noted at the sternoclavicular joint which is worse on the left side. Impression: 1. Parenchymal density within the left upper chest which is stable from prior chest CT of 10/15/16. Findings could represent stable neoplasm as well as scarring. Stable lymph node is seen in this region. 2. Probable cirrhosis. This is also stable from prior exam. 3. Other incidental findings as noted above also felt to be stable. Diagnostic code #3 I agree with preliminary report issued by [facility] ([facility] report finalized on 06/14/17, 1:39 PM Central Time)
[2017-06-15] MEDS: Azithromycin 500 MG in Sodium Chloride 0.9% 250 ML IV SCH (11:37)
== END 2017-06-15 12:30 | disposition home or self-care (01) | DRG 195 ==
LOC: JD.ED 05:18 → JD.MS 07:33 → UNDOADMIN 07:46
PROVIDERS: ADMIT Internal Medicine; ATTEND Internal Medicine
DX: J18.9 Pneumonia, unspecified organism (principal); R09.02 Hypoxemia; E86.9 Volume depletion, unspecified; E86.0 Dehydration; R51 Headache; D72.825 Bandemia; D50.9 Iron deficiency anemia, unspecified; F41.9 Anxiety disorder, unspecified; E03.9 Hypothyroidism, unspecified; Z87.891 Personal history of nicotine dependence; Z85.118 Personal history of other malignant neoplasm of bronchus and lung; Z88.0 Allergy status to penicillin; Z91.040 Latex allergy status; Z88.2 Allergy status to sulfonamides; Z79.899 Other long term (current) drug therapy
CPT/HCPCS: 36415; 71010; 80053; 82553; 83880; 84484; 85025; 85379; 86140; 86738; 87040 ×2; 87804 ×2; 93005; 94640; 96361; 96365; 96375; 99285; J1170; J1956; J7042; 71020; 71020-26; 71250; 71250-26; 80048; 81003; 82272; 83735; 85014; 85018; 87070; 87205; 87899; 94667; 94668; 94760; 94761; 97110-GP; 97116-GP; 97161-GP; 97162-GP; 97166-GO; 97530-GO; 97535-GO; 99284-25; A9270-GY; C9113; J0456; J0696; J1200; J2405; J2916; J2920; J3475; J7030; J7040; J7050; J7060; J7612

== ENCOUNTER 2017-06-16 20:07 | Emergency (ER) | payer MEDICARE, MEDICAID ==
[2017-06-16 20:21] VITALS: BP 135/73
[2017-06-16] MEDS ORDERED: Sodium Chloride 0.9% 10 ML Syringe FLUSH PRN ×2 (20:41→22:34)
[2017-06-16] MEDS ORDERED: HYDROmorphone 1 MG/ML Syringe IVPUSH ONE (20:56)
[2017-06-16] MEDS ORDERED: Ondansetron 4 MG/2 ML SDV IVPUSH ONE (20:58)
[2017-06-16] MEDS ORDERED: Sodium Chloride 0.9% 1,000 ML IV SCH (21:00)
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
[2017-06-16] MEDS ORDERED: Pantoprazole 40 MG Vial IVPUSH ONE (22:08)
[2017-06-16] MEDS ORDERED: Iopamidol 755 Mg/ML 100 ML Bottle IVPUSH ONE (22:34)
[2017-06-16] MEDS ORDERED: Diatrizoate Meglumine/Diatrizoate Sodium 37% 120 ML Bottle PO ONE (22:34)
[2017-06-16] MEDS ORDERED: diphenhydrAMINE 50 MG Cap PO ONE (22:43)
[2017-06-16] MEDS ORDERED: Sodium Chloride 0.9% 100 ML IV SCH (22:45)
[2017-06-17] MEDS ORDERED: Pantoprazole 40 MG Vial IVPUSH ONE (00:01)
[2017-06-17] MEDS ORDERED: Pantoprazole 80 MG in Sodium Chloride 0.9% 100 ML IV ONE (00:02)
[2017-06-17] MEDS ORDERED: HYDROmorphone 1 MG/ML Syringe IVPUSH ONE (00:21)
[2017-06-17] MEDS ORDERED: Sodium Chloride 0.9% 1,000 ML IV SCH (00:30)
[2017-06-17] MEDS ORDERED: Metoclopramide 10 MG/2 ML SDV IVPUSH ONE (01:36)
--- NOTE | 2017-06-17 07:58 | CT ---
CT chest Technique: Multiple axial sections were obtained through the chest. Intravenous contrast was utilized. Study has been performed as a pulmonary angiogram protocol. Comparison: Previous chest CT of 06/14/17 is available. Findings: Pulmonary arteries are well-opacified. No filling defects are identified to indicate pulmonary embolism. Enhancing nodule identified within the left upper chest which is stable from previous chest CT. Parenchymal density is noted within the left lung apex which remain stable. Lungs otherwise are clear. Scattered degenerative change seen within the spine. No acute bony abnormalities seen. Right-sided infusion port is seen. Findings within the abdomen as described on abdominal CT. Impression: 1. No findings of pulmonary embolism. 2. Parenchymal density within the left upper chest which remain stable most likely representing scarring and less likely representing stable neoplastic change. Stable lymph node seen in this region. 3. Other incidental findings. Nothing acute is appreciated. Diagnostic code #3 I agree with preliminary report issued by [facility] ([facility] report finalized on 06/17/17, 12:32 AM Central Time)
--- NOTE | 2017-06-17 07:58 | CT ---
CT abdomen and pelvis Technique: Multiple axial sections were obtained from above the dome of the diaphragm inferiorly through the pubic symphysis. Intravenous contrast and oral contrast has been given. Comparison: Previous abdominal ultrasound of 03/26/[address] as previous CT abdomen and pelvis study of 10/15/16. Findings: Liver is nodular in its surface contours compatible with cirrhosis. Spleen is enlarged with length of 22.4 cm. Mild amount of ascites is identified around the liver as well as off the inferior spleen. Fluid extends down the paracolic gutters into the pelvis. This fluid is an interval change from prior exam. Adrenal glands show no nodule. Kidneys show symmetric contrast enhancement. Two cysts are identified within the left kidney. Largest cyst measures approximately 1.7 cm. Aorta shows diffuse atherosclerotic calcification which continues into the iliac vessels without aneurysm. Surgical clips seen from prior cholecystectomy. Small retroperitoneal lymph nodes are seen which are felt to be within normal limits. Hazy increased density within the mesentery is seen which is felt compatible with mesenteric congestion. No pelvic mass or adenopathy is seen. Delayed images show contrast within the distal ureters and bladder. Bone window settings were reviewed which show scattered degenerative change within the spine. Impression: 1. Cirrhosis. Enlarged spleen with length of 22.4 cm. 2. Mild ascites is seen which is an interval change from prior CT exam. 3. Other incidental findings as noted above. Diagnostic code #3 I agree with preliminary report issued by [facility] ([facility] report finalized on 06/17/17, 12:38 AM Central Time)
--- NOTE | 2017-06-17 07:59 | CR ---
Chest: Frontal view of the chest was obtained. Comparison: Previous chest x-ray of 06/16/17. Parenchymal density with left upper chest is again noted. Previous surgery is seen within the left chest with surgical clips noted within the left hilum. Right lung is clear. Right-sided infusion port is noted. Intramedullary terry is noted within the right humerus. Scoliosis is seen within the spine. Impression: 1. Parenchymal density within the left upper chest which appears stable from previous studies. Previous surgery within the left chest. 2. Other incidental findings. Nothing acute is appreciated. Diagnostic code #2
--- NOTE | 2017-06-17 07:59 | CR ---
Abdomen: Supine and upright views of the abdomen were obtained. Comparison: No prior abdominal x-ray. Mild scoliosis and slight degenerative change is noted within the spine. Surgical clips are seen from prior cholecystectomy. Vascular calcification is noted within the left upper abdomen. Bowel gas pattern is normal. No free air is seen. Impression: 1. Incidental findings. Diagnostic code #2
== END 2017-06-17 01:40 ==
LOC: JD.ED 20:07 → SUPCPDRO 20:07 → JD.ED 06-17 01:40
DX: D50.9 Iron deficiency anemia, unspecified (principal); K92.2 Gastrointestinal hemorrhage, unspecified; F17.210 Nicotine dependence, cigarettes, uncomplicated; Z91.040 Latex allergy status; Z88.0 Allergy status to penicillin; Z88.2 Allergy status to sulfonamides; Z79.899 Other long term (current) drug therapy; Z87.19 Personal history of other diseases of the digestive system
CPT/HCPCS: 36415; 71010; 71275; 74020; 74177; 80053; 83605; 83690; 84484; 85025; 85379; 86140; 93005; 96361; 96365; 96375; 96376; 99285; A9270; C9113; J1170; J2405; J2765; J7030; J7040; J7050; Q9963; Q9967; 93010; 99284

== ENCOUNTER 2021-04-11 08:15 | Emergency (ER) | payer MEDICARE, MEDICAID ==
[2021-04-11] MEDS ORDERED: Sodium Chloride 0.9% 10 ML Syringe FLUSH PRN (08:32)
--- NOTE | 2021-04-11 09:01 | CT ---
Head CT Technique: Multiple axial sections through the brain were obtained. Intravenous contrast was not utilized. Reconstructed coronal and sagittal images were obtained. Comparison: No prior intracranial imaging is available. Findings: Ventricles along with basal cisterns and sulci over the convexities are slightly prominent. Decreased atrophy is seen within the distribution of the right middle cerebral artery. Minimal diminished density is seen within a portion of the right temporal region. Difficult to exclude early infarct. No other abnormal parenchymal densities are seen. No evidence of intracranial hemorrhage is seen. No midline shift or mass-effect is seen. Bone window settings were reviewed. Visualized mastoid sinuses and paranasal sinuses show nothing acute. No acute calvarial abnormality is appreciated. Impression: 1. Decreased atrophy in the distribution of the right middle cerebral artery with minimal diminished density questioned within the right temporal region. Difficult to exclude right-sided acute infarct. MRI would be confirmatory if clinically needed. 2. Other minimal senescent change as noted above. Diagnostic code #5 Preliminary report was discussed with Dr. Bermudez on 04/11/21 at 8:57 AM.
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
--- NOTE | 2021-04-11 10:21 | MR ---
MRI brain Technique: T1 sagittal; T2, T2 FLAIR, T1, gradient echo and diffusion axial; T1 weighted and T2 gradient echo coronal images were obtained through the brain. Comparison: Prior head CT study performed on the same day (8:28 AM). Findings: Diffusion images shows minimal abnormal diffusion within the right temporal lobe. This area shows minimal increased signal on the FLAIR sequence and is felt compatible with a minimal small fairly acute infarct. No other abnormal diffusion is seen within the right-sided brain. Other portions of the brain also show no additional diffusion abnormality. Ventricles along with basal cisterns and sulci over the convexities are mildly prominent. Slight increased atrophy within the left side as compared to the right side is seen which is likely chronic. Minimal areas of increased signal are seen within the periventricular and subcortical white matter which are felt compatible with small vessel ischemic demyelination change. No other abnormal signal is seen within the brain parenchyma. No midline shift or mass-effect is seen. Normal signal void is seen within the major cerebral arteries within the skull base. Visualized mastoid sinuses and visualized paranasal sinuses show nothing acute. Impression: 1. Findings compatible with minimal acute infarct within the right temporal region which appears irreversible. No additional infarct is seen. 2. Slight asymmetric atrophy which is more prominent on the left side and is likely chronic. 3. No additional abnormality is appreciated. Diagnostic code #3
[2021-04-11 11:59] VITALS: BP 114/57; PULSE 98
== END 2021-04-11 12:18 | disposition home or self-care (01) ==
LOC: JD.ED 08:15
DX: K92.2 Gastrointestinal hemorrhage, unspecified (principal); I63.9 Cerebral infarction, unspecified; E72.20 Disorder of urea cycle metabolism, unspecified; K72.90 Hepatic failure, unspecified without coma; E03.9 Hypothyroidism, unspecified; D64.9 Anemia, unspecified; Z91.048 Other nonmedicinal substance allergy status; Z88.8 Allergy status to other drugs, medicaments and biological substances; Z88.1 Allergy status to other antibiotic agents; Z91.040 Latex allergy status; Z88.0 Allergy status to penicillin; Z88.2 Allergy status to sulfonamides; Z79.899 Other long term (current) drug therapy; Z20.822 Contact with and (suspected) exposure to COVID-19
CPT/HCPCS: 36415; 70450; 70551; 80053; 81001; 82140; 82947; 83605; 83690; 83735; 83880; 84484; 85025; 85610; 85730; 86140; 93005; 99285; U0002